=== PATIENT | male | born 1935 | race American Indian/Alaskan Native ===

== ENCOUNTER 2020-09-02 09:08 | Emergency (ER) | payer MEDICARE ==
--- NOTE | 2020-09-02 11:08 | Emergency Department Report ---
HPI - General Chief Complaint: Dyspnea/Respdistress Time Seen by Provider: 09/02/20 10:17 - HPI HPI: 84-year-old male with history of dementia brought in by EMS [facility] his [facility] reportedly for complaint of the patient being unresponsive. However, ac cording to the EMS report, when they arrived the patient was alert and oriented and without complaints. It is unclear why he was transported to the emergency room. The patient is alert and oriented to self and place but not to time or situation. However he is able to converse and answer questions appropriately. He denies any physical symptoms or complaints whatsoever. He denies any fever/chills, vision change, headache, chest pain, cough, shortness of breath, abdominal pain, nausea/vomiting, dysuria, focal weakness, sensory changes, or any other complaints. ED Past Medical Hx - Past Medical History Previous Medical History?: Yes Hx CVA: No Hx Congestive Heart Failure: No Hx Deep Vein Thrombosis: No Hx of Cancer: No Hx Arthritis: No Hx Asthma: No Hx COPD: No Additional medical history: ALzhiemers - Surgical History Past Surgical History?: No - Social History Smoking Status: Unknown if ever smoked Substance Use Type: None - Medications Home Medications: Home Medications Medication Instructions Recorded Confirmed Last Taken Type Unobtainable 09/02/20 09/02/20 Unknown History ED Review of Systems ROS: Stated complaint: SOB Other details as noted in HPI Constitutional: denies: chills, fever Eyes: denies: eye pain, vision change ENT: denies: throat pain, congestion Respiratory: denies: cough, shortness of breath Cardiovascular: denies: chest pain, palpitations, syncope Gastrointestinal: denies: abdominal pain, nausea, vomiting Genitourinary: denies: dysuria, frequency Musculoskeletal: denies: back pain Skin: denies: rash Neurological: denies: headache, weakness, numbness Physical Exam - Physical Exam Vital Signs: Vital Signs 09/02/20 09/02/20 09/02/20 09:36 09:42 09:43 Temperature 97.4 F L 97.4 F L Pulse Rate 89 18 L Respiratory 16 18 18 Rate Blood Pressure 154/73 Blood Pressure 154/86 [Left] O2 Sat by Pulse 99 99 99 Oximetry Physical Exam: GENERAL: Skinny elderly male. No acute distress HEENT: Normocephalic. No obvious signs of trauma. Moist mucous membranes. EYES: Extraocular movements are intact. Pupils are equal round and reactive to light bilaterally NECK: Supple. Trachea is midline. LUNGS: Nonlabored breathing. Equal chest rise bilaterally. Clear to auscultation bilaterally. HEART/CARDIOVASCULAR: Regular rate and rhythm. No murmurs or rubs. VASCULAR: 2+ peripheral pulses. Cap refill < 2 seconds ABDOMEN: Abdomen is soft and nondistended. There is no significant tenderness, guarding or rebound. SKIN: Skin is warm and dry NEURO: Patient is awake, alert, and oriented to self and place. 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 No focal deficits. Normal motor and sensory exam throughout. Normal speech. MUSCULOSKELETAL: No obvious deformities. No significant tenderness. Normal ROM throughout. BACK/SPINE: No midline tenderness or step-offs of the C/T/L spine. No costovertebral angle tenderness. ED Course Vital Signs 09/02/20 09/02/20 09/02/20 09:36 09:42 09:43 Temperature 97.4 F L 97.4 F L Pulse Rate 89 18 L Respiratory 16 18 18 Rate Blood Pressure 154/73 Blood Pressure 154/86 [Left] O2 Sat by Pulse 99 99 99 Oximetry ED Medical Decision Making - Lab Data Result diagrams: 09/02/20 14:45 09/02/20 14:45 Lab Results 09/02/20 09/02/20 09/02/20 Range/Units 14:45 14:45 14:45 WBC 8.1 (4.5-11.0) K/mm3 RBC 3.90 (3.65-5.03) M/mm3 Hgb 12.8 (11.8-15.2) gm/dl Hct 38.4 (35.5-45.6) % MCV 99 H (84-94) fl MCH 33 H (28-32) pg MCHC 33 (32-34) % RDW 14.6 (13.2-15.2) % Plt Count 132 L (140-440) K/mm3 Lymph % (Auto) 11.0 L (13.4-35.0) % [place] % (Auto) 8.7 H (0.0-7.3) % Eos % (Auto) 0.1 (0.0-4.3) % Baso % (Auto) 1.0 (0.0-1.8) % Lymph # (Auto) 0.9 L (1.2-5.4) K/mm3 [place] # (Auto) 0.7 (0.0-0.8) K/mm3 Eos # (Auto) 0.0 (0.0-0.4) K/mm3 Baso # (Auto) 0.1 (0.0-0.1) K/mm3 Seg Neutrophils % 79.2 H (40.0-70.0) % Seg Neutrophils # 6.4 (1.8-7.7) K/mm3 Sodium 137 (137-145) mmol/L Potassium 4.1 (3.6-5.0) mmol/L Chloride 102.8 (98-107) mmol/L Carbon Dioxide 25 (22-30) mmol/L Anion Gap 13 mmol/L BUN 18 (9-20) mg/dL Creatinine 1.1 (0.8-1.3) mg/dL Estimated GFR > 60 ml/min BUN/Creatinine Ratio 16 % Glucose 133 H (75-100) mg/dL Calcium 8.9 (8.4-10.2) mg/dL Magnesium 2.10 (1.7-2.3) mg/dL Total Bilirubin 0.40 (0.1-1.2) mg/dL Direct Bilirubin < 0.2 (0-0.2) mg/dL Indirect Bilirubin 0.2 mg/dL AST 21 (5-40) units/L ALT 15 (7-56) units/L Alkaline Phosphatase 82 (35-129) units/L Ammonia 53.0 (25-60) umol/L Troponin T < 0.010 (0.00-0.029) ng/mL NT-Pro-B Natriuret Pep 544.6 (0-900) pg/mL Total Protein 6.4 (6.3-8.2) g/dL Albumin 3.4 L (3.9-5) g/dL Albumin/Globulin Ratio 1.1 % Lipase 40 (13-60) units/L Salicylates (2.8-20.0) mg/dL Acetaminophen (10.0-30.0) ug/mL 09/02/20 09/02/20 Range/Units 14:45 14:45 WBC (4.5-11.0) K/mm3 RBC (3.65-5.03) M/mm3 Hgb (11.8-15.2) gm/dl Hct (35.5-45.6) % MCV (84-94) fl MCH (28-32) pg MCHC (32-34) % RDW (13.2-15.2) % Plt Count (140-440) K/mm3 Lymph % (Auto) (13.4-35.0) % [place] % (Auto) (0.0-7.3) % Eos % (Auto) (0.0-4.3) % Baso % (Auto) (0.0-1.8) % Lymph # (Auto) (1.2-5.4) K/mm3 [place] # (Auto) (0.0-0.8) K/mm3 Eos # (Auto) (0.0-0.4) K/mm3 Baso # (Auto) (0.0-0.1) K/mm3 Seg Neutrophils % (40.0-70.0) % Seg Neutrophils # (1.8-7.7) K/mm3 Sodium (137-145) mmol/L Potassium (3.6-5.0) mmol/L Chloride (98-107) mmol/L Carbon Dioxide (22-30) mmol/L Anion Gap mmol/L BUN (9-20) mg/dL Creatinine (0.8-1.3) mg/dL Estimated GFR ml/min BUN/Creatinine Ratio % Glucose (75-100) mg/dL Calcium (8.4-10.2) mg/dL Magnesium (1.7-2.3) mg/dL Total Bilirubin (0.1-1.2) mg/dL Direct Bilirubin (0-0.2) mg/dL Indirect Bilirubin mg/dL AST (5-40) units/L ALT (7-56) units/L Alkaline Phosphatase (35-129) units/L Ammonia (25-60) umol/L Troponin T (0.00-0.029) ng/mL NT-Pro-B Natriuret Pep (0-900) pg/mL Total Protein (6.3-8.2) g/dL Albumin (3.9-5) g/dL Albumin/Globulin Ratio % Lipase (13-60) units/L Salicylates < 0.3 L (2.8-20.0) mg/dL Acetaminophen 5.0 L (10.0-30.0) ug/mL - EKG Data -: EKG Interpreted by Tx - EKG Data 09/02/20 20:28 Sinus bradycardia. Normal axis. Normal intervals. No ectopy. No significant ST segment or T wave abnormalities. 09/02/20 20:28 - Radiology Data CT BRAIN: 09/02/2020 INDICATION / CLINICAL INFORMATION: AMS. COMPARISON: None available. FINDINGS: BRAIN/INTRACRANIAL STRUCTURES: Unenhanced CT images of the brain demonstrate no evidence of acute intracranial abnormality. Ventricles and sulci are prominent in size, consistent with prominent age-related atrophic change. Small focal area of cortical encephalomalacia is located in the inferior right cerebellar hemisphere. Extensive chronic white matter hypoattenuation is present throughout the cerebral hemispheric white matter. There is no evidence of acute ischemic injury, hemorrhage, or mass. There are no abnormal extra-axial fluid collections. EXTRACRANIAL STRUCTURES: Unremarkable. IMPRESSION: No acute abnormality. Chronic and age-related changes. All CT scans at this location are performed using dose reduction to ALARA by means of automated exposure control. Signer Name: Alberto Chapman MD Signed: 09/02/2020 1:34 PM Workstation Name: [id number] CHEST 2 VIEWS INDICATION / CLINICAL INFORMATION: SOB. COMPARISON: None available. FINDINGS: SUPPORT DEVICES: None. HEART / MEDIASTINUM: No significant abnormality. LUNGS / PLEURA: No significant pulmonary or pleural abnormality. No pneumothorax. ADDITIONAL FINDINGS: No significant additional findings. IMPRESSION: 1. No acute findings. Signer Name: Jonathan Dietz MD Signed: 09/02/2020 10:35 AM Workstation Name: [id number] - Medical Decision Making 84-year-old male with history of dementia who was brought in by EMS [facility] his [facility] due to the complaint of the patient being unresponsive. However, he was alert and oriented when EMS arrived and was still transported to the emergency room. Upon my assessment of the patient, he is alert and oriented to self and place but not to time or situation. He is able to answer questions appropriately. He denies any physical symptoms or complaints whatsoever. He is afebrile and with normal vital signs with the exception of hypertension. Specifically, he is satting 97 to 100% on room air. Physical examination reveals no gross abnormalities and his lungs are clear to auscultation bilatera lly. We will contact the patient's [facility] to collect further information to guide any diagnostic work-up given that the patient has no complaints, normal vital signs, and no significant abnormalities on physical exam. At 12:45 PM, I spoke over the phone with the patient's daughter, Kellee loo, who was able to provide further information. She stated that she heard the same story from the [facility], that the patient became extremely somnolent and unresponsive with abnormal breathing. She notes that he has had waxing and waning mental status for a while related to his dementia, but apparently he has been more somnolent than normal for the past few days. She notes that he does have a history of frequent UTIs in the past and is seen a urologist and has been hospitalized for this. She is not aware of him experiencing any other symptoms or complaints. Therefore, with this additional information I will perform broad work-up with a full set of labs, cultures, EKG, CT of the head, and close observation. At 3 PM, the nurse alerted me that he tried to straight cath the patient but was unable to obtain any urine and feels that there was no urine in his bladder. I ordered 1 L of IV fluids to be given. I went to reassess the patient and he remains with stable vital signs and no complaints. CT of the head reveals no acute abnormalities. Labs have resulted and reveal no significant leukocytosis or anemia. Creatinine is within normal range and there are no significant electrolyte abnormalities. We will continue to observe the patient and give IV fluid rehydration to ensure that he has adequate urine output and will follow up urinalysis. The patient received 1 L of IV fluids and has still not urinated. The nurse attempted to pass a [place] catheter but was unable. I performed a bedside ultrasound which revealed roughly 250 to 300 cc of urine in the bladder. Further attempts were made to place a catheter using a 14 Japanese coud catheter but were unsuccessful. Given that the patient requires urologic evaluation and intervention, I have placed a call to [facility] At 8 PM I spoke with Dr. Cagle from [facility] regarding the case. They decided that the patient should be transferred to [facility] to the ER with the accepting physician being Dr. Mckee. They will arrange transport. I spoke with the patient's daughter over the phone to update her about the case and she expressed understanding and agreement with the transfer. Critical care attestation.: If time is entered above; I have spent that time in minutes in the direct care of this critically ill patient, excluding procedure time. ED Disposition Clinical Impression: Urinary retention, Dementia, Prostate hypertrophy Disposition: DC/TX-70 ANOTHER TYPE HLTHCARE Is pt being admited?: No Condition: Stable Referrals: JAVY MANUEL [Other] - 3-5 Days
--- NOTE | 2020-09-02 11:39 | XRay Report ---
CHEST 2 VIEWS INDICATION / CLINICAL INFORMATION: SOB. COMPARISON: None available. FINDINGS: SUPPORT DEVICES: None. HEART / MEDIASTINUM: No significant abnormality. LUNGS / PLEURA: No significant pulmonary or pleural abnormality. No pneumothorax. ADDITIONAL FINDINGS: No significant additional findings. IMPRESSION: 1. No acute findings. Signer Name: Jonathan Dietz MD Signed: 09/02/2020 11:35 AM Workstation Name: [id number]
[2020-09-02] MEDS ORDERED: SODIUM CHLORIDE 0.9% 500 ML 500 ML IV ONE (12:59)
--- NOTE | 2020-09-02 14:39 | Cat Scan Report ---
CT BRAIN: 09/02/2020 INDICATION / CLINICAL INFORMATION: AMS. COMPARISON: None available. FINDINGS: BRAIN/INTRACRANIAL STRUCTURES: Unenhanced CT images of the brain demonstrate no evidence of acute int racranial abnormality. Ventricles and sulci are prominent in size, consistent with prominent age-related atrophic change. Sm all focal area of cortical encephalomalacia is located in the inferior right cerebellar hemisphere. Extensive chronic white matter hypoattenuation is present throughout the cerebral hemispheric white m atter. There is no evidence of acute ischemic injury, hemorrhage, or mass. There are no abnormal extra-axial fluid collections. EXTRACRANIAL STRUCTURES: Unremarkable. IMPRESSION: No acute abnormality. Chronic and age-related changes. All CT scans at this location are performed using dose reduction to ALARA by means of automated expos ure control. Signer Name: Alberto Chapman MD Signed: 09/02/2020 2:34 PM Workstation Name: [id number]
[2020-09-02 15:23] LABS: Basophils # (Auto) 0.1 K/mm3 (0.0-0.1); Eosinophils % (Auto) 0.1 % (0.0-4.3); Hematocrit 38.4 % (35.5-45.6); Hemoglobin 12.8 gm/dl (11.8-15.2); Lymphocytes # (Auto) 0.9 K/mm3 (1.2-5.4); Mean Corpuscular HGB Conc 33 % (32-34); Mean Corpuscular Volume 99 fl (84-94); Monocytes # (Auto) 0.7 K/mm3 (0.0-0.8); Monocytes % (Auto) 8.7 % (0.0-7.3); Platelet Count 132 K/mm3 (140-440); Red Cell Distribution Width 14.6 % (13.2-15.2)
[2020-09-02] MEDS ORDERED: SODIUM CHLORIDE 0.9% 1000 ML 1,000 ML IV ONE (15:25)
[2020-09-02 15:27] LABS: Alanine Aminotransferase 15 units/L (7-56); Albumin 3.4 g/dL (3.9-5); BUN/Creatinine Ratio 16; Blood Urea Nitrogen 18 mg/dL (9-20); Calcium 8.9 mg/dL (8.4-10.2); Hemolysis Index 9
[2020-09-02 15:32] LABS: Bilirubin,Direct < 0.2 mg/dL (0-0.2)
[2020-09-03 00:30] VITALS: BP 132/96
--- NOTE | 2020-09-03 10:19 | Electrocardiograph Report ---
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
== END 2020-09-03 01:01 | disposition other institution (70) ==
LOC: ED 09:08
DX: R33.9 Retention of urine, unspecified (principal); N40.0 Benign prostatic hyperplasia without lower urinary tract symptoms; G30.9 Alzheimer's disease, unspecified; F02.80 Dementia in other diseases classified elsewhere, unspecified severity, without behavioral disturbance, psychotic disturbance, mood disturbance, and anxiety
CPT/HCPCS: 36415; 70450; 71046; 80048; 80076; 82140; 83690; 83735; 83880; 84484; 85025; 87040; 93005; 96360; 96361; 99285; J7030; 80320; G0480

== ENCOUNTER 2020-09-14 11:11 | Inpatient (IN) | payer MEDICARE ==
--- NOTE | 2020-09-14 12:48 | Emergency Department Report ---
ED General Adult HPI - General Chief complaint: Medical Clearance Stated complaint: HYPOTENSION/GENERAL WEAKNESS Time Seen by Provider: 09/14/20 12:02 Source: EMS Mode of arrival: Stretcher Limitations: No Limitations - History of Present Illness Initial comments: The patient presents to the emergency department from [facility] for hypotension. Upon patient's arrival to emergency department his blood pressure is 137/51. Patient has no complaints. Patient denies chest pain, shortness breath, or abdominal pain. -: unknown Severity scale (0 -10): 0 Consistency: now resolved Improves with: none Worsens with: none Associated Symptoms: denies other symptoms Treatments Prior to Arrival: none - Related Data Home Medications Medication Instructions Recorded Confirmed Last Taken Donepezil HCl [Donepezil HCl Odt] 10 mg PO QDAY 09/14/20 09/14/20 Unknown Mirtazapine [Remeron 15mg TAB] 15 mg PO QHS 09/14/20 09/14/20 Unknown Tamsulosin [Flomax] 0.4 mg PO QDAY 09/14/20 09/14/20 Unknown Trazodone HCl 50 mg PO QDAY 09/14/20 09/14/20 Unknown Allergies Allergy/AdvReac Type Severity Reaction Status Date / Time No Known Allergies Allergy Unverified 09/02/20 09:20 ED Review of Systems ROS: Stated complaint: HYPOTENSION/GENERAL WEAKNESS Other details as noted in HPI Comment: All other systems reviewed and negative Constitutional: denies: chills, fever Eyes: denies: eye pain, eye discharge, vision change ENT: denies: ear pain, throat pain Respiratory: denies: cough, shortness of breath, wheezing Cardiovascular: denies: chest pain, palpitations Endocrine: no symptoms reported Gastrointestinal: denies: abdominal pain, nausea, diarrhea Genitourinary: denies: urgency, dysuria Musculoskeletal: denies: back pain, joint swelling, arthralgia Skin: denies: rash, lesions Neurological: denies: headache, weakness, paresthesias Psychiatric: denies: anxiety, depression Hematological/Lymphatic: denies: easy bleeding, easy bruising ED Past Medical Hx - Past Medical History Hx CVA: No Hx Congestive Heart Failure: No Hx Deep Vein Thrombosis: No Hx Arthritis: No Hx Asthma: No Hx COPD: No Additional medical history: ALzhiemers - Social History Smoking Status: Unknown if ever smoked Substance Use Type: None - Medications Home Medications: Home Medications Medication Instructions Recorded Confirmed Last Taken Type Donepezil HCl [Donepezil HCl Odt] 10 mg PO QDAY 09/14/20 09/14/20 Unknown History Mirtazapine [Remeron 15mg TAB] 15 mg PO QHS 09/14/20 09/14/20 Unknown History Tamsulosin [Flomax] 0.4 mg PO QDAY 09/14/20 09/14/20 Unknown History Trazodone HCl 50 mg PO QDAY 09/14/20 09/14/20 Unknown History ED Physical Exam - General Limitations: No Limitations General appearance: alert, in no apparent distress - Head Head exam: Present: atraumatic, normocephalic - Eye Eye exam: Present: normal appearance, PERRL - ENT ENT exam: Present: mucous membranes moist - Neck Neck exam: Present: normal inspection - Respiratory Respiratory exam: Present: normal lung sounds bilaterally. Absent: respiratory distress - Cardiovascular Cardiovascular Exam: Present: regular rate, normal rhythm. Absent: systolic murmur, diastolic murmur, rubs, gallop - GI/Abdominal GI/Abdominal exam: Present: soft, normal bowel sounds. Absent: distended, tenderness - Rectal Rectal exam: Present: deferred - Extremities Exam Extremities exam: Present: normal inspection - Back Exam Back exam: Present: normal inspection - Neurological Exam Neurological exam: Present: alert, oriented X3, CN II-XII intact. Absent: motor sensory deficit - Psychiatric Psychiatric exam: Present: normal affect, normal mood - Skin Skin exam: Present: warm, dry, intact, normal color. Absent: rash ED Course Vital Signs 09/14/20 09/14/20 09/14/20 11:54 12:15 12:19 Temperature 97.6 F Pulse Rate 86 84 Respiratory 16 18 Rate Blood Pressure 137/51 103/68 Blood Pressure 103/68 [Left] O2 Sat by Pulse 100 96 Oximetry 09/14/20 09/14/20 09/14/20 12:20 13:15 14:15 Temperature Pulse Rate 79 84 Respiratory 17 23 Rate Blood Pressure 131/62 100/47 Blood Pressure [Left] O2 Sat by Pulse 96 Oximetry 09/14/20 09/14/20 09/14/20 16:01 16:15 17:15 Temperature Pulse Rate 86 83 96 H Respiratory 22 21 23 Rate Blood Pressure 100/47 103/53 109/58 Blood Pressure [Left] O2 Sat by Pulse Oximetry 09/14/20 17:20 Temperature Pulse Rate Respiratory Rate Blood Pressure Blood Pressure [Left] O2 Sat by Pulse 96 Oximetry ED Medical Decision Making - Lab Data Result diagrams: 09/14/20 12:28 09/14/20 12:28 Lab Results 09/14/20 09/14/20 09/14/20 Range/Units 12:28 12:28 18:31 WBC 17.3 H (4.5-11.0) K/mm3 RBC 4.05 (3.65-5.03) M/mm3 Hgb 13.1 (11.8-15.2) gm/dl Hct 38.8 (35.5-45.6) % MCV 96 H (84-94) fl MCH 32 (28-32) pg MCHC 34 (32-34) % RDW 14.9 (13.2-15.2) % Plt Count 169 (140-440) K/mm3 Add Manual Diff Complete Total Counted 100 Seg Neutrophils % [employer] Seg Neuts % (Manual) 89.0 H (40.0-70.0) % Band Neutrophils % 6.0 % Lymphocytes % (Manual) 3.0 L (13.4-35.0) % Monocytes % (Manual) 1.0 (0.0-7.3) % Metamyelocytes % 1.0 % Nucleated RBC % Not Reportable Seg Neutrophils # Man 15.4 H (1.8-7.7) K/mm3 Band Neutrophils # 1.0 K/mm3 Lymphocytes # (Manual) 0.5 L (1.2-5.4) K/mm3 Abs React Lymphs (Man) 0.0 K/mm3 Monocytes # (Manual) 0.2 (0.0-0.8) K/mm3 Eosinophils # (Manual) 0.0 (0.0-0.4) K/mm3 Basophils # (Manual) 0.0 (0.0-0.1) K/mm3 Metamyelocytes # 0.2 K/mm3 Myelocytes # 0.0 K/mm3 Promyelocytes # 0.0 K/mm3 Blast Cells # 0.0 K/mm3 WBC Morphology Not Reportable Hypersegmented Neuts Not Reportable Hyposegmented Neuts Not Reportable Hypogranular Neuts Not Reportable Smudge Cells Not Reportable Toxic Granulation Not Reportable Toxic Vacuolation Not Reportable Dohle Bodies Not Reportable Pelger-Huet Anomaly Not Reportable Liliana Rods Not Reportable Platelet Estimate Consistent w auto Clumped Platelets Not Reportable Plt Clumps, EDTA Not Reportable Large Platelets Not Reportable Giant Platelets Not Reportable Platelet Satelliting Not Reportable Plt Morphology Comment Not Reportable RBC Morphology Not Reportable Dimorphic RBCs Not Reportable Polychromasia Not Reportable Hypochromasia Not Reportable Poikilocytosis Not Reportable Anisocytosis 1+ Microcytosis Not Reportable Macrocytosis Not Reportable Spherocytes Not Reportable Pappenheimer Bodies Not Reportable Sickle Cells Not Reportable Target Cells Not Reportable Tear Drop Cells Not Reportable Ovalocytes Not Reportable Helmet Cells Not Reportable Cee-Fox Bodies Not Reportable [place] Rings Not Reportable Maggi Cells Not Reportable Bite Cells Not Reportable Crenated Cell Not Reportable Elliptocytes Not Reportable Acanthocytes (Spur) Not Reportable Rouleaux Not Reportable Hemoglobin C Crystals Not Reportable Schistocytes Not Reportable Malaria parasites Not Reportable Juan [place] Bodies Not Reportable Hem Pathologist Commnt No Sodium 140 (137-145) mmol/L Potassium 4.5 (3.6-5.0) mmol/L Chloride 106.8 (98-107) mmol/L Carbon Dioxide 17 L (22-30) mmol/L Anion Gap 21 mmol/L BUN 69 H (9-20) mg/dL Creatinine 2.2 H (0.8-1.3) mg/dL Estimated GFR 35 ml/min BUN/Creatinine Ratio 31 % Glucose 124 H (75-100) mg/dL Lactic Acid 4.00 H* (0.7-2.0) mmol/L Calcium 8.1 L (8.4-10.2) mg/dL Total Bilirubin 0.50 (0.1-1.2) mg/dL AST 27 (5-40) units/L ALT 21 (7-56) units/L Alkaline Phosphatase 95 (35-129) units/L Total Protein 5.0 L (6.3-8.2) g/dL Albumin 2.0 L (3.9-5) g/dL Albumin/Globulin Ratio 0.7 % Urine Color (Yellow) Urine Turbidity (Clear) Urine pH (5.0-7.0) Ur Specific [place] (1.003-1.030) Urine Protein (Negative) mg/dL Urine Glucose (UA) (Negative) mg/dL Urine Ketones (Negative) mg/dL Urine Blood (Negative) Urine Nitrite (Negative) Urine Bilirubin (Negative) Urine Urobilinogen (<2.0) mg/dL Ur Leukocyte Esterase (Negative) Urine WBC (Auto) (0.0-6.0) /HPF Urine RBC (Auto) (0.0-6.0) /HPF U Epithel Cells (Auto) (0-13.0) /HPF 09/14/20 Range/Units Unknown WBC (4.5-11.0) K/mm3 RBC (3.65-5.03) M/mm3 Hgb (11.8-15.2) gm/dl Hct (35.5-45.6) % MCV (84-94) fl MCH (28-32) pg MCHC (32-34) % RDW (13.2-15.2) % Plt Count (140-440) K/mm3 Add Manual Diff Total Counted Seg Neutrophils % Seg Neuts % (Manual) (40.0-70.0) % Band Neutrophils % % Lymphocytes % (Manual) (13.4-35.0) % Monocytes % (Manual) (0.0-7.3) % Metamyelocytes % % Nucleated RBC % Seg Neutrophils # Man (1.8-7.7) K/mm3 Band Neutrophils # K/mm3 Lymphocytes # (Manual) (1.2-5.4) K/mm3 Abs React Lymphs (Man) K/mm3 Monocytes # (Manual) (0.0-0.8) K/mm3 Eosinophils # (Manual) (0.0-0.4) K/mm3 Basophils # (Manual) (0.0-0.1) K/mm3 Metamyelocytes # K/mm3 Myelocytes # K/mm3 Promyelocytes # K/mm3 Blast Cells # K/mm3 WBC Morphology Hypersegmented Neuts Hyposegmented Neuts Hypogranular Neuts Smudge Cells Toxic Granulation Toxic Vacuolation Dohle Bodies Pelger-Huet Anomaly Liliana Rods Platelet Estimate Clumped Platelets Plt Clumps, EDTA Large Platelets Giant Platelets Platelet Satelliting Plt Morphology Comment RBC Morphology Dimorphic RBCs Polychromasia Hypochromasia Poikilocytosis Anisocytosis Microcytosis Macrocytosis Spherocytes Pappenheimer Bodies Sickle Cells Target Cells Tear Drop Cells Ovalocytes Helmet Cells Cee-Fox Bodies [place] Rings [place] Cells Bite Cells Crenated Cell Elliptocytes Acanthocytes (Spur) Rouleaux Hemoglobin C Crystals Schistocytes Malaria parasites Juan Antonio Bodies Hem Pathologist Commnt Sodium (137-145) mmol/L Potassium (3.6-5.0) mmol/L Chloride (98-107) mmol/L Carbon Dioxide (22-30) mmol/L Anion Gap mmol/L BUN (9-20) mg/dL Creatinine (0.8-1.3) mg/dL Estimated GFR ml/min BUN/Creatinine Ratio % Glucose (75-100) mg/dL Lactic Acid (0.7-2.0) mmol/L Calcium (8.4-10.2) mg/dL Total Bilirubin (0.1-1.2) mg/dL AST (5-40) units/L ALT (7-56) units/L Alkaline Phosphatase (35-129) units/L Total Protein (6.3-8.2) g/dL Albumin (3.9-5) g/dL Albumin/Globulin Ratio % Urine Color [place] (Yellow) Urine Turbidity Cloudy (Clear) Urine pH 5.0 (5.0-7.0) Ur Specific [place] 1.019 (1.003-1.030) Urine Protein 100 mg/dl (Negative) mg/dL Urine Glucose (UA) 50 (Negative) mg/dL Urine Ketones Tr (Negative) mg/dL Urine Blood Lg (Negative) Urine Nitrite Neg (Negative) Urine Bilirubin Neg (Negative) Urine Urobilinogen < 2.0 (<2.0) mg/dL Ur Leukocyte Esterase Tr (Negative) Urine WBC (Auto) < 1.0 (0.0-6.0) /HPF Urine RBC (Auto) < 1.0 (0.0-6.0) /HPF U Epithel Cells (Auto) 3.0 (0-13.0) /HPF - Radiology Data Radiology results: report reviewed - Medical Decision Making Spoke to at 5:35 PM the patient was discussed in detail there was concern due to the patient's elevated white count so at that time further work- up was done including CT. I was instructed asked the patient if he wanted be transferred to [facility] at this hospital and after speaking to the patient he would rather stay here. At 6:45 PM agreed that the patient to stay at this hospital. Patient given IV fluids and IV antibiotics after results of CAT scan revealed colitis Critical Care Time: Yes Critical care time in (mins) excluding proc time.: 35 Critical care attestation.: If time is entered above; I have spent that time in minutes in the direct care of this critically ill patient, excluding procedure time. ED Disposition Clinical Impression: Colitis Disposition: [id number] OP ADMIT IP TO THIS HOSP Is pt being admited?: Yes Does the pt Need Aspirin: Yes Condition: Fair Referrals: [facility] [Other] - 3-5 Days
[2020-09-14 12:49] LABS: Hematocrit 38.8 % (35.5-45.6); Hemoglobin 13.1 gm/dl (11.8-15.2); Mean Corpuscular HGB Conc 34 % (32-34); Mean Corpuscular Volume 96 fl (84-94); Platelet Count 169 K/mm3 (140-440); Red Blood Count 4.05 M/mm3 (3.65-5.03); Red Cell Distribution Width 14.9 % (13.2-15.2)
[2020-09-14 13:08] LABS: Calcium 8.1 mg/dL (8.4-10.2)
[2020-09-14 14:12] LABS: Bilirubin,Urine NEG (Negative); Blood,Urine LG (Negative); Color,Urine Amber (Yellow); Urobilinogen,Urine < 2.0 mg/dL (<2.0)
[2020-09-14 14:18] LABS: RBC,Urine < 1.0 /HPF (0.0-6.0); WBC,Urine < 1.0 /HPF (0.0-6.0)
[2020-09-14 16:15] LABS: Total Cells Counted 100
[2020-09-14 16:16] LABS: Anisocytosis 1+; Platelet Estimate Consistent w Auto
[2020-09-14] MEDS ORDERED: SODIUM CHLORIDE 0.9% 1000 ML 1,000 ML IV SCH (16:45)
--- NOTE | 2020-09-14 18:30 | Cat Scan Report ---
CT ABDOMEN AND PELVIS WITH CONTRAST INDICATION / CLINICAL INFORMATION: Leukocytosis. TECHNIQUE: Axial CT images were obtained through the abdomen and pelvis after 75 mL Omnipaque [address] scans at this location are performed using CT dose reduction for ALARA by means of automated e xposure control. COMPARISON: None available. 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 LIVER: No significant abnormality. BILIARY SYSTEM: No significant abnormality. PANCREAS: No significant abnormality. SPLEEN: No significant abnormality. ADRENALS: No significant abnormality. KIDNEYS and URETERS: No significant abnormality. STOMACH / BOWEL: There is severe circumferential wall thickening involving the entirety of the colon with associated mucosal hyperenhancement and submucosal edema. There is pericolonic stranding. There is no evidence of bowel obstruction. PERITONEUM: Small amount of ascites. No free air. No fluid collection. LYMPH NODES: No significant adenopathy. VASCULAR STRUCTURES: Mild to moderate aortic atherosclerosis. URINARY BLADDER: No significant abnormality. REPRODUCTIVE ORGANS: Enlarged prostate. ADDITIONAL FINDINGS: None. SKELETAL SYSTEM: No significant abnormality. IMPRESSION: 1. Severe circumferential wall thickening involving the entirety of the colon with associated mucosal hyperenhancement and submucosal edema. This is compatible with colitis, which may be infectious or i nflammatory in etiology. There is associated small amount of ascites. Signer Name: Yanet Burgos MD Signed: 09/14/2020 6:26 PM Workstation Name: [id number]
--- NOTE | 2020-09-14 18:34 | XRay Report ---
CHEST 1 VIEW INDICATION / CLINICAL INFORMATION: hypotension. COMPARISON: Chest radiograph 09/02/2020 FINDINGS: SUPPORT DEVICES: None. HEART / MEDIASTINUM: No significant abnormality. LUNGS / PLEURA: No significant pulmonary or pleural abnormality. No pneumothorax. ADDITIONAL FINDINGS: No significant additional findings. IMPRESSION: 1. No acute findings. Signer Name: Yanet Burgos MD Signed: 09/14/2020 6:30 PM Workstation Name: [id number]
[2020-09-14] MEDS ORDERED: PIPERACIL/TAZOBACTA 4.5/NS 100 4.5 GM/100 ML VIAL IV ONE (18:44)
[2020-09-14] MEDS ORDERED: HYDROmorphone 1 MG/1 ML INJ IV PRN (22:00)
[2020-09-14] MEDS ORDERED: MORPHINE 2 MG/1 ML INJ IV PRN (22:00)
[2020-09-14] MEDS ORDERED: ONDANSETRON 4 MG/2 ML INJ IV PRN (22:00)
[2020-09-14] MEDS ORDERED: ACETAMINOPHEN 325 MG TAB PO PRN (22:00)
[2020-09-14] MEDS ORDERED: METOCLOPRAMIDE 10 MG/2 ML INJ IV PRN ×2 (22:00→23:00)
--- NOTE | 2020-09-14 22:05 | History and Physical Report ---
History of Present Illness Date of examination: 09/14/20 Date of admission: 09/14/20 19:33 Chief complaint: Hypotension History of present illness: 84-year-old male sent from dialysis for rapid heart rate. Because of the fast heart rate dialysis was not done no chest pain no shortness of breath. Episode of palpitations are present. No exacerbating or relieving factors. Diffuse abdominal pain. No diarrhea. Constipation. 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 - Social History Smoking Status: Former Smoker - Medications Home Medications: Home Medications Medication Instructions Recorded Confirmed Last Taken Type Aspirin 81 mg PO DAILY 12/22/19 12/24/19 12/23/19 08:00 History AtorvaSTATin 20 mg PO DAILY 12/22/19 12/24/19 12/23/19 08:00 History Cinacalcet 30 mg PO DAILY 12/22/19 12/24/19 12/23/19 08:00 History Ferrous Sulfate 325 mg PO DAILY 12/22/19 12/24/19 12/23/19 08:00 History Folic Acid 1 mg PO DAILY 12/22/19 12/24/19 12/23/19 08:00 History One-Daily Multi-Vitamin 1 tab PO DAILY 12/22/19 12/24/19 12/23/19 08:00 History amLODIPine 10 mg PO DAILY 12/22/19 12/24/19 12/23/19 08:00 History carvediloL 3.125 mg PO BID 12/22/19 12/24/19 12/20/19 08:00 History HYDROcodone/APAP 7.5-325 [[place] 1 each PO Q6HR PRN #30 tablet 12/24/19 Unknown Rx 7.5/325] Review of Systems ROS: Stated complaint: HEART RATE /PT STATES NO COMPLAINTS Other details as noted in HPI Constitutional: denies: chills, fever Eyes: denies: eye pain, eye discharge, vision change ENT: denies: ear pain, throat pain Respiratory: denies: cough, shortness of breath, wheezing Cardiovascular: palpitations. denies: chest pain Endocrine: no symptoms reported Gastrointestinal: denies: abdominal pain, nausea, diarrhea Genitourinary: denies: urgency, dysuria Musculoskeletal: denies: back pain, joint swelling, arthralgia Skin: denies: rash, lesions Neurological: denies: headache, weakness, paresthesias Psychiatric: denies: anxiety, depression Hematological/Lymphatic: denies: easy bleeding, easy bruising Medications and Allergies Allergies Allergy/AdvReac Type Severity Reaction Status Date / Time No Known Allergies Allergy Unverified 09/02/20 09:20 Home Medications Medication Instructions Recorded Confirmed Last Taken Type Donepezil HCl [Donepezil HCl Odt] 10 mg PO QDAY 09/14/20 09/14/20 Unknown History Mirtazapine [Remeron 15mg TAB] 15 mg PO QHS 09/14/20 09/14/20 Unknown History Tamsulosin [Flomax] 0.4 mg PO QDAY 09/14/20 09/14/20 Unknown History Trazodone HCl 50 mg PO QDAY 09/14/20 09/14/20 Unknown History Active Meds: Active Medications Sodium Chloride (Nacl 0.9% 1000 Ml) 1,000 mls @ 150 mls/hr IV DIRECT JEVON Last Admin: 09/14/20 19:35 Dose: 150 mls/hr Documented by: Exam - Constitutional Vitals: Temp Pulse Resp BP Pulse Ox 97.6 F 76 19 139/69 96 09/14/20 12:19 09/14/20 20:15 09/14/20 20:15 09/14/20 20:15 09/14/20 17:20 General appearance: Present: no acute distress, well-nourished - EENT Eyes: Present: PERRL ENT: hearing intact, clear oral mucosa - Neck Neck: Present: supple, normal ROM - Respiratory Respiratory effort: normal Respiratory: bilateral: CTA - Cardiovascular Heart rate: 120 Rhythm: regular Heart Sounds: Present: S1 & S2. Absent: rub, click - Extremities Extremities: pulses symmetrical, No edema Peripheral Pulses: within normal limits - Abdominal General gastrointestinal: Present: soft, non-tender, non-distended, normal bowel sounds Male genitourinary: Present: normal - Integumentary Integumentary: Present: clear, warm, dry - Musculoskeletal Musculoskeletal: gait normal, strength equal bilaterally - Psychiatric Psychiatric: appropriate mood/affect, intact judgment & insight - Neurologic Neurologic: CNII-XII intact, moves all extremities Results - Labs CBC & Chem 7: 09/15/20 06:46 09/15/20 06:46 Labs: Laboratory Last Values WBC 17.3 K/mm3 (4.5-11.0) H 09/14/20 12:28 RBC 4.05 M/mm3 (3.65-5.03) 09/14/20 12:28 Hgb 13.1 gm/dl (11.8-15.2) 09/14/20 12:28 Hct 38.8 % (35.5-45.6) 09/14/20 12:28 MCV 96 fl (84-94) H 09/14/20 12:28 MCH 32 pg (28-32) 09/14/20 12:28 MCHC 34 % (32-34) 09/14/20 12:28 RDW 14.9 % (13.2-15.2) 09/14/20 12:28 Plt Count 169 K/mm3 (140-440) 09/14/20 12:28 Add Manual Diff Complete 09/14/20 12:28 Total Counted 100 09/14/20 12:28 Seg Neutrophils % Insurance Salesman 09/14/20 12:28 Seg Neuts % (Manual) 89.0 % (40.0-70.0) H 09/14/20 12:28 Band Neutrophils % 6.0 % 09/14/20 12:28 Lymphocytes % (Manual) 3.0 % (13.4-35.0) L 09/14/20 12:28 Monocytes % (Manual) 1.0 % (0.0-7.3) 09/14/20 12:28 Metamyelocytes % 1.0 % 09/14/20 12:28 Nucleated RBC % Not Reportable 09/14/20 12:28 Seg Neutrophils # Man 15.4 K/mm3 (1.8-7.7) H 09/14/20 12:28 Band Neutrophils # 1.0 K/mm3 09/14/20 12:28 Lymphocytes # (Manual) 0.5 K/mm3 (1.2-5.4) L 09/14/20 12:28 Abs React Lymphs (Man) 0.0 K/mm3 09/14/20 12:28 Monocytes # (Manual) 0.2 K/mm3 (0.0-0.8) 09/14/20 12:28 Eosinophils # (Manual) 0.0 K/mm3 (0.0-0.4) 09/14/20 12:28 Basophils # (Manual) 0.0 K/mm3 (0.0-0.1) 09/14/20 12:28 Metamyelocytes # 0.2 K/mm3 09/14/20 12:28 Myelocytes # 0.0 K/mm3 09/14/20 12:28 Promyelocytes # 0.0 K/mm3 09/14/20 12:28 Blast Cells # 0.0 K/mm3 09/14/20 12:28 WBC Morphology Not Reportable 09/14/20 12:28 Hypersegmented Neuts Not Reportable 09/14/20 12:28 Hyposegmented Neuts Not Reportable 09/14/20 12:28 Hypogranular Neuts Not Reportable 09/14/20 12:28 Smudge Cells Not Reportable 09/14/20 12:28 Toxic Granulation Not Reportable 09/14/20 12:28 Toxic Vacuolation Not Reportable 09/14/20 12:28 Dohle Bodies Not Reportable 09/14/20 12:28 Pelger-Huet Anomaly Not Reportable 09/14/20 12:28 Lilinaa Rods Not Reportable 09/14/20 12:28 Platelet Estimate Consistent w auto 09/14/20 12:28 Clumped Platelets Not Reportable 09/14/20 12:28 Plt Clumps, EDTA Not Reportable 09/14/20 12:28 Large Platelets Not Reportable 09/14/20 12:28 Giant Platelets Not Reportable 09/14/20 12:28 Platelet Satelliting Not Reportable 09/14/20 12:28 Plt Morphology Comment Not Reportable 09/14/20 12:28 RBC Morphology Not Reportable 09/14/20 12:28 Dimorphic RBCs Not Reportable 09/14/20 12:28 Polychromasia Not Reportable 09/14/20 12:28 Hypochromasia Not Reportable 09/14/20 12:28 Poikilocytosis Not Reportable 09/14/20 12:28 Anisocytosis 1+ 09/14/20 12:28 Microcytosis Not Reportable 09/14/20 12:28 Macrocytosis Not Reportable 09/14/20 12:28 Spherocytes Not Reportable 09/14/20 12:28 Pappenheimer Bodies Not Reportable 09/14/20 12:28 Sickle Cells Not Reportable 09/14/20 12:28 Target Cells Not Reportable 09/14/20 12:28 Tear Drop Cells Not Reportable 09/14/20 12:28 Ovalocytes Not Reportable 09/14/20 12:28 Helmet Cells Not Reportable 09/14/20 12:28 [place] Bodies Not Reportable 09/14/20 12:28 [place] Rings Not Reportable 09/14/20 12:28 Maggi Cells Not Reportable 09/14/20 12:28 Bite Cells Not Reportable 09/14/20 12:28 Crenated Cell Not Reportable 09/14/20 12:28 Elliptocytes Not Reportable 09/14/20 12:28 Acanthocytes (Spur) Not Reportable 09/14/20 12:28 Rouleaux Not Reportable 09/14/20 12:28 Hemoglobin C Crystals Not Reportable 09/14/20 12:28 Schistocytes Not Reportable 09/14/20 12:28 Malaria parasites Not Reportable 09/14/20 12:28 Juan Antonio Bodies Not Reportable 09/14/20 12:28 Hem Pathologist Commnt No 09/14/20 12:28 Sodium 140 mmol/L (137-145) 09/14/20 12:28 Potassium 4.5 mmol/L (3.6-5.0) 09/14/20 12:28 Chloride 106.8 mmol/L (98-107) 09/14/20 12:28 Carbon Dioxide 17 mmol/L (22-30) L 09/14/20 12:28 Anion Gap 21 mmol/L 09/14/20 12:28 BUN 69 mg/dL (9-20) H 09/14/20 12:28 Creatinine 2.2 mg/dL (0.8-1.3) H 09/14/20 12:28 Estimated GFR 35 ml/min 09/14/20 12:28 BUN/Creatinine Ratio 31 % 09/14/20 12:28 Glucose 124 mg/dL (75-100) H 09/14/20 12:28 Lactic Acid 4.00 mmol/L (0.7-2.0) H* 09/14/20 18:31 Calcium 8.1 mg/dL (8.4-10.2) L 09/14/20 12:28 Total Bilirubin 0.50 mg/dL (0.1-1.2) 09/14/20 12:28 AST 27 units/L (5-40) 09/14/20 12:28 ALT 21 units/L (7-56) 09/14/20 12:28 Alkaline Phosphatase 95 units/L (35-129) 09/14/20 12:28 Total Protein 5.0 g/dL (6.3-8.2) L 09/14/20 12:28 Albumin 2.0 g/dL (3.9-5) L 09/14/20 12:28 Albumin/Globulin Ratio 0.7 % 09/14/20 12:28 Urine Color Martha (Yellow) 09/14/20 Unknown Urine Turbidity Cloudy (Clear) 09/14/20 Unknown Urine pH 5.0 (5.0-7.0) 09/14/20 Unknown Ur Specific [place] 1.019 (1.003-1.030) 09/14/20 Unknown Urine Protein 100 mg/dl mg/dL (Negative) 09/14/20 Unknown Urine Glucose (UA) 50 mg/dL (Negative) 09/14/20 Unknown Urine Ketones Tr mg/dL (Negative) 09/14/20 Unknown Urine Blood Lg (Negative) 09/14/20 Unknown Urine Nitrite Neg (Negative) 09/14/20 Unknown Urine Bilirubin Neg (Negative) 09/14/20 Unknown Urine Urobilinogen < 2.0 mg/dL (<2.0) 09/14/20 Unknown Ur Leukocyte Esterase Tr (Negative) 09/14/20 Unknown Urine WBC (Auto) < 1.0 /HPF (0.0-6.0) 09/14/20 Unknown Urine RBC (Auto) < 1.0 /HPF (0.0-6.0) 09/14/20 Unknown U Epithel Cells (Auto) 3.0 /HPF (0-13.0) 09/14/20 Unknown Microbiology: Microbiology 09/14/20 18:31 Peripheral/Venous Blood Culture - Preliminary Culture in Progress 09/14/20 18:31 Peripheral/Venous Blood Culture - Preliminary Culture in Progress - Imaging and Cardiology CT scan - abdomen: report reviewed Imaging and Cardiology: Abdominal CAT scan Severe circumferential wall thickening involving the entirety of the colon with associated mucosal erythema And submucosal edema. This is compatible with colitis which may be infectious or inflammatory in etiology there is associated small amount of ascites. Assessment and Plan Advance Directives: Yes (Full code) VTE prophylaxis?: Chemical Plan of care discussed with patient/family: Yes - Patient Problems (1) SIRS (systemic inflammatory response syndrome) Current Visit: Yes Status: Acute Plan to address problem: Patient has high white count and elevated lactic acid IV fluids and IV antibiotics for now (2) Colitis Current Visit: Yes Status: Acute Plan to address problem: Etiology unclear High white count Patient started on IV Zosyn GI consult requested To samples for culture sensitivity and C. difficile restaurant (3) Acute kidney injury Current Visit: Yes Status: Acute Plan to address problem: IV fluids for now There is apparently on dialysis Will call the [facility] to find out will order learning developer and resume hemodialysis if necessary Creatinine is low 2.2 and not consistent with end-stage renal disease (4) Hypertension Current Visit: Yes Status: Acute (5) Hypertension Current Visit: Yes Status: Chronic Qualifiers: Hypertension type: primary hypertension Qualified Code(s): I10 - Essential (primary) hypertension Plan to address problem: Antihypertensives on hold (6) DVT prophylaxis Current Visit: Yes Status: Acute Plan to address problem: On heparin and GI prophylaxis
[2020-09-14] MEDS: traZODone 50 MG TAB PO SCH (23:15)
[2020-09-14] MEDS: HEPARIN 5,000 UNIT/1 ML VIAL SUB-Q SCH (23:15)
[2020-09-14] MEDS: TAMSULOSIN 0.4 MG CAP PO SCH (23:15)
[2020-09-14] MEDS: FAMOTIDINE 20 MG/2 ML INJ IV SCH (23:16)
[2020-09-14] MEDS: MIRTAZAPINE 15 MG TAB PO SCH (23:16)
[2020-09-15] MEDS: PIPERACIL-TAZO 2.25 GM/50 ML 2.25 GM/50 ML BAG IV SCH ×3 (00:30→14:00)
[2020-09-15] MEDS: DONEPEZIL 10 MG TAB PO SCH ×2 (00:57→10:26)
[2020-09-15 07:14] LABS: Hematocrit 40.4 % (35.5-45.6); Hemoglobin 13.6 gm/dl (11.8-15.2); Mean Corpuscular HGB Conc 34 % (32-34); Mean Corpuscular Volume 96 fl (84-94); Platelet Count 155 K/mm3 (140-440); Red Blood Count 4.22 M/mm3 (3.65-5.03); Red Cell Distribution Width 14.3 % (13.2-15.2)
[2020-09-15 07:39] LABS: Albumin 1.9 g/dL (3.9-5); Calcium 8.1 mg/dL (8.4-10.2)
--- NOTE | 2020-09-15 10:10 | Progress Note ---
Assessment and Plan Assessment and plan: (1) SIRS (systemic inflammatory response syndrome) Current Visit: Yes Status: Acute Plan to address problem: Patient has high white count and elevated lactic acid IV fluids and IV antibiotics for now (2) Colitis Current Visit: Yes Status: Acute Plan to address problem: Etiology unclear High white count Patient started on IV Zosyn GI consult requested To samples for culture sensitivity and C. difficile restaurant (3) Acute kidney injury Current Visit: Yes Status: Acute Plan to address problem: IV fluids for now There is apparently on dialysis Will call the [facility] to find out will order crew boss and resume hemodialysis if necessary Creatinine is low 2.2 and not consistent with end-stage renal disease (4) Hypertension Current Visit: Yes Status: Acute (5) Hypertension Current Visit: Yes Status: Chronic Qualifiers: Hypertension type: primary hypertension Qualified Code(s): I10 - Essential (primary) hypertension Plan to address problem: Antihypertensives on hold (6) DVT prophylaxis Current Visit: Yes Status: Acute Plan to address problem: On heparin and GI prophylaxis 09/15/20 Patient with acute colitis, acute kidney injury. Nephrology and GI consulted, Continue iv Zosyn creatinine improved 2.0 today from 2.2 yesterday History Interval history: Patient sent in for hypotension, found to have colitis and U[facility]IL[facility] Hospitalist Physical - Physical exam Narrative exam: Gen: Not in acute distress, lying in bed HEENT: Normocephalic, atraumatic Neck : supple, no JVD Heart:S1 and S2 reg, no murmurs, rubs or gallop Lungs: clear to auscultation bilaterally, no wheeze Abd: Soft , mild tenderness, non distended, normal bowel sounds Ext: No edema, no clubbing, no cyanosis Neuro: Awake, alert, - Constitutional Vitals: Temp Pulse Resp BP Pulse Ox 98.0 F 93 H 18 111/68 98 09/15/20 08:06 09/15/20 08:06 09/15/20 08:06 09/15/20 08:06 09/15/20 08:06 General appearance: Present: no acute distress, well-nourished Results - Labs CBC & Chem 7: 09/15/20 06:46 09/15/20 06:46 Labs: Laboratory Last Values WBC 15.2 K/mm3 (4.5-11.0) H 09/15/20 06:46 RBC 4.22 M/mm3 (3.65-5.03) 09/15/20 06:46 Hgb 13.6 gm/dl (11.8-15.2) 09/15/20 06:46 Hct 40.4 % (35.5-45.6) 09/15/20 06:46 MCV 96 fl (84-94) H 09/15/20 06:46 MCH 32 pg (28-32) 09/15/20 06:46 MCHC 34 % (32-34) 09/15/20 06:46 RDW 14.3 % (13.2-15.2) 09/15/20 06:46 Plt Count 155 K/mm3 (140-440) 09/15/20 06:46 Add Manual Diff Complete 09/14/20 12:28 Total Counted 100 09/14/20 12:28 Seg Neutrophils % Head Inspector And Center Marker 09/15/20 06:46 Seg Neuts % (Manual) 89.0 % (40.0-70.0) H 09/14/20 12:28 Band Neutrophils % 6.0 % 09/14/20 12:28 Lymphocytes % (Manual) 3.0 % (13.4-35.0) L 09/14/20 12:28 Monocytes % (Manual) 1.0 % (0.0-7.3) 09/14/20 12:28 Metamyelocytes % 1.0 % 09/14/20 12:28 Nucleated RBC % Not Reportable 09/14/20 12:28 Seg Neutrophils # Man 15.4 K/mm3 (1.8-7.7) H 09/14/20 12:28 Band Neutrophils # 1.0 K/mm3 09/14/20 12:28 Lymphocytes # (Manual) 0.5 K/mm3 (1.2-5.4) L 09/14/20 12:28 Abs React Lymphs (Man) 0.0 K/mm3 09/14/20 12:28 Monocytes # (Manual) 0.2 K/mm3 (0.0-0.8) 09/14/20 12:28 Eosinophils # (Manual) 0.0 K/mm3 (0.0-0.4) 09/14/20 12:28 Basophils # (Manual) 0.0 K/mm3 (0.0-0.1) 09/14/20 12:28 Metamyelocytes # 0.2 K/mm3 09/14/20 12:28 Myelocytes # 0.0 K/mm3 09/14/20 12:28 Promyelocytes # 0.0 K/mm3 09/14/20 12:28 Blast Cells # 0.0 K/mm3 09/14/20 12:28 WBC Morphology Not Reportable 09/14/20 12:28 Hypersegmented Neuts Not Reportable 09/14/20 12:28 Hyposegmented Neuts Not Reportable 09/14/20 12:28 Hypogranular Neuts Not Reportable 09/14/20 12:28 Smudge Cells Not Reportable 09/14/20 12:28 Toxic Granulation Not Reportable 09/14/20 12:28 Toxic Vacuolation Not Reportable 09/14/20 12:28 Dohle Bodies Not Reportable 09/14/20 12:28 Pelger-Huet Anomaly Not Reportable 09/14/20 12:28 Liliana Rods Not Reportable 09/14/20 12:28 Platelet Estimate Consistent w auto 09/14/20 12:28 Clumped Platelets Not Reportable 09/14/20 12:28 Plt Clumps, EDTA Not Reportable 09/14/20 12:28 Large Platelets Not Reportable 09/14/20 12:28 Giant Platelets Not Reportable 09/14/20 12:28 Platelet Satelliting Not Reportable 09/14/20 12:28 Plt Morphology Comment Not Reportable 09/14/20 12:28 RBC Morphology Not Reportable 09/14/20 12:28 Dimorphic RBCs Not Reportable 09/14/20 12:28 Polychromasia Not Reportable 09/14/20 12:28 Hypochromasia Not Reportable 09/14/20 12:28 Poikilocytosis Not Reportable 09/14/20 12:28 Anisocytosis 1+ 09/14/20 12:28 Microcytosis Not Reportable 09/14/20 12:28 Macrocytosis Not Reportable 09/14/20 12:28 Spherocytes Not Reportable 09/14/20 12:28 Pappenheimer Bodies Not Reportable 09/14/20 12:28 Sickle Cells Not Reportable 09/14/20 12:28 Target Cells Not Reportable 09/14/20 12:28 Tear Drop Cells Not Reportable 09/14/20 12:28 Ovalocytes Not Reportable 09/14/20 12:28 Helmet Cells Not Reportable 09/14/20 12:28 Cee-[place] Bodies Not Reportable 09/14/20 12:28 [place] Rings Not Reportable 09/14/20 12:28 Maggi Cells Not Reportable 09/14/20 12:28 Bite Cells Not Reportable 09/14/20 12:28 Crenated Cell Not Reportable 09/14/20 12:28 Elliptocytes Not Reportable 09/14/20 12:28 Acanthocytes (Spur) Not Reportable 09/14/20 12:28 Rouleaux Not Reportable 09/14/20 12:28 Hemoglobin C Crystals Not Reportable 09/14/20 12:28 Schistocytes Not Reportable 09/14/20 12:28 Malaria parasites Not Reportable 09/14/20 12:28 Juan Antonio Bodies Not Reportable 09/14/20 12:28 Hem Pathologist Commnt No 09/14/20 12:28 Sodium 144 mmol/L (137-145) 09/15/20 06:46 Potassium 4.4 mmol/L (3.6-5.0) 09/15/20 06:46 Chloride 110.5 mmol/L (98-107) H 09/15/20 06:46 Carbon Dioxide 18 mmol/L (22-30) L 09/15/20 06:46 Anion Gap 20 mmol/L 09/15/20 06:46 BUN 71 mg/dL (9-20) H 09/15/20 06:46 Creatinine 2.0 mg/dL (0.8-1.3) H 09/15/20 06:46 Estimated GFR 39 ml/min 09/15/20 06:46 BUN/Creatinine Ratio 36 % 09/15/20 06:46 Glucose 119 mg/dL (75-100) H 09/15/20 06:46 Hemoglobin A1c 5.4 % (4-6) 09/14/20 12:28 Lactic Acid 4.00 mmol/L (0.7-2.0) H* 09/14/20 18:31 Calcium 8.1 mg/dL (8.4-10.2) L 09/15/20 06:46 Total Bilirubin 0.50 mg/dL (0.1-1.2) 09/15/20 06:46 AST 31 units/L (5-40) 09/15/20 06:46 ALT 21 units/L (7-56) 09/15/20 06:46 Alkaline Phosphatase 92 units/L (35-129) 09/15/20 06:46 Total Protein 5.0 g/dL (6.3-8.2) L 09/15/20 06:46 Albumin 1.9 g/dL (3.9-5) L 09/15/20 06:46 Albumin/Globulin Ratio 0.6 % 09/15/20 06:46 Urine Color Martha (Yellow) 09/14/20 Unknown Urine Turbidity Cloudy (Clear) 09/14/20 Unknown Urine pH 5.0 (5.0-7.0) 09/14/20 Unknown Ur Specific [place] 1.019 (1.003-1.030) 09/14/20 Unknown Urine Protein 100 mg/dl mg/dL (Negative) 09/14/20 Unknown Urine Glucose (UA) 50 mg/dL (Negative) 09/14/20 Unknown Urine Ketones Tr mg/dL (Negative) 09/14/20 Unknown Urine Blood Lg (Negative) 09/14/20 Unknown Urine Nitrite Neg (Negative) 09/14/20 Unknown Urine Bilirubin Neg (Negative) 09/14/20 Unknown Urine Urobilinogen < 2.0 mg/dL (<2.0) 09/14/20 Unknown Ur Leukocyte Esterase Tr (Negative) 09/14/20 Unknown Urine WBC (Auto) < 1.0 /HPF (0.0-6.0) 09/14/20 Unknown Urine RBC (Auto) < 1.0 /HPF (0.0-6.0) 09/14/20 Unknown U Epithel Cells (Auto) 3.0 /HPF (0-13.0) 09/14/20 Unknown Microbiology: Microbiology 09/14/20 18:31 Peripheral/Venous Blood Culture - Preliminary Culture in Progress 09/14/20 18:31 Peripheral/Venous Blood Culture - Preliminary Culture in Progress Active Medications - Current Medications Current Medications: Generic Name Dose Route Start Last Admin Trade Name Freq PRN Reason Stop Dose Admin Acetaminophen 650 mg 09/14/20 22:00 Acetaminophen 325 Mg Tab PO Q4H PRN Pain MILD(1-3)/Fever >100.5/GUY Donepezil HCl 10 mg 09/14/20 22:00 09/15/20 00:57 Donepezil 10 Mg Tab PO Not Given QDAY JEVON Famotidine 20 mg 09/14/20 22:00 09/14/20 23:16 Famotidine 20 Mg/2 Ml Inj IV 20 mg QAM JEVON Administration Heparin Sodium (Porcine) 5,000 unit 09/14/20 22:00 09/14/20 23:15 Heparin 5,000 Unit/1 Ml Vial SUB-Q 5,000 unit Q12HR JEVON Administration Hydromorphone HCl 0.5 mg 09/14/20 22:00 Hydromorphone 1 Mg/1 Ml Inj IV Q3H PRN Pain , Severe (7-10) Sodium Chloride 1,000 mls @ 150 mls/hr 09/14/20 16:45 09/14/20 19:35 Nacl 0.9% 1000 Ml IV 150 mls/hr DIRECT JEVON Administration Piperacillin Sod/Tazobactam Sod 2.25 gm in 50 mls @ 100 mls/hr 09/15/20 00:00 09/15/20 00:30 Zosyn/Ns 2.25 Gm/50ml IV 100 mls/hr Q8H JEVON Administration Protocol Metoclopramide HCl 5 mg 09/14/20 23:00 Metoclopramide 10 Mg/2 Ml Inj IV Q6H PRN Nausea And Vomiting Mirtazapine 15 mg 09/14/20 22:00 09/14/20 23:16 Mirtazapine 15 Mg Tab PO 15 mg QHS JEVON Administration Morphine Sulfate 2 mg 09/14/20 22:00 Morphine 2 Mg/1 Ml Inj IV Q4H PRN Pain, Moderate (4-6) Ondansetron HCl 4 mg 09/14/20 22:00 Ondansetron 4 Mg/2 Ml Inj IV Q8H PRN Nausea And Vomiting Sodium Chloride 10 ml 09/14/20 22:00 09/14/20 23:16 Sodium Chloride 0.9% 10 Ml Flush Syringe IV 10 ml BID JEVON Administration Sodium Chloride 10 ml 09/14/20 22:00 Sodium Chloride 0.9% 10 Ml Flush Syringe IV PRN PRN LINE FLUSH Tamsulosin HCl 0.4 mg 09/14/20 22:00 09/14/20 23:15 Tamsulosin 0.4 Mg Cap PO 0.4 mg QDAY JEVON Administration Trazodone HCl 50 mg 09/14/20 22:00 09/14/20 23:15 Trazodone 50 Mg Tab PO 50 mg QDAY JEVON Administration
[2020-09-15] MEDS: FAMOTIDINE 20 MG/2 ML INJ IV SCH (10:23)
[2020-09-15] MEDS: HEPARIN 5,000 UNIT/1 ML VIAL SUB-Q SCH ×2 (10:25→22:47)
[2020-09-15] MEDS: traZODone 50 MG TAB PO SCH (10:33)
[2020-09-15 10:36] LABS: Total Cells Counted 100
[2020-09-15 10:37] LABS: Band Neutrophils # (Manual) 1.2 K/mm3; Platelet Estimate Consistent w Auto; RBC Morphology Normal
--- NOTE | 2020-09-15 13:34 | Consultation ---
History of Present Illness - Reason for Consult Consult date: 09/15/20 acute renal failure, chronic renal failure - History of Present Illness The patient is a 84 YO male with history significant for HTN and Alzheimer's Dementia who presented to [facility] ED 09[facility]14 [place] for evaluation of hypotension. Patient is a very poor historian and there was no family member at the bedside. Upon arrival to ED his blood pressure is 137/51. Patient has no complaints. Patient denies chest pain, shortness breath, N, V, D, abdominal pain, fever, chills or syncope. Labs significant for Creat 2.2, BUN 69, Lactate 4 and Wbc 17. Nephrology was consulted for further evaluation and treatment of URMILA. Past History Past Medical History: other (See HPI.) Medications and Allergies Allergies Allergy/AdvReac Type Severity Reaction Status Date / Time No Known Allergies Allergy Unverified 09/02/20 09:20 Home Medications Medication Instructions Recorded Confirmed Last Taken Type Donepezil HCl [Donepezil HCl Odt] 10 mg PO QDAY 09/14/20 09/14/20 Unknown History Mirtazapine [Remeron 15mg TAB] 15 mg PO QHS 09/14/20 09/14/20 Unknown History Tamsulosin [Flomax] 0.4 mg PO QDAY 09/14/20 09/14/20 Unknown History Trazodone HCl 50 mg PO QDAY 09/14/20 09/14/20 Unknown History Active Meds: Active Medications Acetaminophen (Acetaminophen 325 Mg Tab) 650 mg PO Q4H PRN PRN Reason: Pain MILD(1-3)/Fever >100.5/GUY Donepezil HCl (Donepezil 10 Mg Tab) 10 mg PO QDAY [facility] Last Admin: 09/15/20 00:57 Dose: Not Given Documented by: Famotidine (Famotidine 20 Mg/2 Ml Inj) 20 mg IV QAM [facility] Last Admin: 09/14/20 23:16 Dose: 20 mg Documented by: Heparin Sodium (Porcine) (Heparin 5,000 Unit/1 Ml Vial) 5,000 unit SUB-Q Q12HR [facility] Last Admin: 09/14/20 23:15 Dose: 5,000 unit Documented by: Hydromorphone HCl (Hydromorphone 1 Mg/1 Ml Inj) 0.5 mg IV Q3H PRN PRN Reason: Pain , Severe (7-10) Sodium Chloride (Nacl 0.9% 1000 Ml) 1,000 mls @ 150 mls/hr IV DIRECT [facility] Last Admin: 09/14/20 19:35 Dose: 150 mls/hr Documented by: Piperacillin Sod/Tazobactam Sod (Zosyn/Ns 2.25 Gm/50ml) 2.25 gm in 50 mls @ 100 mls/hr IV Q8H [facility]; Protocol Last Admin: 09/15/20 00:30 Dose: 100 mls/hr Documented by: Metoclopramide HCl (Metoclopramide 10 Mg/2 Ml Inj) 5 mg IV Q6H PRN PRN Reason: Nausea And Vomiting Mirtazapine (Mirtazapine 15 Mg Tab) 15 mg PO QHS [facility] Last Admin: 09/14/20 23:16 Dose: 15 mg Documented by: Morphine Sulfate (Morphine 2 Mg/1 Ml Inj) 2 mg IV Q4H PRN PRN Reason: Pain, Moderate (4-6) Ondansetron HCl (Ondansetron 4 Mg/2 Ml Inj) 4 mg IV Q8H PRN PRN Reason: Nausea And Vomiting Sodium Chloride (Sodium Chloride 0.9% 10 Ml Flush Syringe) 10 ml IV BID [facility] Last Admin: 09/14/20 23:16 Dose: 10 ml Documented by: Sodium Chloride (Sodium Chloride 0.9% 10 Ml Flush Syringe) 10 ml IV PRN PRN PRN Reason: LINE FLUSH Tamsulosin HCl (Tamsulosin 0.4 Mg Cap) 0.4 mg PO QDAY [facility] Last Admin: 09/14/20 23:15 Dose: 0.4 mg Documented by: Trazodone HCl (Trazodone 50 Mg Tab) 50 mg PO QDAY [facility] Last Admin: 09/14/20 23:15 Dose: 50 mg Documented by: Review of Systems ROS unobtainable: due to mental status Exam - Vital Signs Vital signs: Vital Signs BP Pulse Ox 137/51 100 09/14/20 11:54 09/14/20 11:54 Results - Lab Results 09/15/20 06:46 09/15/20 06:46 Most recent lab results Calcium 8.1 mg/dL (8.4-10.2) L 09/15/20 06:46 Assessment and Plan 1. Acute kidney injury: Vasomotor URMILA in the setting of volume depletion and hypotension. CT abdomen negative for hydro. Urine studies ordered. Baseline renal function is unknown. Most likely background CKD. Monitor renal function. Creatinine level is slightly better today. Avoid nephrotoxic agents. Meds dosage based on GFR. 2. FEN: Metabolic acidosis, monitor. Monitor lytes. 3. SIRS (systemic inflammatory response syndrome): Patient has high white count and elevated lactic acid. IV fluids and IV antibiotics. Follow cultures. 4. Colitis: Etiology unclear. On IV Zosyn. GI consult requested. Follow stool culture and C. difficile results. 5. Hypertension: BP is controlled. Adjust meds as needed. Monitor. D/w his daughter over the phone. Subjective: Patient was seen and examined at the bedside. Examination: General appearance: well-developed, emaciated, appears stated age, not in distress HEENT: ATNC, pupils equal Neck: Trachea midline Respiratory: ctab Cardiology: S1S2, no murmur Gastrointestinal: soft, bowel sounds heard, not tender Integumentary: warm and dry Neurologic: alert, able to move extremities, confused Ext: no edema
[2020-09-15] MEDS: TAMSULOSIN 0.4 MG CAP PO SCH (20:26)
[2020-09-16] MEDS: PIPERACIL-TAZO 2.25 GM/50 ML 2.25 GM/50 ML BAG IV SCH ×3 (01:27→17:17)
[2020-09-16 05:49] LABS: Hematocrit 39.8 % (35.5-45.6); Hemoglobin 13.5 gm/dl (11.8-15.2); Mean Corpuscular HGB Conc 34 % (32-34); Mean Corpuscular Volume 96 fl (84-94); Platelet Count 159 K/mm3 (140-440); Red Blood Count 4.15 M/mm3 (3.65-5.03); Red Cell Distribution Width 14.4 % (13.2-15.2)
[2020-09-16 05:59] LABS: Calcium 8.4 mg/dL (8.4-10.2)
--- NOTE | 2020-09-16 06:50 | Consultation ---
DATE OF CONSULTATION: 09/15/2020 REFERRING PHYSICIAN: Bc Baeza MD INDICATIONS: 1. Colitis. 2. Abdominal pain. HISTORY OF PRESENT ILLNESS: The patient is an 84-year-old black male with history of end-stage renal disease, on dialysis, has been seen by GI for abdominal pain, colitis. The patient reportedly started having abdominal pain while at dialysis. The patient himself reports no significant abdominal pain, nausea, vomiting, or diarrhea. He reports no fevers or chills. The patient subsequently was brought to the Emergency Room where CT scan showed circumferential thickening of the colon and the patient was admitted and GI consulted. The patient denies any significant problems or complaints. PAST MEDICAL HISTORY: 1. End-stage renal disease. 2. Status post quadruple bypass. MEDICATIONS: Reviewed and updated in chart. ALLERGIES: No known drug allergies. SOCIAL HISTORY: No alcohol, tobacco or drug abuse. FAMILY HISTORY: ____ for colon cancer. REVIEW OF SYSTEMS: GENERAL: Positive weakness. HEENT: No visual complaints or tinnitus. PULMONARY: Denies shortness of breath, chest pain. GASTROINTESTINAL: Reports abdominal pain, now improved. All points of 13-point review of system otherwise negative. PHYSICAL EXAMINATION: VITAL SIGNS: Temperature of 97.8, pulse 89, respiration 18, blood pressure 121/65. GENERAL: Fairly nourished with no acute distress. HEENT: Pupils round and reactive. PULMONARY: Rhonchi. CARDIAC: Regular rate and rhythm. Normal S1, S2. ABDOMEN: Soft. SKIN: No obvious rashes. LABORATORY DATA: Pertinent for white count 15.2, hemoglobin and hematocrit of 13.6 and 40.4, platelet count of 155. Chem-7: Sodium ____, potassium 4.4, chloride 110, CO2 of 18, BUN and creatinine of 71 and 2. LFTs within normal limits. CT scan abdomen and pelvis with contrast on 09/14 showed severe circumferential wall thickening involving the entire colon with associated mucosal edema. There is also a small amount of ascites. ASSESSMENT: An 84-year-old male with history of end-stage renal disease, now presents with some abdominal pain with noted increased white cell count and CT scan showing colitis. Possibility of infectious most likely versus inflammatory etiology including possible Clostridium difficile. PLAN: 1. We will review CT scan. 2. Agree with antibiotics including Cipro and Flagyl as ordered. 3. Stool cultures. 4. Antiemetics and pain medications per primary team. 5. No plans for colonoscopy or other aggressive invasive intervention at this time. 6. Okay to start clear liquid diet. 7. Will follow further recommendation based on progress. TID: [id number] RECEIPT: [id number] TARA/RADHA/RICHARDSON
[2020-09-16] MEDS: SODIUM BICARBONATE 75 MEQ in WATER FOR INJECTION (PF) 1,000 ML IV SCH (09:22)
[2020-09-16] MEDS: FAMOTIDINE 20 MG/2 ML INJ IV SCH (09:22)
[2020-09-16] MEDS: TAMSULOSIN 0.4 MG CAP PO SCH (09:23)
[2020-09-16] MEDS: HEPARIN 5,000 UNIT/1 ML VIAL SUB-Q SCH ×2 (09:23→22:07)
[2020-09-16] MEDS: traZODone 50 MG TAB PO SCH (09:23)
--- NOTE | 2020-09-16 12:02 | Progress Note ---
Assessment and Plan 1. Acute kidney injury: Vasomotor URMILA in the setting of volume depletion and hypotension. CT abdomen negative for hydro. Urine studies ordered. Baseline renal function is unknown. Most likely background CKD. Monitor renal function. Creatinine level is slowly improving. Avoid nephrotoxic agents. Meds dosage based on GFR. 2. FEN: Metabolic acidosis, bicarb drip, monitor. Monitor lytes. 3. SIRS (systemic inflammatory response syndrome): IV fluids and IV antibiotics. Follow cultures. 4. Colitis: Etiology unclear. On IV Zosyn. Seen by GI. Follow stool culture and C. difficile results. 5. Hypertension: BP is controlled. Adjust meds as needed. Monitor. Subjective: Patient was seen and examined at the bedside. Examination: General appearance: well-developed, emaciated, appears stated age, not in distress HEENT: ATNC, pupils equal Neck: Trachea midline Respiratory: ctab Cardiology: S1S2, no murmur Gastrointestinal: soft, bowel sounds heard, not tender Integumentary: warm and dry Neurologic: alert, able to move extremities, confused Ext: no edema Subjective Date of service: 09/16/20 Objective - Vital Signs Vital signs: Vital Signs - 12hr 09/16/20 09/16/20 09/16/20 01:02 03:41 04:28 Temperature 97.4 F L 97.5 F L Pulse Rate 90 114 H Respiratory 18 18 Rate Blood Pressure 119/75 109/59 O2 Sat by Pulse 96 96 100 Oximetry 09/16/20 07:42 Temperature 98.1 F Pulse Rate 87 Respiratory 16 Rate Blood Pressure 125/71 O2 Sat by Pulse 96 Oximetry - Lab 09/16/20 04:17 09/16/20 04:17 Most recent lab results Calcium 8.4 mg/dL (8.4-10.2) 09/16/20 04:17 Medications & Allergies - Medications Allergies/Adverse Reactions: Allergies No Known Allergies Allergy (Unverified 09/02/20 09:20) Home Medications: Home Medications Medication Instructions Recorded Confirmed Last Taken Type Donepezil HCl [Donepezil HCl Odt] 10 mg PO QDAY 09/14/20 09/14/20 Unknown History Mirtazapine [Remeron 15mg TAB] 15 mg PO QHS 09/14/20 09/14/20 Unknown History Tamsulosin [Flomax] 0.4 mg PO QDAY 09/14/20 09/14/20 Unknown History Trazodone HCl 50 mg PO QDAY 09/14/20 09/14/20 Unknown History Active Medications: Generic Name Dose Route Start Last Admin Trade Name Freq PRN Reason Stop Dose Admin Acetaminophen 650 mg 09/14/20 22:00 Acetaminophen 325 Mg Tab PO Q4H PRN Pain MILD(1-3)/Fever >100.5/GUY Donepezil HCl 10 mg 09/14/20 22:00 09/15/20 10:26 Donepezil 10 Mg Tab PO 10 mg QDAY JEVON Administration Famotidine 20 mg 09/14/20 22:00 09/16/20 09:22 Famotidine 20 Mg/2 Ml Inj IV 20 mg QAM JEVON Administration Heparin Sodium (Porcine) 5,000 unit 09/14/20 22:00 09/16/20 09:23 Heparin 5,000 Unit/1 Ml Vial SUB-Q 5,000 unit Q12HR JEVON Administration Hydromorphone HCl 0.5 mg 09/14/20 22:00 Hydromorphone 1 Mg/1 Ml Inj IV Q3H PRN Pain , Severe (7-10) Piperacillin Sod/Tazobactam Sod 2.25 gm in 50 mls @ 100 mls/hr 09/15/20 00:00 09/16/20 09:21 Zosyn/Ns 2.25 Gm/50ml IV 100 mls/hr Q8H JEVON Administration Protocol Sodium Bicarbonate 75 meq/ 1,075 mls @ 75 mls/hr 09/16/20 09:00 09/16/20 09:22 Sterile Water IV 75 mls/hr DIRECT JEVON Administration Metoclopramide HCl 5 mg 09/14/20 23:00 Metoclopramide 10 Mg/2 Ml Inj IV Q6H PRN Nausea And Vomiting Mirtazapine 15 mg 09/16/20 22:00 Mirtazapine 15 Mg Tab PO QHS JEVON Morphine Sulfate 2 mg 09/14/20 22:00 Morphine 2 Mg/1 Ml Inj IV Q4H PRN Pain, Moderate (4-6) Ondansetron HCl 4 mg 09/14/20 22:00 Ondansetron 4 Mg/2 Ml Inj IV Q8H PRN Nausea And Vomiting Sodium Chloride 10 ml 09/14/20 22:00 09/16/20 11:04 Sodium Chloride 0.9% 10 Ml Flush Syringe IV Not Given BID JEVON Sodium Chloride 10 ml 09/14/20 22:00 Sodium Chloride 0.9% 10 Ml Flush Syringe IV PRN PRN LINE FLUSH Tamsulosin HCl 0.4 mg 09/14/20 22:00 09/16/20 09:23 Tamsulosin 0.4 Mg Cap PO 0.4 mg QDAY JEVON Administration Trazodone HCl 50 mg 09/14/20 22:00 09/16/20 09:23 Trazodone 50 Mg Tab PO 50 mg QDAY JEVON Administration
--- NOTE | 2020-09-16 13:21 | Progress Note ---
Assessment and Plan Assessment and plan: (1) SIRS (systemic inflammatory response syndrome) Current Visit: Yes Status: Acute Plan to address problem: Patient has high white count and elevated lactic acid IV fluids and IV antibiotics for now (2) Colitis Current Visit: Yes Status: Acute Plan to address problem: Etiology unclear High white count Patient started on IV Zosyn GI consult requested To samples for culture sensitivity and C. 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 Nephrology and GI consulted, Continue iv Zosyn creatinine improved 2.0 today from 2.2 yesterday 09/16/20 Patient with acute colitis, acute kidney injury. He is followed by GI and nephrology. Cr 1.9, very slight improvement History Interval history: Patient sent in for hypotension, found to have colitis and URMILA Hospitalist Physical - Physical exam Narrative exam: Gen: Not in acute distress, lying in bed HEENT: Normocephalic, atraumatic Neck : supple, no JVD Heart:S1 and S2 reg, no murmurs, rubs or gallop Lungs: clear to auscultation bilaterally, no wheeze Abd: Soft , mild tenderness, non distended, normal bowel sounds Ext: No edema, no clubbing, no cyanosis Neuro: Awake, alert, - Constitutional Vitals: Temp Pulse Resp BP Pulse Ox 98.1 F 78 16 124/70 98 09/16/20 12:24 09/16/20 12:24 09/16/20 12:24 09/16/20 12:24 09/16/20 12:24 General appearance: Present: no acute distress Results - Labs CBC & Chem 7: 09/16/20 04:17 09/16/20 04:17 Labs: Laboratory Last Values WBC 16.5 K/mm3 (4.5-11.0) H 09/16/20 04:17 RBC 4.15 M/mm3 (3.65-5.03) 09/16/20 04:17 Hgb 13.5 gm/dl (11.8-15.2) 09/16/20 04:17 Hct 39.8 % (35.5-45.6) 09/16/20 04:17 MCV 96 fl (84-94) H 09/16/20 04:17 MCH 33 pg (28-32) H 09/16/20 04:17 MCHC 34 % (32-34) 09/16/20 04:17 RDW 14.4 % (13.2-15.2) 09/16/20 04:17 Plt Count 159 K/mm3 (140-440) 09/16/20 04:17 Add Manual Diff Complete 09/15/20 06:46 Total Counted 100 09/15/20 06:46 Seg Neutrophils % Highway Maintenance Supervisor 09/15/20 06:46 Seg Neuts % (Manual) 90.0 % (40.0-70.0) H 09/15/20 06:46 Band Neutrophils % 8.0 % 09/15/20 06:46 Lymphocytes % (Manual) 1.0 % (13.4-35.0) L 09/15/20 06:46 Monocytes % (Manual) 1.0 % (0.0-7.3) 09/14/20 12:28 Metamyelocytes % 1.0 % 09/15/20 06:46 Nucleated RBC % 1.0 % (0.0-0.9) H 09/15/20 06:46 Seg Neutrophils # Man 13.7 K/mm3 (1.8-7.7) H 09/15/20 06:46 Band Neutrophils # 1.2 K/mm3 09/15/20 06:46 Lymphocytes # (Manual) 0.2 K/mm3 (1.2-5.4) L 09/15/20 06:46 Abs React Lymphs (Man) 0.0 K/mm3 09/15/20 06:46 Monocytes # (Manual) 0.0 K/mm3 (0.0-0.8) 09/15/20 06:46 Eosinophils # (Manual) 0.0 K/mm3 (0.0-0.4) 09/15/20 06:46 Basophils # (Manual) 0.0 K/mm3 (0.0-0.1) 09/15/20 06:46 Metamyelocytes # 0.2 K/mm3 09/15/20 06:46 Myelocytes # 0.0 K/mm3 09/15/20 06:46 Promyelocytes # 0.0 K/mm3 09/15/20 06:46 Blast Cells # 0.0 K/mm3 09/15/20 06:46 WBC Morphology Not Reportable 09/15/20 06:46 Hypersegmented Neuts Not Reportable 09/15/20 06:46 Hyposegmented Neuts Not Reportable 09/15/20 06:46 Hypogranular Neuts Not Reportable 09/15/20 06:46 Smudge Cells Not Reportable 09/15/20 06:46 Toxic Granulation Not Reportable 09/15/20 06:46 Toxic Vacuolation Not Reportable 09/15/20 06:46 Dohle Bodies Not Reportable 09/15/20 06:46 Pelger-Huet Anomaly Not Reportable 09/15/20 06:46 Liliana Rods Not Reportable 09/15/20 06:46 Platelet Estimate Consistent w auto 09/15/20 06:46 Clumped Platelets Not Reportable 09/15/20 06:46 Plt Clumps, EDTA Not Reportable 09/15/20 06:46 Large Platelets Not Reportable 09/15/20 06:46 Giant Platelets Not Reportable 09/15/20 06:46 Platelet Satelliting Not Reportable 09/15/20 06:46 Plt Morphology Comment Not Reportable 09/15/20 06:46 RBC Morphology Normal 09/15/20 06:46 Dimorphic RBCs Not Reportable 09/15/20 06:46 Polychromasia Not Reportable 09/15/20 06:46 Hypochromasia Not Reportable 09/15/20 06:46 Poikilocytosis Not Reportable 09/15/20 06:46 Anisocytosis Not Reportable 09/15/20 06:46 Microcytosis Not Reportable 09/15/20 06:46 Macrocytosis Not Reportable 09/15/20 06:46 Spherocytes Not Reportable 09/15/20 06:46 Pappenheimer Bodies Not Reportable 09/15/20 06:46 Sickle Cells Not Reportable 09/15/20 06:46 Target Cells Not Reportable 09/15/20 06:46 Tear Drop Cells Not Reportable 09/15/20 06:46 Ovalocytes Not Reportable 09/15/20 06:46 Helmet Cells Not Reportable 09/15/20 06:46 [place] Bodies Not Reportable 09/15/20 06:46 [place] Rings Not Reportable 09/15/20 06:46 Maggi Cells Not Reportable 09/15/20 06:46 Bite Cells Not Reportable 09/15/20 06:46 Crenated Cell Not Reportable 09/15/20 06:46 Elliptocytes Not Reportable 09/15/20 06:46 Acanthocytes (Spur) Not Reportable 09/15/20 06:46 Rouleaux Not Reportable 09/15/20 06:46 Hemoglobin C Crystals Not Reportable 09/15/20 06:46 Schistocytes Not Reportable 09/15/20 06:46 Malaria parasites Not Reportable 09/15/20 06:46 Juan Antonio Bodies Not Reportable 09/15/20 06:46 Hem Pathologist Commnt No 09/15/20 06:46 Sodium 146 mmol/L (137-145) H 09/16/20 04:17 Potassium 3.9 mmol/L (3.6-5.0) 09/16/20 04:17 Chloride 112.2 mmol/L (98-107) H 09/16/20 04:17 Carbon Dioxide 18 mmol/L (22-30) L 09/16/20 04:17 Anion Gap 20 mmol/L 09/16/20 04:17 BUN 72 mg/dL (9-20) H 09/16/20 04:17 Creatinine 1.9 mg/dL (0.8-1.3) H 09/16/20 04:17 Estimated GFR 41 ml/min 09/16/20 04:17 BUN/Creatinine Ratio 38 % 09/16/20 04:17 Glucose 105 mg/dL (75-100) H 09/16/20 04:17 POC Glucose 114 mg/dL (70-105) H 09/16/20 07:40 Hemoglobin A1c 5.4 % (4-6) 09/14/20 12:28 Lactic Acid 4.00 mmol/L (0.7-2.0) H* 09/14/20 18:31 Calcium 8.4 mg/dL (8.4-10.2) 09/16/20 04:17 Total Bilirubin 0.50 mg/dL (0.1-1.2) 09/15/20 06:46 AST 31 units/L (5-40) 09/15/20 06:46 ALT 21 units/L (7-56) 09/15/20 06:46 Alkaline Phosphatase 92 units/L (35-129) 09/15/20 06:46 Total Protein 5.0 g/dL (6.3-8.2) L 09/15/20 06:46 Albumin 1.9 g/dL (3.9-5) L 09/15/20 06:46 Albumin/Globulin Ratio 0.6 % 09/15/20 06:46 Urine Color Martha (Yellow) 09/14/20 Unknown Urine Turbidity Cloudy (Clear) 09/14/20 Unknown Urine pH 5.0 (5.0-7.0) 09/14/20 Unknown Ur Specific [place] 1.019 (1.003-1.030) 09/14/20 Unknown Urine Protein 100 mg/dl mg/dL (Negative) 09/14/20 Unknown Urine Glucose (UA) 50 mg/dL (Negative) 09/14/20 Unknown Urine Ketones Tr mg/dL (Negative) 09/14/20 Unknown Urine Blood Lg (Negative) 09/14/20 Unknown Urine Nitrite Neg (Negative) 09/14/20 Unknown Urine Bilirubin Neg (Negative) 09/14/20 Unknown Urine Urobilinogen < 2.0 mg/dL (<2.0) 09/14/20 Unknown Ur Leukocyte Esterase Tr (Negative) 09/14/20 Unknown Urine WBC (Auto) < 1.0 /HPF (0.0-6.0) 09/14/20 Unknown Urine RBC (Auto) < 1.0 /HPF (0.0-6.0) 09/14/20 Unknown U Epithel Cells (Auto) 3.0 /HPF (0-13.0) 09/14/20 Unknown Microbiology: Microbiology 09/14/20 18:31 Peripheral/Venous Blood Culture - Preliminary NO GROWTH AFTER 24 HOURS 09/14/20 18:31 Peripheral/Venous Blood Culture - Preliminary NO GROWTH AFTER 24 HOURS [place]/IV: Voiding Method Condom Catheter Active Medications - Current Medications Current Medications: Generic Name Dose Route Start Last Admin Trade Name Freq PRN Reason Stop Dose Admin Acetaminophen 650 mg 09/14/20 22:00 Acetaminophen 325 Mg Tab PO Q4H PRN Pain MILD(1-3)/Fever >100.5/GUY Donepezil HCl 10 mg 09/14/20 22:00 09/15/20 10:26 Donepezil 10 Mg Tab PO 10 mg QDAY JEVON Administration Famotidine 20 mg 09/14/20 22:00 09/16/20 09:22 Famotidine 20 Mg/2 Ml Inj IV 20 mg QAM JEVON Administration Heparin Sodium (Porcine) 5,000 unit 09/14/20 22:00 09/16/20 09:23 Heparin 5,000 Unit/1 Ml Vial SUB-Q 5,000 unit Q12HR JEVON Administration Hydromorphone HCl 0.5 mg 09/14/20 22:00 Hydromorphone 1 Mg/1 Ml Inj IV Q3H PRN Pain , Severe (7-10) Piperacillin Sod/Tazobactam Sod 2.25 gm in 50 mls @ 100 mls/hr 09/15/20 00:00 09/16/20 09:21 Zosyn/Ns 2.25 Gm/50ml IV 100 mls/hr Q8H JEVON Administration Protocol Sodium Bicarbonate 75 meq/ 1,075 mls @ 75 mls/hr 09/16/20 09:00 09/16/20 09:22 Sterile Water IV 75 mls/hr DIRECT JEVON Administration Metoclopramide HCl 5 mg 09/14/20 23:00 Metoclopramide 10 Mg/2 Ml Inj IV Q6H PRN Nausea And Vomiting Mirtazapine 15 mg 09/16/20 22:00 Mirtazapine 15 Mg Tab PO QHS JEVON Morphine Sulfate 2 mg 09/14/20 22:00 Morphine 2 Mg/1 Ml Inj IV Q4H PRN Pain, Moderate (4-6) Ondansetron HCl 4 mg 09/14/20 22:00 Ondansetron 4 Mg/2 Ml Inj IV Q8H PRN Nausea And Vomiting Sodium Chloride 10 ml 09/14/20 22:00 09/16/20 11:04 Sodium Chloride 0.9% 10 Ml Flush Syringe IV Not Given BID JEVON Sodium Chloride 10 ml 09/14/20 22:00 Sodium Chloride 0.9% 10 Ml Flush Syringe IV PRN PRN LINE FLUSH Tamsulosin HCl 0.4 mg 09/14/20 22:00 09/16/20 09:23 Tamsulosin 0.4 Mg Cap PO 0.4 mg QDAY JEVON Administration Trazodone HCl 50 mg 09/14/20 22:00 09/16/20 09:23 Trazodone 50 Mg Tab PO 50 mg QDAY JEVON Administration Nutrition/Malnutrition Assess - Dietary Evaluation Nutrition/Malnutrition Findings: Nutrition Notes Start: 09/15/20 13:27 Freq: Status: Active Protocol: Document 09/15/20 13:27 (Rec: 09/15/20 13:35 [id number]) Nutrition Notes Need for Assessment generated from: Low BMI Initial or Follow up Assessment Current Diagnosis Acute Kidney Injury, Hypertension Other Pertinent Diagnosis SIRS, colitis Current Diet no diet Labs/Tests BUN 71 Cr 2 Pertinent Medications remeron Height 5 ft 6 in Weight 48.761 kg [place] Body Weight (kg) 64.54 BMI 17.3 Weight Status Underweight Subjective/Other Information Screen for low BMI. Pt is confused. Pt waiting for GI consult. Pt lacks dentition. Burn Absent Trauma Absent GI Symptoms Diarrhea Current % PO Negligible Minimum of two criteria Yes Body Fat Depletion Mild depletion (non-severe) Muscle Mass Mild Depletion (non-severe) #1 Nutrition Diagnosis Malnutrition Etiology advanced age, colitis As Evidenced by Signs and Symptoms pt with muscle and fat wasting Is patient on ventilator? No Is Patient Ambulatory and/or Out of Bed No REE-([facility]-confined to bed) 1340.100 Calculation Used for Recommendations [facility] Additional Notes Protein: (1.2-1.5 g/kg) 58-73g Fluid: 1 ml/kcal Nutrition Intervention Change Diet Order: advance as able Add Supplement/Snack (indicate name/kcal Ensure Enlive BID when able /protein ) Provides kCal: 700 Provides Protein (gm) 40 Goal #1 Diet advancement Goal #2 Weight gain/maintenance Anticipated Discharge Needs: cardiac with ONS daily Follow-Up By: 09/17/20 Additional Comments F/u: diet advancement and intakes
[2020-09-16] MEDS: DONEPEZIL 10 MG TAB PO SCH (14:25)
--- NOTE | 2020-09-16 15:16 | Gastroenterology Progress Note ---
Assessment and Plan 1. GI: pt presents w/ colitis w/ noted increased wbc - awaiting c. diff and other stool labs - advance diet as tolerated - continue antibiotics - no plans to scope at this time - will follow Subjective Date of service: 09/16/20 Interval history: - no specific complaints overnight per staff Objective - Constitutional Vitals: Temp Pulse Resp BP Pulse Ox 98.1 F 78 16 124/70 98 09/16/20 12:24 09/16/20 12:24 09/16/20 12:24 09/16/20 12:24 09/16/20 12:24 General appearance: no acute distress - EENT Eyes: PERRL - Respiratory Respiratory: bilateral: CTA - Cardiovascular Rhythm: regular Heart Sounds: Present: S1 & S2 - Gastrointestinal General gastrointestinal: Present: soft, non-tender, non-distended - Labs CBC & Chem 7: 09/16/20 04:17 09/16/20 04:17 Labs: Laboratory Results - last 24 hr 09/16/20 09/16/20 09/16/20 04:17 04:17 07:40 WBC 16.5 H RBC 4.15 Hgb 13.5 Hct 39.8 MCV 96 H MCH 33 H MCHC 34 RDW 14.4 Plt Count 159 Sodium 146 H Potassium 3.9 Chloride 112.2 H Carbon Dioxide 18 L Anion Gap 20 BUN 72 H Creatinine 1.9 H Estimated GFR 41 BUN/Creatinine Ratio 38 Glucose 105 H POC Glucose 114 H Calcium 8.4
[2020-09-16] MEDS: MIRTAZAPINE 15 MG TAB PO SCH ×2 (20:05→22:07)
[2020-09-17] MEDS: PIPERACIL-TAZO 2.25 GM/50 ML 2.25 GM/50 ML BAG IV SCH ×2 (01:26→09:06)
[2020-09-17 08:46] LABS: Hematocrit 37.5 % (35.5-45.6); Hemoglobin 12.8 gm/dl (11.8-15.2); Mean Corpuscular HGB Conc 34 % (32-34); Mean Corpuscular Volume 93 fl (84-94); Platelet Count 170 K/mm3 (140-440); Red Blood Count 4.03 M/mm3 (3.65-5.03); Red Cell Distribution Width 14.4 % (13.2-15.2)
--- NOTE | 2020-09-17 08:58 | Progress Note ---
Assessment and Plan Assessment and plan: (1) SIRS (systemic inflammatory response syndrome) Current Visit: Yes Status: Acute Plan to address problem: Patient has high white count and elevated lactic acid IV fluids and IV antibiotics for now (2) Colitis Current Visit: Yes Status: Acute Plan to address problem: Etiology unclear High white count Patient started on IV Zosyn GI consult requested To samples for culture sensitivity and C. difficile restaurant (3) Acute kidney injury Current Visit: Yes Status: Acute Plan to address problem: IV fluids for now There is apparently on dialysis Will call the longterm to find out will order therapeutic specialist and resume hemodialysis if necessary Creatinine is low 2.2 and not consistent with end-stage renal disease (4) Hypertension Current Visit: Yes Status: Acute (5) Hypertension Current Visit: Yes Status: Chronic Qualifiers: Hypertension type: primary hypertension Qualified Code(s): I10 - Essential (primary) hypertension Plan to address problem: Antihypertensives on hold (6) DVT prophylaxis Current Visit: Yes Status: Acute Plan to address problem: On heparin and GI prophylaxis 09/15/20 Patient with acute colitis, acute kidney injury. Nephrology and GI consulted, Continue iv Zosyn creatinine improved 2.0 today from 2.2 yesterday 09/16/20 Patient with acute colitis, acute kidney injury. He is followed by GI and nephrology. Cr 1.9, very slight improvement 09/17/20 Patient diagnosed with c.diff colitis. Started on Flagyl, Cr 2.0 today History Interval history: Patient sent in for hypotension, found to have colitis and URMILA Called by Nurse that patient has C.diff Hospitalist Physical - Physical exam Narrative exam: Gen: Not in acute distress, lying in bed HEENT: Normocephalic, atraumatic Neck : supple, no JVD Heart:S1 and S2 reg, no murmurs, rubs or gallop Lungs: clear to auscultation bilaterally, no wheeze Abd: Soft , mild tenderness, non distended, normal bowel sounds Ext: No edema, no clubbing, no cyanosis Neuro: Awake, alert, - Constitutional Vitals: Temp Pulse Resp BP Pulse Ox 97.4 F L 54 L 18 134/69 90 09/17/20 07:49 09/17/20 07:49 09/17/20 07:49 09/17/20 07:49 09/17/20 07:49 General appearance: Present: no acute distress Results - Labs CBC & Chem 7: 09/17/20 08:10 09/17/20 08:10 Labs: Laboratory Last Values WBC 18.7 K/mm3 (4.5-11.0) H 09/17/20 08:10 RBC 4.03 M/mm3 (3.65-5.03) 09/17/20 08:10 Hgb 12.8 gm/dl (11.8-15.2) 09/17/20 08:10 Hct 37.5 % (35.5-45.6) 09/17/20 08:10 MCV 93 fl (84-94) 09/17/20 08:10 MCH 32 pg (28-32) 09/17/20 08:10 MCHC 34 % (32-34) 09/17/20 08:10 RDW 14.4 % (13.2-15.2) 09/17/20 08:10 Plt Count 170 K/mm3 (140-440) 09/17/20 08:10 Add Manual Diff Complete 09/15/20 06:46 Total Counted 100 09/15/20 06:46 Seg Neutrophils % 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 09/15/20 06:46 Seg Neuts % (Manual) 90.0 % (40.0-70.0) H 09/15/20 06:46 Band Neutrophils % 8.0 % 09/15/20 06:46 Lymphocytes % (Manual) 1.0 % (13.4-35.0) L 09/15/20 06:46 Monocytes % (Manual) 1.0 % (0.0-7.3) 09/14/20 12:28 Metamyelocytes % 1.0 % 09/15/20 06:46 Nucleated RBC % 1.0 % (0.0-0.9) H 09/15/20 06:46 Seg Neutrophils # Man 13.7 K/mm3 (1.8-7.7) H 09/15/20 06:46 Band Neutrophils # 1.2 K/mm3 09/15/20 06:46 Lymphocytes # (Manual) 0.2 K/mm3 (1.2-5.4) L 09/15/20 06:46 Abs React Lymphs (Man) 0.0 K/mm3 09/15/20 06:46 Monocytes # (Manual) 0.0 K/mm3 (0.0-0.8) 09/15/20 06:46 Eosinophils # (Manual) 0.0 K/mm3 (0.0-0.4) 09/15/20 06:46 Basophils # (Manual) 0.0 K/mm3 (0.0-0.1) 09/15/20 06:46 Metamyelocytes # 0.2 K/mm3 09/15/20 06:46 Myelocytes # 0.0 K/mm3 09/15/20 06:46 Promyelocytes # 0.0 K/mm3 09/15/20 06:46 Blast Cells # 0.0 K/mm3 09/15/20 06:46 WBC Morphology Not Reportable 09/15/20 06:46 Hypersegmented Neuts Not Reportable 09/15/20 06:46 Hyposegmented Neuts Not Reportable 09/15/20 06:46 Hypogranular Neuts Not Reportable 09/15/20 06:46 Smudge Cells Not Reportable 09/15/20 06:46 Toxic Granulation Not Reportable 09/15/20 06:46 Toxic Vacuolation Not Reportable 09/15/20 06:46 Dohle Bodies Not Reportable 09/15/20 06:46 Pelger-Huet Anomaly Not Reportable 09/15/20 06:46 Liliana Rods Not Reportable 09/15/20 06:46 Platelet Estimate Consistent w auto 09/15/20 06:46 Clumped Platelets Not Reportable 09/15/20 06:46 Plt Clumps, EDTA Not Reportable 09/15/20 06:46 Large Platelets Not Reportable 09/15/20 06:46 Giant Platelets Not Reportable 09/15/20 06:46 Platelet Satelliting Not Reportable 09/15/20 06:46 Plt Morphology Comment Not Reportable 09/15/20 06:46 RBC Morphology Normal 09/15/20 06:46 Dimorphic RBCs Not Reportable 09/15/20 06:46 Polychromasia Not Reportable 09/15/20 06:46 Hypochromasia Not Reportable 09/15/20 06:46 Poikilocytosis Not Reportable 09/15/20 06:46 Anisocytosis Not Reportable 09/15/20 06:46 Microcytosis Not Reportable 09/15/20 06:46 Macrocytosis Not Reportable 09/15/20 06:46 Spherocytes Not Reportable 09/15/20 06:46 Pappenheimer Bodies Not Reportable 09/15/20 06:46 Sickle Cells Not Reportable 09/15/20 06:46 Target Cells Not Reportable 09/15/20 06:46 Tear Drop Cells Not Reportable 09/15/20 06:46 Ovalocytes Not Reportable 09/15/20 06:46 Helmet Cells Not Reportable 09/15/20 06:46 Cee-[place] Bodies Not Reportable 09/15/20 06:46 [place] Rings Not Reportable 09/15/20 06:46 Maggi Cells Not Reportable 09/15/20 06:46 Bite Cells Not Reportable 09/15/20 06:46 Crenated Cell Not Reportable 09/15/20 06:46 Elliptocytes Not Reportable 09/15/20 06:46 Acanthocytes (Spur) Not Reportable 09/15/20 06:46 Rouleaux Not Reportable 09/15/20 06:46 Hemoglobin C Crystals Not Reportable 09/15/20 06:46 Schistocytes Not Reportable 09/15/20 06:46 Malaria parasites Not Reportable 09/15/20 06:46 Juan Antonio Bodies Not Reportable 09/15/20 06:46 Hem Pathologist Commnt No 09/15/20 06:46 Sodium 146 mmol/L (137-145) H 09/16/20 04:17 Potassium 3.9 mmol/L (3.6-5.0) 09/16/20 04:17 Chloride 112.2 mmol/L (98-107) H 09/16/20 04:17 Carbon Dioxide 18 mmol/L (22-30) L 09/16/20 04:17 Anion Gap 20 mmol/L 09/16/20 04:17 BUN 72 mg/dL (9-20) H 09/16/20 04:17 Creatinine 1.9 mg/dL (0.8-1.3) H 09/16/20 04:17 Estimated GFR 41 ml/min 09/16/20 04:17 BUN/Creatinine Ratio 38 % 09/16/20 04:17 Glucose 105 mg/dL (75-100) H 09/16/20 04:17 POC Glucose 114 mg/dL (70-105) H 09/16/20 07:40 Hemoglobin A1c 5.4 % (4-6) 09/14/20 12:28 Lactic Acid 4.00 mmol/L (0.7-2.0) H* 09/14/20 18:31 Calcium 8.4 mg/dL (8.4-10.2) 09/16/20 04:17 Total Bilirubin 0.50 mg/dL (0.1-1.2) 09/15/20 06:46 AST 31 units/L (5-40) 09/15/20 06:46 ALT 21 units/L (7-56) 09/15/20 06:46 Alkaline Phosphatase 92 units/L (35-129) 09/15/20 06:46 Total Protein 5.0 g/dL (6.3-8.2) L 09/15/20 06:46 Albumin 1.9 g/dL (3.9-5) L 09/15/20 06:46 Albumin/Globulin Ratio 0.6 % 09/15/20 06:46 Urine Color Martha (Yellow) 09/14/20 Unknown Urine Turbidity Cloudy (Clear) 09/14/20 Unknown Urine pH 5.0 (5.0-7.0) 09/14/20 Unknown Ur Specific Miller 1.019 (1.003-1.030) 09/14/20 Unknown Urine Protein 100 mg/dl mg/dL (Negative) 09/14/20 Unknown Urine Glucose (UA) 50 mg/dL (Negative) 09/14/20 Unknown Urine Ketones Tr mg/dL (Negative) 09/14/20 Unknown Urine Blood Lg (Negative) 09/14/20 Unknown Urine Nitrite Neg (Negative) 09/14/20 Unknown Urine Bilirubin Neg (Negative) 09/14/20 Unknown Urine Urobilinogen < 2.0 mg/dL (<2.0) 09/14/20 Unknown Ur Leukocyte Esterase Tr (Negative) 09/14/20 Unknown Urine WBC (Auto) < 1.0 /HPF (0.0-6.0) 09/14/20 Unknown Urine RBC (Auto) < 1.0 /HPF (0.0-6.0) 09/14/20 Unknown U Epithel Cells (Auto) 3.0 /HPF (0-13.0) 09/14/20 Unknown Microbiology: Microbiology 09/14/20 18:31 Peripheral/Venous Blood Culture - Preliminary NO GROWTH AFTER 48 HOURS 09/14/20 18:31 Peripheral/Venous Blood Culture - Preliminary NO GROWTH AFTER 48 HOURS [place]/IV: Voiding Method Condom Catheter Active Medications - Current Medications Current Medications: Generic Name Dose Route Start Last Admin Trade Name Freq PRN Reason Stop Dose Admin Acetaminophen 650 mg 09/14/20 22:00 Acetaminophen 325 Mg Tab PO Q4H PRN Pain MILD(1-3)/Fever >100.5/GUY Donepezil HCl 10 mg 09/14/20 22:00 09/16/20 14:25 Donepezil 10 Mg Tab PO 10 mg QDAY JEVON Administration Famotidine 20 mg 09/14/20 22:00 09/16/20 09:22 Famotidine 20 Mg/2 Ml Inj IV 20 mg QAM JEVON Administration Heparin Sodium (Porcine) 5,000 unit 09/14/20 22:00 09/16/20 22:07 Heparin 5,000 Unit/1 Ml Vial SUB-Q 5,000 unit Q12HR JEVON Administration Hydromorphone HCl 0.5 mg 09/14/20 22:00 Hydromorphone 1 Mg/1 Ml Inj IV Q3H PRN Pain , Severe (7-10) Piperacillin Sod/Tazobactam Sod 2.25 gm in 50 mls @ 100 mls/hr 09/15/20 00:00 09/17/20 01:26 Zosyn/Ns 2.25 Gm/50ml IV 100 mls/hr Q8H JEVON Administration Protocol Sodium Bicarbonate 75 meq/ 1,075 mls @ 75 mls/hr 09/16/20 09:00 09/16/20 09:22 Sterile Water IV 75 mls/hr DIRECT JEVON Administration Metoclopramide HCl 5 mg 09/14/20 23:00 Metoclopramide 10 Mg/2 Ml Inj IV Q6H PRN Nausea And Vomiting Mirtazapine 15 mg 09/16/20 22:00 09/16/20 22:07 Mirtazapine 15 Mg Tab PO 15 mg QHS JEVON Administration Morphine Sulfate 2 mg 09/14/20 22:00 Morphine 2 Mg/1 Ml Inj IV Q4H PRN Pain, Moderate (4-6) Ondansetron HCl 4 mg 09/14/20 22:00 Ondansetron 4 Mg/2 Ml Inj IV Q8H PRN Nausea And Vomiting Sodium Chloride 10 ml 09/14/20 22:00 09/16/20 22:08 Sodium Chloride 0.9% 10 Ml Flush Syringe IV 10 ml BID JEVON Administration Sodium Chloride 10 ml 09/14/20 22:00 Sodium Chloride 0.9% 10 Ml Flush Syringe IV PRN PRN LINE FLUSH Tamsulosin HCl 0.4 mg 09/14/20 22:00 09/16/20 09:23 Tamsulosin 0.4 Mg Cap PO 0.4 mg QDAY JEVON Administration Trazodone HCl 50 mg 09/14/20 22:00 09/16/20 09:23 Trazodone 50 Mg Tab PO 50 mg QDAY JEVON Administration Nutrition/Malnutrition Assess - Dietary Evaluation Nutrition/Malnutrition Findings: Nutrition Notes Start: 09/15/20 13:27 Freq: Status: Active Protocol: Document 09/15/20 13:27 (Rec: 09/15/20 13:35 [id number]) Nutrition Notes Need for Assessment generated from: Low BMI Initial or Follow up Assessment Current Diagnosis Acute Kidney Injury, Hypertension Other Pertinent Diagnosis SIRS, colitis Current Diet no diet Labs/Tests BUN 71 Cr 2 Pertinent Medications remeron Height 5 ft 6 in Weight 48.761 kg Ada Body Weight (kg) 64.54 BMI 17.3 Weight Status Underweight Subjective/Other Information Screen for low BMI. Pt is confused. Pt waiting for GI consult. Pt lacks dentition. Burn Absent Trauma Absent GI Symptoms Diarrhea Current % PO Negligible Minimum of two criteria Yes Body Fat Depletion Mild depletion (non-severe) Muscle Mass Mild Depletion (non-severe) #1 Nutrition Diagnosis Malnutrition Etiology advanced age, colitis As Evidenced by Signs and Symptoms pt with muscle and fat wasting Is patient on ventilator? No Is Patient Ambulatory and/or Out of Bed No REE-([place]-St Jeor-confined to bed) 1340.100 Calculation [facility] Additional Notes Protein: (1.2-1.5 g/kg) 58-73g Fluid: 1 ml/kcal Nutrition Intervention Change Diet Order: advance as able Add Supplement/Snack (indicate name/kcal Ensure Enlive BID when able /protein ) Provides kCal: 700 Provides Protein (gm) 40 Goal #1 Diet advancement Goal #2 Weight gain/maintenance Anticipated Discharge Needs: cardiac with ONS daily Follow-Up By: 09/17/20 Additional Comments F/u: diet advancement and intakes
[2020-09-17] MEDS: SODIUM BICARBONATE 75 MEQ in WATER FOR INJECTION (PF) 1,000 ML IV SCH (09:00)
[2020-09-17 09:05] LABS: Calcium 8.3 mg/dL (8.4-10.2)
[2020-09-17] MEDS: FAMOTIDINE 20 MG/2 ML INJ IV SCH (10:12)
[2020-09-17] MEDS: traZODone 50 MG TAB PO SCH (10:13)
[2020-09-17] MEDS: TAMSULOSIN 0.4 MG CAP PO SCH (10:13)
[2020-09-17] MEDS: HEPARIN 5,000 UNIT/1 ML VIAL SUB-Q SCH ×2 (10:20→21:54)
[2020-09-17] MEDS: metroNIDAZOLE 500 MG TAB PO SCH ×3 (10:42→21:54)
--- NOTE | 2020-09-17 13:57 | Consultation ---
History of Present Illness - Reason for Consult Consult date: 09/17/20 C.difficile colitis Requesting physician: TIN LABOY - History of Present Illness The patient is a 84-year-old male with CKD, hypertension, dementia, [place] [facility] resident was admitted to the hospital due to tachycardia. CT scan revealed evidence of pancolitis. C. difficile has come back positive. Infectious diseases was consulted for additional evaluation. Labs consistent with sepsis. Patient is a poor historian. Review of Systems: Limited due to dementia Past History Past Medical History: other (See HPI.) Medications and Allergies Allergies Allergy/AdvReac Type Severity Reaction Status Date / Time No Known Allergies Allergy Unverified 09/02/20 09:20 Home Medications Medication Instructions Recorded Confirmed Last Taken Type Donepezil HCl [Donepezil HCl Odt] 10 mg PO QDAY 09/14/20 09/14/20 Unknown His tory Mirtazapine [Remeron 15mg TAB] 15 mg PO QHS 09/14/20 09/14/20 Unknown History Tamsulosin [Flomax] 0.4 mg PO QDAY 09/14/20 09/14/20 Unknown History Trazodone HCl 50 mg PO QDAY 09/14/20 09/14/20 Unknown History Active Meds: Active Medications Acetaminophen (Acetaminophen 325 Mg Tab) 650 mg PO Q4H PRN PRN Reason: Pain MILD(1-3)/Fever >100.5/GUY Donepezil HCl (Donepezil 10 Mg Tab) 10 mg PO QDAY [facility] Last Admin: 09/16/20 14:25 Dose: 10 mg Documented by: Famotidine (Famotidine 20 Mg/2 Ml Inj) 20 mg IV QAM [facility] Last Admin: 09/17/20 10:12 Dose: 20 mg Documented by: Heparin Sodium (Porcine) (Heparin 5,000 Unit/1 Ml Vial) 5,000 unit SUB-Q Q12HR [facility] Last Admin: 09/17/20 10:20 Dose: 5,000 unit Documented by: Hydromorphone HCl (Hydromorphone 1 Mg/1 Ml Inj) 0.5 mg IV Q3H PRN PRN Reason: Pain , Severe (7-10) Sodium Bicarbonate 75 meq/ (Sterile Water) 1,075 mls @ 75 mls/hr IV DIRECT [facility] Last Admin: 09/17/20 09:00 Dose: 75 mls/hr Documented by: Metoclopramide HCl (Metoclopramide 10 Mg/2 Ml Inj) 5 mg IV Q6H PRN PRN Reason: Nausea And Vomiting Metronidazole (Metronidazole 500 Mg Tab) 500 mg PO Q8HR [facility]; Protocol Last Admin: 09/17/20 10:42 Dose: 500 mg Documented by: Mirtazapine (Mirtazapine 15 Mg Tab) 15 mg PO QHS [facility] Last Admin: 09/16/20 22:07 Dose: 15 mg Documented by: Morphine Sulfate (Morphine 2 Mg/1 Ml Inj) 2 mg IV Q4H PRN PRN Reason: Pain, Moderate (4-6) Ondansetron HCl (Ondansetron 4 Mg/2 Ml Inj) 4 mg IV Q8H PRN PRN Reason: Nausea And Vomiting Sodium Chloride (Sodium Chloride 0.9% 10 Ml Flush Syringe) 10 ml IV BID [facility] Last Admin: 09/17/20 10:27 Dose: Not Given Documented by: Sodium Chloride (Sodium Chloride 0.9% 10 Ml Flush Syringe) 10 ml IV PRN PRN PRN Reason: LINE FLUSH Tamsulosin HCl (Tamsulosin 0.4 Mg Cap) 0.4 mg PO QDAY [facility] Last Admin: 09/17/20 10:13 Dose: 0.4 mg Documented by: Trazodone HCl (Trazodone 50 Mg Tab) 50 mg PO QDAY [facility] Last Admin: 09/17/20 10:13 Dose: 50 mg Documented by: Vancomycin HCl (Vancomycin 250 Mg/10 Ml Oral Liqd) 500 mg PO Q6HR [facility]; Protocol Physical Examination - Physical Exam Narrative exam: Physical Exam: Constitutional: Awake Head, Ears, Nose: Normocephalic, atraumatic. External ears, nose normal Eyes: Conjunctivae/corneas clear. No icterus. No ptosis. Neck: Supple, no meningeal signs Cardiovascular: S1, S2 + Respiratory: Good air entry, clear to auscultation bilaterally GI: Soft, non-tender; bowel sounds normal. No peritoneal signs Musculoskeletal: No pedal edema, no cyanosis. Skin: No rash or abscess Hem/Lymphatic: No palpable cervical or supraclavicular nodes. No lymphangitis Psych: No agitation Neurological: Awake, confused - Constitutional Vitals: Vital Signs Temp Pulse Resp BP Pulse Ox 98.4 F 54 L 18 96/52 90 09/17/20 11:08 09/17/20 07:49 09/17/20 11:08 09/17/20 11:08 09/17/20 07:49 Temperature -Last 24 Hours Temperature 98.4 F Temperature 97.4 F Temperature 97.5 F Temperature 98.3 F Temperature 97.8 F Temperature 98.2 F Results - Labs CBC & Chem 7: 09/17/20 08:10 09/17/20 08:10 Labs: Abnormal lab results 09/17/20 09/17/20 09/17/20 Range/Units 08:10 08:10 08:10 WBC 18.7 H (4.5-11.0) K/mm3 Sodium 148 H (137-145) mmol/L Chloride 113.8 H (98-107) mmol/L Carbon Dioxide 21 L (22-30) mmol/L BUN 70 H (9-20) mg/dL Creatinine 2.0 H (0.8-1.3) mg/dL Glucose 122 H (75-100) mg/dL Calcium 8.3 L (8.4-10.2) mg/dL Phosphorus 2.40 L (2.5-4.5) mg/dL Magnesium 3.00 H (1.7-2.3) mg/dL - Imaging and Cardiology Chest x-ray: report reviewed, image reviewed (no pneumonia seen) Assessment and Plan Cultures: 09/14/2020 blood culture: No growth 09/16/2020 C. difficile PCR: Positive A/P: 84-year-old male with CKD, hypertension, dementia, [place] [facility] resident was admitted to the hospital due to tachycardia and sepsis: #Severe sepsis secondary to severe C. difficile colitis #Acute kidney injury: Likely secondary to above Recs: -PO vancomycin 500 mg 4 times daily plus IV Flagyl 500 mg every 8h -Avoid other systemic antimicrobials due to risk of worsening C. difficile. Zosyn discontinued Say Montes MD, FACP [facility] O: [phone] F: [phone]
[2020-09-17] MEDS: DONEPEZIL 10 MG TAB PO SCH (14:25)
--- NOTE | 2020-09-17 16:25 | Gastroenterology Progress Note ---
Assessment and Plan 1. GI: pt w/ colitis now C. diff + - noted increase wbc though otherwsie stable - ID input noted, agree w/ Vanco/Flagyl -no indication for scope - continue clear liquid diet, advance based on progress - will follow Subjective Date of service: 09/17/20 Interval history: - pt C. diff +, no specific GI complaints overnight Objective - Constitutional Vitals: Temp Pulse Resp BP Pulse Ox 98.4 F 54 L 18 96/52 90 09/17/20 11:08 09/17/20 07:49 09/17/20 11:08 09/17/20 11:08 09/17/20 07:49 General appearance: no acute distress - EENT Eyes: PERRL - Respiratory Respiratory: bilateral: CTA - Cardiovascular Rhythm: regular Heart Sounds: Present: S1 & S2 - Gastrointestinal General gastrointestinal: Present: soft, non-tender, non-distended - Labs CBC & Chem 7: 09/17/20 08:10 09/17/20 08:10 Labs: Laboratory Results - last 24 hr 09/16/20 09/17/20 09/17/20 08:40 08:10 08:10 WBC 18.7 H RBC 4.03 Hgb 12.8 Hct 37.5 MCV 93 MCH 32 MCHC 34 RDW 14.4 Plt Count 170 Sodium 148 H Potassium 3.7 Chloride 113.8 H Carbon Dioxide 21 L Anion Gap 17 BUN 70 H Creatinine 2.0 H Estimated GFR 39 BUN/Creatinine Ratio 35 Glucose 122 H Calcium 8.3 L Phosphorus Magnesium C. difficile Tox (PCR) Positive 09/17/20 08:10 WBC RBC Hgb Hct MCV MCH MCHC RDW Plt Count Sodium Potassium Chloride Carbon Dioxide Anion Gap BUN Creatinine Estimated GFR BUN/Creatinine Ratio Glucose Calcium Phosphorus 2.40 L Magnesium 3.00 H C. difficile Tox (PCR)
[2020-09-17] MEDS: VANCOMYCIN 250 MG/10 ML ORAL LIQD PO SCH ×3 (16:59→23:00)
[2020-09-17] MEDS: MIRTAZAPINE 15 MG TAB PO SCH (21:54)
--- NOTE | 2020-09-17 22:33 | Progress Note ---
Assessment and Plan 1. Acute kidney injury: Vasomotor URMILA in the setting of volume depletion and hypotension. CT abdomen negative for hydro. Urine studies ordered. Baseline renal function is unknown. Most likely background CKD. Monitor renal function. Creatinine level is slowly improving. Avoid nephrotoxic agents. Meds dosage based on GFR. 2. FEN: Metabolic acidosis, bicarb drip, monitor. Hypernatremia, monitor. Monitor lytes. 3. Severe sepsis secondary to severe C. difficile colitis On Flagyl and Vancomycin. Followed by ID. 4. Hypertension: BP is controlled. Adjust meds as needed. Monitor. 5. Dementia. Subjective: Patient was seen and examined at the bedside. Examination: General appearance: well-developed, emaciated, appears stated age, not in distress HEENT: ATNC, pupils equal Neck: Trachea midline Respiratory: ctab Cardiology: S1S2, no murmur Gastrointestinal: soft, bowel sounds heard, not tender Integumentary: warm and dry Neurologic: alert, able to move extremities, confused Ext: no edema Subjective Date of service: 09/17/20 Objective - Vital Signs Vital signs: Vital Signs - 12hr 09/17/20 09/17/20 09/17/20 11:08 14:35 16:34 Temperature 98.4 F 98.0 F Pulse Rate 54 L Respiratory 18 18 Rate Blood Pressure 96/52 110/58 O2 Sat by Pulse 97 97 Oximetry - Lab 09/17/20 08:10 09/17/20 08:10 Most recent lab results Calcium 8.3 mg/dL (8.4-10.2) L 09/17/20 08:10 Phosphorus 2.40 mg/dL (2.5-4.5) L 09/17/20 08:10 Magnesium 3.00 mg/dL (1.7-2.3) H 09/17/20 08:10 Medications & Allergies - Medications Allergies/Adverse Reactions: Allergies No Known Allergies Allergy (Unverified 09/02/20 09:20) Home Medications: Home Medications Medication Instructions Recorded Confirmed Last Taken Type Donepezil HCl [Donepezil HCl Odt] 10 mg PO QDAY 09/14/20 09/14/20 Unknown History Mirtazapine [Remeron 15mg TAB] 15 mg PO QHS 09/14/20 09/14/20 Unknown History Tamsulosin [Flomax] 0.4 mg PO QDAY 09/14/20 09/14/20 Unknown History Trazodone HCl 50 mg PO QDAY 09/14/20 09/14/20 Unknown History Active Medications: Generic Name Dose Route Start Last Admin Trade Name Freq PRN Reason Stop Dose Admin Acetaminophen 650 mg 09/14/20 22:00 Acetaminophen 325 Mg Tab PO Q4H PRN Pain MILD(1-3)/Fever >100.5/GUY Donepezil HCl 10 mg 09/14/20 22:00 09/17/20 14:25 Donepezil 10 Mg Tab PO 10 mg QDAY JEVON Administration Famotidine 20 mg 09/14/20 22:00 09/17/20 10:12 Famotidine 20 Mg/2 Ml Inj IV 20 mg QAM JEVON Administration Heparin Sodium (Porcine) 5,000 unit 09/14/20 22:00 09/17/20 21:54 Heparin 5,000 Unit/1 Ml Vial SUB-Q 5,000 unit Q12HR JEVON Administration Hydromorphone HCl 0.5 mg 09/14/20 22:00 Hydromorphone 1 Mg/1 Ml Inj IV Q3H PRN Pain , Severe (7-10) Sodium Bicarbonate 75 meq/ 1,075 mls @ 75 mls/hr 09/16/20 09:00 09/17/20 09:00 Sterile Water IV 75 mls/hr DIRECT JEVON Administration Metoclopramide HCl 5 mg 09/14/20 23:00 Metoclopramide 10 Mg/2 Ml Inj IV Q6H PRN Nausea And Vomiting Metronidazole 500 mg 09/17/20 11:00 09/17/20 21:54 Metronidazole 500 Mg Tab PO 500 mg Q8HR JEVON Administration Protocol Mirtazapine 15 mg 09/16/20 22:00 09/17/20 21:54 Mirtazapine 15 Mg Tab PO 15 mg QHS JEVON Administration Morphine Sulfate 2 mg 09/14/20 22:00 Morphine 2 Mg/1 Ml Inj IV Q4H PRN Pain, Moderate (4-6) Ondansetron HCl 4 mg 09/14/20 22:00 Ondansetron 4 Mg/2 Ml Inj IV Q8H PRN Nausea And Vomiting Sodium Chloride 10 ml 09/14/20 22:00 09/17/20 22:03 Sodium Chloride 0.9% 10 Ml Flush Syringe IV 10 ml BID JEVON Administration Sodium Chloride 10 ml 09/14/20 22:00 Sodium Chloride 0.9% 10 Ml Flush Syringe IV PRN PRN LINE FLUSH Tamsulosin HCl 0.4 mg 09/14/20 22:00 09/17/20 10:13 Tamsulosin 0.4 Mg Cap PO 0.4 mg QDAY JEVON Administration Trazodone HCl 50 mg 09/14/20 22:00 09/17/20 10:13 Trazodone 50 Mg Tab PO 50 mg QDAY JEVON Administration Vancomycin HCl 500 mg 09/17/20 14:00 09/17/20 18:11 Vancomycin 250 Mg/10 Ml Oral Liqd PO 500 mg Q6HR JEVON Administration Protocol
[2020-09-18] MEDS: SODIUM BICARBONATE 75 MEQ in WATER FOR INJECTION (PF) 1,000 ML IV SCH ×2 (03:44→12:09)
[2020-09-18] MEDS: VANCOMYCIN 250 MG/10 ML ORAL LIQD PO SCH ×4 (05:18→23:50)
[2020-09-18] MEDS: metroNIDAZOLE 500 MG TAB PO SCH ×3 (05:18→23:11)
[2020-09-18 05:34] LABS: Hematocrit 36.5 % (35.5-45.6); Hemoglobin 12.5 gm/dl (11.8-15.2); Mean Corpuscular HGB Conc 34 % (32-34); Mean Corpuscular Volume 94 fl (84-94); Platelet Count 105 K/mm3 (140-440); Red Blood Count 3.88 M/mm3 (3.65-5.03); Red Cell Distribution Width 13.9 % (13.2-15.2)
[2020-09-18 05:50] LABS: Calcium 8.1 mg/dL (8.4-10.2)
[2020-09-18] MEDS ORDERED: POTASSIUM PHOSPHATE 30 MMOL in SODIUM CHLORIDE 0.9% 500 ML 500 ML IV ONE (07:16)
--- NOTE | 2020-09-18 08:43 | Progress Note ---
Assessment and Plan Assessment and plan: (1) SIRS (systemic inflammatory response syndrome) Current Visit: Yes Status: Acute Plan to address problem: Patient has high white count and elevated lactic acid IV fluids and IV antibiotics for now (2) Colitis Current Visit: Yes Status: Acute Plan to address problem: Etiology unclear High white count Patient started on IV Zosyn GI consult requested To samples for culture sensitivity and C. difficile restaurant (3) Acute kidney injury Current Visit: Yes Status: Acute Plan to address problem: IV fluids for now There is apparently on dialysis Will call the [facility] to find out will order correction officer city or county jail and resume hemodialysis if necessary Creatinine is low 2.2 and not consistent with end-stage renal disease (4) Hypertension Current Visit: Yes Status: Acute (5) Hypertension Current Visit: Yes Status: Chronic Qualifiers: Hypertension type: primary hypertension Qualified Code(s): I10 - Essential (primary) hypertension Plan to address problem: Antihypertensives on hold (6) DVT prophylaxis Current Visit: Yes Status: Acute Plan to address problem: On heparin and GI prophylaxis 09/15/20 Patient with acute colitis, acute kidney injury. Nephrology and GI consulted, Continue iv Zosyn creatinine improved 2.0 today from 2.2 yesterday 09/16/20 Patient with acute colitis, acute kidney injury. He is followed by GI and nephrology. Cr 1.9, very slight improvement 09/17/20 Patient diagnosed with c.diff colitis. Started on Flagyl, Cr 2.0 today 09/18/20 Patient with c.diff colitis and URMILA. Now on Vancomycin for c diff. ID Specialist, Nephrology and GI following. Cr improving 1.6 today. History Interval history: Patient sent in for hypotension, found to have c.diff colitis and URMILA No fever Hospitalist Physical - Physical exam Narrative exam: Gen: Not in acute distress, lying in bed HEENT: Normocephalic, atraumatic Neck : supple, no JVD Heart:S1 and S2 reg, no murmurs, rubs or gallop Lungs: clear to auscultation bilaterally, no wheeze Abd: Soft , mild tenderness, non distended, normal bowel sounds Ext: No edema, no clubbing, no cyanosis Neuro: Awake, alert, - Constitutional Vitals: Temp Pulse Resp BP Pulse Ox 97.7 F 75 18 144/71 95 09/18/20 07:54 09/18/20 07:54 09/18/20 07:54 09/18/20 07:54 09/18/20 07:54 General appearance: Present: no acute distress Results - Labs CBC & Chem 7: 09/18/20 04:07 09/18/20 04:07 Labs: Laboratory Last Values WBC 11.6 K/mm3 (4.5-11.0) H 09/18/20 04:07 RBC 3.88 M/mm3 (3.65-5.03) 09/18/20 04:07 Hgb 12.5 gm/dl (11.8-15.2) 09/18/20 04:07 Hct 36.5 % (35.5-45.6) 09/18/20 04:07 MCV 94 fl (84-94) 09/18/20 04:07 MCH 32 pg (28-32) 09/18/20 04:07 MCHC 34 % (32-34) 09/18/20 04:07 RDW 13.9 % (13.2-15.2) 09/18/20 04:07 Plt Count 105 K/mm3 (140-440) L 09/18/20 04:07 Add Manual Diff Complete 09/15/20 06:46 Total Counted 100 09/15/20 06:46 Seg Neutrophils % Seed Core Operator 09/15/20 06:46 Seg Neuts % (Manual) 90.0 % (40.0-70.0) H 09/15/20 06:46 Band Neutrophils % 8.0 % 09/15/20 06:46 Lymphocytes % (Manual) 1.0 % (13.4-35.0) L 09/15/20 06:46 Monocytes % (Manual) 1.0 % (0.0-7.3) 09/14/20 12:28 Metamyelocytes % 1.0 % 09/15/20 06:46 Nucleated RBC % 1.0 % (0.0-0.9) H 09/15/20 06:46 Seg Neutrophils # Man 13.7 K/mm3 (1.8-7.7) H 09/15/20 06:46 Band Neutrophils # 1.2 K/mm3 09/15/20 06:46 Lymphocytes # (Manual) 0.2 K/mm3 (1.2-5.4) L 09/15/20 06:46 Abs React Lymphs (Man) 0.0 K/mm3 09/15/20 06:46 Monocytes # (Manual) 0.0 K/mm3 (0.0-0.8) 09/15/20 06:46 Eosinophils # (Manual) 0.0 K/mm3 (0.0-0.4) 09/15/20 06:46 Basophils # (Manual) 0.0 K/mm3 (0.0-0.1) 09/15/20 06:46 Metamyelocytes # 0.2 K/mm3 09/15/20 06:46 Myelocytes # 0.0 K/mm3 09/15/20 06:46 Promyelocytes # 0.0 K/mm3 09/15/20 06:46 Blast Cells # 0.0 K/mm3 09/15/20 06:46 WBC Morphology Not Reportable 09/15/20 06:46 Hypersegmented Neuts Not Reportable 09/15/20 06:46 Hyposegmented Neuts Not Reportable 09/15/20 06:46 Hypogranular Neuts Not Reportable 09/15/20 06:46 Smudge Cells Not Reportable 09/15/20 06:46 Toxic Granulation Not Reportable 09/15/20 06:46 Toxic Vacuolation Not Reportable 09/15/20 06:46 Dohle Bodies Not Reportable 09/15/20 06:46 Pelger-Huet Anomaly Not Reportable 09/15/20 06:46 Liliana Rods Not Reportable 09/15/20 06:46 Platelet Estimate Consistent w auto 09/15/20 06:46 Clumped Platelets Not Reportable 09/15/20 06:46 Plt Clumps, EDTA Not Reportable 09/15/20 06:46 Large Platelets Not Reportable 09/15/20 06:46 Giant Platelets Not Reportable 09/15/20 06:46 Platelet Satelliting Not Reportable 09/15/20 06:46 Plt Morphology Comment Not Reportable 09/15/20 06:46 RBC Morphology Normal 09/15/20 06:46 Dimorphic RBCs Not Reportable 09/15/20 06:46 Polychromasia Not Reportable 09/15/20 06:46 Hypochromasia Not Reportable 09/15/20 06:46 Poikilocytosis Not Reportable 09/15/20 06:46 Anisocytosis Not Reportable 09/15/20 06:46 Microcytosis Not Reportable 09/15/20 06:46 Macrocytosis Not Reportable 09/15/20 06:46 Spherocytes Not Reportable 09/15/20 06:46 Pappenheimer Bodies Not Reportable 09/15/20 06:46 Sickle Cells Not Reportable 09/15/20 06:46 Target Cells Not Reportable 09/15/20 06:46 Tear Drop Cells Not Reportable 09/15/20 06:46 Ovalocytes Not Reportable 09/15/20 06:46 Helmet Cells Not Reportable 09/15/20 06:46 [place] Bodies Not Reportable 09/15/20 06:46 [place] Rings Not Reportable 09/15/20 06:46 [place] Cells Not Reportable 09/15/20 06:46 Bite Cells Not Reportable 09/15/20 06:46 Crenated Cell Not Reportable 09/15/20 06:46 Elliptocytes Not Reportable 09/15/20 06:46 Acanthocytes (Spur) Not Reportable 09/15/20 06:46 Rouleaux Not Reportable 09/15/20 06:46 Hemoglobin C Crystals Not Reportable 09/15/20 06:46 Schistocytes Not Reportable 09/15/20 06:46 Malaria parasites Not Reportable 09/15/20 06:46 Juan Antonio Bodies Not Reportable 09/15/20 06:46 Hem Pathologist Commnt No 09/15/20 06:46 Sodium 142 mmol/L (137-145) 09/18/20 04:07 Potassium 3.1 mmol/L (3.6-5.0) L 09/18/20 04:07 Chloride 107.6 mmol/L (98-107) H 09/18/20 04:07 Carbon Dioxide 22 mmol/L (22-30) 09/18/20 04:07 Anion Gap 16 mmol/L 09/18/20 04:07 BUN 55 mg/dL (9-20) H 09/18/20 04:07 Creatinine 1.6 mg/dL (0.8-1.3) H 09/18/20 04:07 Estimated GFR 50 ml/min 09/18/20 04:07 BUN/Creatinine Ratio 34 % 09/18/20 04:07 Glucose 151 mg/dL (75-100) H 09/18/20 04:07 POC Glucose 114 mg/dL (70-105) H 09/16/20 07:40 Hemoglobin A1c 5.4 % (4-6) 09/14/20 12:28 Lactic Acid 4.00 mmol/L (0.7-2.0) H* 09/14/20 18:31 Calcium 8.1 mg/dL (8.4-10.2) L 09/18/20 04:07 Phosphorus 2.40 mg/dL (2.5-4.5) L 09/17/20 08:10 Magnesium 3.00 mg/dL (1.7-2.3) H 09/17/20 08:10 Total Bilirubin 0.50 mg/dL (0.1-1.2) 09/15/20 06:46 AST 31 units/L (5-40) 09/15/20 06:46 ALT 21 units/L (7-56) 09/15/20 06:46 Alkaline Phosphatase 92 units/L (35-129) 09/15/20 06:46 Total Protein 5.0 g/dL (6.3-8.2) L 09/15/20 06:46 Albumin 1.9 g/dL (3.9-5) L 09/15/20 06:46 Albumin/Globulin Ratio 0.6 % 09/15/20 06:46 Urine Color Martha (Yellow) 09/14/20 Unknown Urine Turbidity Cloudy (Clear) 09/14/20 Unknown Urine pH 5.0 (5.0-7.0) 09/14/20 Unknown Ur Specific [place] 1.019 (1.003-1.030) 09/14/20 Unknown Urine Protein 100 mg/dl mg/dL (Negative) 09/14/20 Unknown Urine Glucose (UA) 50 mg/dL (Negative) 09/14/20 Unknown Urine Ketones Tr mg/dL (Negative) 09/14/20 Unknown Urine Blood Lg (Negative) 09/14/20 Unknown Urine Nitrite Neg (Negative) 09/14/20 Unknown Urine Bilirubin Neg (Negative) 09/14/20 Unknown Urine Urobilinogen < 2.0 mg/dL (<2.0) 09/14/20 Unknown Ur Leukocyte Esterase Tr (Negative) 09/14/20 Unknown Urine WBC (Auto) < 1.0 /HPF (0.0-6.0) 09/14/20 Unknown Urine RBC (Auto) < 1.0 /HPF (0.0-6.0) 09/14/20 Unknown U Epithel Cells (Auto) 3.0 /HPF (0-13.0) 09/14/20 Unknown C. difficile Tox (PCR) Positive (Negative) 09/16/20 08:40 Microbiology: Microbiology 09/14/20 18:31 Peripheral/Venous Blood Culture - Preliminary NO GROWTH AFTER 72 HOURS 09/14/20 18:31 Peripheral/Venous Blood Culture - Preliminary NO GROWTH AFTER 72 HOURS [place]/IV: Voiding Method Incontinent Active Medications - Current Medications Current Medications: Generic Name Dose Route Start Last Admin Trade Name Freq PRN Reason Stop Dose Admin Acetaminophen 650 mg 09/14/20 22:00 Acetaminophen 325 Mg Tab PO Q4H PRN Pain MILD(1-3)/Fever >100.5/GUY Donepezil HCl 10 mg 09/14/20 22:00 09/17/20 14:25 Donepezil 10 Mg Tab PO 10 mg QDAY JEVON Administration Famotidine 20 mg 09/14/20 22:00 09/17/20 10:12 Famotidine 20 Mg/2 Ml Inj IV 20 mg QAM JEVON Administration Heparin Sodium (Porcine) 5,000 unit 09/14/20 22:00 09/17/20 21:54 Heparin 5,000 Unit/1 Ml Vial SUB-Q 5,000 unit Q12HR JEVON Administration Hydromorphone HCl 0.5 mg 09/14/20 22:00 Hydromorphone 1 Mg/1 Ml Inj IV Q3H PRN Pain , Severe (7-10) Sodium Bicarbonate 75 meq/ 1,075 mls @ 75 mls/hr 09/16/20 09:00 09/18/20 03:44 Sterile Water IV 75 mls/hr DIRECT JEVON Administration Metoclopramide HCl 5 mg 09/14/20 23:00 Metoclopramide 10 Mg/2 Ml Inj IV Q6H PRN Nausea And Vomiting Metronidazole 500 mg 09/17/20 11:00 09/18/20 05:18 Metronidazole 500 Mg Tab PO 500 mg Q8HR JEVON Administration Protocol Mirtazapine 15 mg 09/16/20 22:00 09/17/20 21:54 Mirtazapine 15 Mg Tab PO 15 mg QHS JEVON Administration Morphine Sulfate 2 mg 09/14/20 22:00 Morphine 2 Mg/1 Ml Inj IV Q4H PRN Pain, Moderate (4-6) Ondansetron HCl 4 mg 09/14/20 22:00 Ondansetron 4 Mg/2 Ml Inj IV Q8H PRN Nausea And Vomiting Sodium Chloride 10 ml 09/14/20 22:00 09/17/20 22:03 Sodium Chloride 0.9% 10 Ml Flush Syringe IV 10 ml BID JEVON Administration Sodium Chloride 10 ml 09/14/20 22:00 Sodium Chloride 0.9% 10 Ml Flush Syringe IV PRN PRN LINE FLUSH Tamsulosin HCl 0.4 mg 09/14/20 22:00 09/17/20 10:13 Tamsulosin 0.4 Mg Cap PO 0.4 mg QDAY JEVON Administration Trazodone HCl 50 mg 09/14/20 22:00 09/17/20 10:13 Trazodone 50 Mg Tab PO 50 mg QDAY JEVON Administration Vancomycin HCl 500 mg 09/17/20 14:00 09/18/20 05:18 Vancomycin 250 Mg/10 Ml Oral Liqd PO 500 mg Q6HR JEVON Administration Protocol Nutrition/Malnutrition Assess - Dietary Evaluation Nutrition/Malnutrition Findings: Nutrition Notes Start: 09/15/20 13:27 Freq: Status: Active Protocol: Document 09/17/20 12:38 (Rec: 09/17/20 12:44 [id number]) Nutrition Notes Initial or Follow up Reassessment Current Diagnosis Acute Kidney Injury, Hypertension Other Pertinent Diagnosis SIRS, colitis Current Diet clear liquids Labs/Tests Na 148 BUN 70 Cr 2 Phos 2.4 Mg 3 Pertinent Medications reviewed Height 5 ft 6 in Weight 49 kg [place] Body Weight (kg) 64.54 BMI 17.4 Weight Status Underweight Subjective/Other Information Per RN, pt tolerating clear liquids and drank 1 ONS. Percent of energy/protein needs met: 62%/41% Burn Absent Trauma Absent GI Symptoms Diarrhea Current % PO Good (75-100%) Minimum of two criteria Yes Body Fat Depletion Mild depletion (non-severe) Muscle Mass Mild Depletion (non-severe) #1 Nutrition Diagnosis Malnutrition Diagnosis Progress(for reassessment Continues documentation) Is patient on ventilator? No Is Patient Ambulatory and/or Out of Bed No REE-([place]-St. Jeor-confined to bed) 1342.968 Calculation Used for Recommendations Primo Bob Additional Notes Protein: (1.2-1.5 g/kg) 58-73g Fluid: 1 ml/kcal Nutrition Intervention Change Diet Order: advance as able Add Supplement/Snack (indicate name/kcal Ensure Clear TID /protein ) Provides kCal: 720 Provides Protein (gm) 24 Goal #1 Meet needs as best as possible Goal #2 Weight gain/maintenance Anticipated Discharge Needs: cardiac with ONS daily Follow-Up By: 09/20/20 Additional Comments F/u: diet advancement and intakes
--- NOTE | 2020-09-18 09:58 | Progress Note ---
Assessment and Plan 1. Acute kidney injury: Vasomotor URMILA in the setting of volume depletion and hypotension. CT abdomen negative for hydro. Urine studies ordered. Baseline renal function is unknown. Most likely background CKD. Monitor renal function. Creatinine level is improving. Avoid nephrotoxic agents. Meds dosage based on GFR. 2. FEN: Metabolic acidosis, bicarb drip, monitor. Hypernatremia, monitor. Replete K and Phos. Monitor lytes. 3. Severe sepsis secondary to severe C. difficile colitis On Flagyl and Vancomycin. Followed by ID. 4. Hypertension: BP is controlled. Adjust meds as needed. Monitor. 5. Dementia. Subjective: Patient was seen and examined at the bedside. Examination: General appearance: well-developed, emaciated, appears stated age, not in distress HEENT: ATNC, pupils equal Neck: Trachea midline Respiratory: ctab Cardiology: S1S2, no murmur Gastrointestinal: soft, bowel sounds heard, not tender Integumentary: warm and dry Neurologic: somnolent, able to move extremities, confused Ext: no edema Subjective Date of service: 09/18/20 Objective - Vital Signs Vital signs: Vital Signs - 12hr 09/18/20 09/18/20 09/18/20 00:07 01:08 06:01 Temperature 97.9 F 97.6 F Pulse Rate 60 71 Respiratory 18 18 Rate Blood Pressure 131/63 134/71 O2 Sat by Pulse 100 96 93 Oximetry 09/18/20 07:54 Temperature 97.7 F Pulse Rate 75 Respiratory 18 Rate Blood Pressure 144/71 O2 Sat by Pulse 95 Oximetry - Lab 09/18/20 04:07 09/18/20 04:07 Most recent lab results Calcium 8.1 mg/dL (8.4-10.2) L 09/18/20 04:07 Phosphorus 2.40 mg/dL (2.5-4.5) L 09/17/20 08:10 Magnesium 3.00 mg/dL (1.7-2.3) H 09/17/20 08:10 Medications & Allergies - Medications Allergies/Adverse Reactions: Allergies No Known Allergies Allergy (Unverified 09/02/20 09:20) Home Medications: Home Medications Medication Instructions Recorded Confirmed Last Taken Type Donepezil HCl [Donepezil HCl Odt] 10 mg PO QDAY 09/14/20 09/14/20 Unknown History Mirtazapine [Remeron 15mg TAB] 15 mg PO QHS 09/14/20 09/14/20 Unknown History Tamsulosin [Flomax] 0.4 mg PO QDAY 09/14/20 09/14/20 Unknown History Trazodone HCl 50 mg PO QDAY 09/14/20 09/14/20 Unknown History Active Medications: Generic Name Dose Route Start Last Admin Trade Name Freq PRN Reason Stop Dose Admin Acetaminophen 650 mg 09/14/20 22:00 Acetaminophen 325 Mg Tab PO Q4H PRN Pain MILD(1-3)/Fever >100.5/GUY Donepezil HCl 10 mg 09/14/20 22:00 09/17/20 14:25 Donepezil 10 Mg Tab PO 10 mg QDAY JEVON Administration Famotidine 20 mg 09/14/20 22:00 09/17/20 10:12 Famotidine 20 Mg/2 Ml Inj IV 20 mg QAM JEVON Administration Heparin Sodium (Porcine) 5,000 unit 09/14/20 22:00 09/17/20 21:54 Heparin 5,000 Unit/1 Ml Vial SUB-Q 5,000 unit Q12HR JEVON Administration Hydromorphone HCl 0.5 mg 09/14/20 22:00 Hydromorphone 1 Mg/1 Ml Inj IV Q3H PRN Pain , Severe (7-10) Sodium Bicarbonate 75 meq/ 1,075 mls @ 75 mls/hr 09/16/20 09:00 09/18/20 03:44 Sterile Water IV 75 mls/hr DIRECT JEVON Administration Metoclopramide HCl 5 mg 09/14/20 23:00 Metoclopramide 10 Mg/2 Ml Inj IV Q6H PRN Nausea And Vomiting Metronidazole 500 mg 09/17/20 11:00 09/18/20 05:18 Metronidazole 500 Mg Tab PO 500 mg Q8HR JEVON Administration Protocol Mirtazapine 15 mg 09/16/20 22:00 09/17/20 21:54 Mirtazapine 15 Mg Tab PO 15 mg QHS JEVON Administration Morphine Sulfate 2 mg 09/14/20 22:00 Morphine 2 Mg/1 Ml Inj IV Q4H PRN Pain, Moderate (4-6) Ondansetron HCl 4 mg 09/14/20 22:00 Ondansetron 4 Mg/2 Ml Inj IV Q8H PRN Nausea And Vomiting Potassium Chloride 40 meq 09/18/20 10:00 Potassium Chloride Er 20 Meq Tab PO 09/18/20 10:01 ONCE ONE Sodium Chloride 10 ml 09/14/20 22:00 09/17/20 22:03 Sodium Chloride 0.9% 10 Ml Flush Syringe IV 10 ml BID JEVON Administration Sodium Chloride 10 ml 09/14/20 22:00 Sodium Chloride 0.9% 10 Ml Flush Syringe IV PRN PRN LINE FLUSH Tamsulosin HCl 0.4 mg 09/14/20 22:00 09/17/20 10:13 Tamsulosin 0.4 Mg Cap PO 0.4 mg QDAY JEVON Administration Trazodone HCl 50 mg 09/14/20 22:00 09/17/20 10:13 Trazodone 50 Mg Tab PO 50 mg QDAY JEVON Administration Vancomycin HCl 500 mg 09/17/20 14:00 09/18/20 05:18 Vancomycin 250 Mg/10 Ml Oral Liqd PO 500 mg Q6HR JEVON Administration Protocol
[2020-09-18] MEDS ORDERED: POTASSIUM CHLORIDE ER 20 MEQ TAB PO SCH (10:00)
--- NOTE | 2020-09-18 10:56 | Progress Note ---
Assessment and Plan Cultures: 09/14/2020 blood culture: No growth 09/16/2020 C. difficile PCR: Positive A/P: 84-year-old male with CKD, hypertension, dementia, long term resident was admitted to the hospital due to tachycardia and sepsis: #Severe sepsis secondary to severe C. difficile colitis: WBC improving. Diarrhea +. CT showed pancolitis. #Acute kidney injury: Likely secondary to above. improving. Recs: -continue PO vancomycin 500 mg 4 times daily plus IV Flagyl 500 mg every 8h -Avoid other systemic antimicrobials due to risk of worsening C. difficile -if WBC continues to improve, discontinue Flagyl tomorrow Say Montes MD, FACP [facility] ([facility] O: [phone] F: [phone] Subjective Date of service: 09/18/20 Interval history: Diarrhea still present per RN. No fever. WBC down. Patient denies any complaints, says everything is fine, poor historian. Objective - Exam Narrative Exam: Physical Exam: Constitutional: Awake Head, Ears, Nose: Normocephalic, atraumatic. External ears, nose normal Eyes: Conjunctivae/corneas clear. No icterus. No ptosis. Neck: Supple, no meningeal signs Cardiovascular: S1, S2 + Respiratory: Good air entry, clear to auscultation bilaterally GI: Soft, non-tender; bowel sounds normal. No peritoneal signs Musculoskeletal: No pedal edema, no cyanosis. Skin: No rash or abscess Hem/Lymphatic: No palpable cervical or supraclavicular nodes. No lymphangitis Psych: No agitation Neurological: Awake, confused - Constitutional Vitals: Vital Signs Temp Pulse Resp BP Pulse Ox 97.7 F 75 18 144/71 95 09/18/20 07:54 09/18/20 07:54 09/18/20 07:54 09/18/20 07:54 09/18/20 07:54 Temperature -Last 24 Hours Temperature 97.7 F Temperature 97.6 F Temperature 97.9 F Temperature 67.9 F Temperature 98.0 F Temperature 98.4 F - Labs CBC & Chem 7: 09/18/20 04:07 09/18/20 04:07 Labs: Abnormal lab results 09/18/20 09/18/20 Range/Units 04:07 04:07 WBC 11.6 H (4.5-11.0) K/mm3 Plt Count 105 L (140-440) K/mm3 Potassium 3.1 L (3.6-5.0) mmol/L Chloride 107.6 H (98-107) mmol/L BUN 55 H (9-20) mg/dL Creatinine 1.6 H (0.8-1.3) mg/dL Glucose 151 H (75-100) mg/dL Calcium 8.1 L (8.4-10.2) mg/dL
[2020-09-18] MEDS ORDERED: POTASSIUM CHLORIDE ER 20 MEQ TAB PO ONE (11:00)
[2020-09-18] MEDS: FAMOTIDINE 20 MG/2 ML INJ IV SCH (11:21)
[2020-09-18] MEDS: HEPARIN 5,000 UNIT/1 ML VIAL SUB-Q SCH ×2 (11:21→22:00)
[2020-09-18] MEDS: TAMSULOSIN 0.4 MG CAP PO SCH (11:22)
[2020-09-18] MEDS: traZODone 50 MG TAB PO SCH (11:22)
[2020-09-18] MEDS: DONEPEZIL 10 MG TAB PO SCH (11:44)
[2020-09-18] MEDS ORDERED: POTASSIUM PHOSPHATE 15 MMOL in SODIUM CHLORIDE 0.9% 250ML 250 ML IV ONE (13:00)
--- NOTE | 2020-09-18 14:50 | Gastroenterology Progress Note ---
Assessment and Plan GI: pt w/ C. diff colitis - improving WBC, overall improved - ID input noted, antibiotics management per ID - no plans to scope or other GI interventions at this time - ok to dc when cleared by ID - will sign off, call if needed Subjective Date of service: 09/18/20 Interval history: - no specific GI complaints overnight per staff Objective - Constitutional Vitals: Temp Pulse Resp BP Pulse Ox 97.9 F 62 18 135/71 95 09/18/20 12:11 09/18/20 12:11 09/18/20 12:11 09/18/20 12:11 09/18/20 12:11 General appearance: no acute distress - EENT Eyes: PERRL - Respiratory Respiratory: bilateral: CTA - Cardiovascular Rhythm: regular Heart Sounds: Present: S1 & S2 - Gastrointestinal General gastrointestinal: Present: soft, non-tender, non-distended - Labs CBC & Chem 7: 09/18/20 04:07 09/18/20 04:07 Labs: Laboratory Results - last 24 hr 09/18/20 09/18/20 04:07 04:07 WBC 11.6 H RBC 3.88 Hgb 12.5 Hct 36.5 MCV 94 MCH 32 MCHC 34 RDW 13.9 Plt Count 105 L Sodium 142 Potassium 3.1 L Chloride 107.6 H Carbon Dioxide 22 Anion Gap 16 BUN 55 H Creatinine 1.6 H Estimated GFR 50 BUN/Creatinine Ratio 34 Glucose 151 H Calcium 8.1 L
[2020-09-18] MEDS: MIRTAZAPINE 15 MG TAB PO SCH (22:44)
[2020-09-19] MEDS: SODIUM BICARBONATE 75 MEQ in WATER FOR INJECTION (PF) 1,000 ML IV SCH ×2 (02:30→17:35)
[2020-09-19 05:30] LABS: Hematocrit 42.8 % (35.5-45.6); Hemoglobin 14.5 gm/dl (11.8-15.2); Mean Corpuscular HGB Conc 34 % (32-34); Mean Corpuscular Volume 94 fl (84-94); Platelet Count 96 K/mm3 (140-440); Red Blood Count 4.54 M/mm3 (3.65-5.03); Red Cell Distribution Width 14.4 % (13.2-15.2)
[2020-09-19 06:01] LABS: BUN/Creatinine Ratio 33; Blood Urea Nitrogen 40 mg/dL (9-20); Calcium 7.6 mg/dL (8.4-10.2); Hemolysis Index 7
[2020-09-19] MEDS: VANCOMYCIN 250 MG/10 ML ORAL LIQD PO SCH ×2 (06:59→17:34)
[2020-09-19] MEDS: metroNIDAZOLE 500 MG TAB PO SCH (06:59)
--- NOTE | 2020-09-19 08:12 | Progress Note ---
Assessment and Plan Assessment and plan: (1) SIRS (systemic inflammatory response syndrome) Current Visit: Yes Status: Acute Plan to address problem: Patient has high white count and elevated lactic acid IV fluids and IV antibiotics for now (2) Colitis Current Visit: Yes Status: Acute Plan to address problem: Etiology unclear High white count Patient started on IV Zosyn GI consult requested To samples for culture sensitivity and C. difficile restaurant (3) Acute kidney injury Current Visit: Yes Status: Acute Plan to address problem: IV fluids for now There is apparently on dialysis Will call the retirement to find out will order orthopedic physician assistant and resume hemodialysis if necessary Creatinine is low 2.2 and not consistent with end-stage renal disease (4) Hypertension Current Visit: Yes Status: Acute (5) Hypertension Current Visit: Yes Status: Chronic Qualifiers: Hypertension type: primary hypertension Qualified Code(s): I10 - Essential (primary) hypertension Plan to address problem: Antihypertensives on hold (6) DVT prophylaxis Current Visit: Yes Status: Acute Plan to address problem: On heparin and GI prophylaxis Severe Malnutrition Consult Hygiene Coordinator 09/15/20 Patient with acute colitis, acute kidney injury. Nephrology and GI consulted, Continue iv Zosyn creatinine improved 2.0 today from 2.2 yesterday 09/16/20 Patient with acute colitis, acute kidney injury. He is followed by GI and nephrology. Cr 1.9, very slight improvement 09/17/20 Patient diagnosed with c.diff colitis. Started on Flagyl, Cr 2.0 today 09/18/20 Patient with c.diff colitis and URMILA. Now on Vancomycin for c diff. ID Specialist, Nephrology and GI following. Cr improving 1.6 today. 09/19/20 Patient with c.diff colitis, acute kidney injury and severe maln utrition. Creatinine improving down to 1.6 today. He is on Vancomycin and Flagyl for c. diff colitis. Potassium low today. Give K- dur 40meq X 1 dose History Interval history: Patient sent in for hypotension, found to have c.diff colitis and URMILA No fever Hospitalist Physical - Physical exam Narrative exam: Gen: Not in acute distress, lying in bed,malnourished HEENT: Normocephalic, atraumatic Neck : supple, no JVD Heart:S1 and S2 reg, no murmurs, rubs or gallop Lungs: clear to auscultation bilaterally, no wheeze Abd: Soft , mild tenderness, non distended, normal bowel sounds Ext: No edema, no clubbing, no cyanosis Neuro: Awake, alert, - Constitutional Vitals: Temp Pulse Resp BP Pulse Ox 97.5 F L 59 L 16 101/68 95 09/19/20 07:20 09/19/20 07:20 09/19/20 07:20 09/19/20 07:20 09/19/20 07:22 General appearance: Present: no acute distress Results - Labs CBC & Chem 7: 09/19/20 04:19 09/19/20 04:19 Labs: Laboratory Last Values WBC 7.9 K/mm3 (4.5-11.0) 09/19/20 04:19 RBC 4.54 M/mm3 (3.65-5.03) 09/19/20 04:19 Hgb 14.5 gm/dl (11.8-15.2) 09/19/20 04:19 Hct 42.8 % (35.5-45.6) D 09/19/20 04:19 MCV 94 fl (84-94) 09/19/20 04:19 MCH 32 pg (28-32) 09/19/20 04:19 MCHC 34 % (32-34) 09/19/20 04:19 RDW 14.4 % (13.2-15.2) 09/19/20 04:19 Plt Count 96 K/mm3 (140-440) L 09/19/20 04:19 Add Manual Diff Complete 09/15/20 06:46 Total Counted 100 09/15/20 06:46 Seg Neutrophils % Lead Electrical Engineer 09/15/20 06:46 Seg Neuts % (Manual) 90.0 % (40.0-70.0) H 09/15/20 06:46 Band Neutrophils % 8.0 % 09/15/20 06:46 Lymphocytes % (Manual) 1.0 % (13.4-35.0) L 09/15/20 06:46 Monocytes % (Manual) 1.0 % (0.0-7.3) 09/14/20 12:28 Metamyelocytes % 1.0 % 09/15/20 06:46 Nucleated RBC % 1.0 % (0.0-0.9) H 09/15/20 06:46 Seg Neutrophils # Man 13.7 K/mm3 (1.8-7.7) H 09/15/20 06:46 Band Neutrophils # 1.2 K/mm3 09/15/20 06:46 Lymphocytes # (Manual) 0.2 K/mm3 (1.2-5.4) L 09/15/20 06:46 Abs React Lymphs (Man) 0.0 K/mm3 09/15/20 06:46 Monocytes # (Manual) 0.0 K/mm3 (0.0-0.8) 09/15/20 06:46 Eosinophils # (Manual) 0.0 K/mm3 (0.0-0.4) 09/15/20 06:46 Basophils # (Manual) 0.0 K/mm3 (0.0-0.1) 09/15/20 06:46 Metamyelocytes # 0.2 K/mm3 09/15/20 06:46 Myelocytes # 0.0 K/mm3 09/15/20 06:46 Promyelocytes # 0.0 K/mm3 09/15/20 06:46 Blast Cells # 0.0 K/mm3 09/15/20 06:46 WBC Morphology Not Reportable 09/15/20 06:46 Hypersegmented Neuts Not Reportable 09/15/20 06:46 Hyposegmented Neuts Not Reportable 09/15/20 06:46 Hypogranular Neuts Not Reportable 09/15/20 06:46 Smudge Cells Not Reportable 09/15/20 06:46 Toxic Granulation Not Reportable 09/15/20 06:46 Toxic Vacuolation Not Reportable 09/15/20 06:46 Dohle Bodies Not Reportable 09/15/20 06:46 Pelger-Huet Anomaly Not Reportable 09/15/20 06:46 Liliana Rods Not Reportable 09/15/20 06:46 Platelet Estimate Consistent w auto 09/15/20 06:46 Clumped Platelets Not Reportable 09/15/20 06:46 Plt Clumps, EDTA Not Reportable 09/15/20 06:46 Large Platelets Not Reportable 09/15/20 06:46 Giant Platelets Not Reportable 09/15/20 06:46 Platelet Satelliting Not Reportable 09/15/20 06:46 Plt Morphology Comment Not Reportable 09/15/20 06:46 RBC Morphology Normal 09/15/20 06:46 Dimorphic RBCs Not Reportable 09/15/20 06:46 Polychromasia Not Reportable 09/15/20 06:46 Hypochromasia Not Reportable 09/15/20 06:46 Poikilocytosis Not Reportable 09/15/20 06:46 Anisocytosis Not Reportable 09/15/20 06:46 Microcytosis Not Reportable 09/15/20 06:46 Macrocytosis Not Reportable 09/15/20 06:46 Spherocytes Not Reportable 09/15/20 06:46 Pappenheimer Bodies Not Reportable 09/15/20 06:46 Sickle Cells Not Reportable 09/15/20 06:46 Target Cells Not Reportable 09/15/20 06:46 Tear Drop Cells Not Reportable 09/15/20 06:46 Ovalocytes Not Reportable 09/15/20 06:46 Helmet Cells Not Reportable 09/15/20 06:46 Cee-Herminie Bodies Not Reportable 09/15/20 06:46 Uneeda Rings Not Reportable 09/15/20 06:46 Maggi Cells Not Reportable 09/15/20 06:46 Bite Cells Not Reportable 09/15/20 06:46 Crenated Cell Not Reportable 09/15/20 06:46 Elliptocytes Not Reportable 09/15/20 06:46 Acanthocytes (Spur) Not Reportable 09/15/20 06:46 Rouleaux Not Reportable 09/15/20 06:46 Hemoglobin C Crystals Not Reportable 09/15/20 06:46 Schistocytes Not Reportable 09/15/20 06:46 Malaria parasites Not Reportable 09/15/20 06:46 Juan Antonio Bodies Not Reportable 09/15/20 06:46 Hem Pathologist Commnt No 09/15/20 06:46 Sodium 139 mmol/L (137-145) 09/19/20 04:19 Potassium 3.5 mmol/L (3.6-5.0) L 09/19/20 04:19 Chloride 103.4 mmol/L (98-107) 09/19/20 04:19 Carbon Dioxide 27 mmol/L (22-30) 09/19/20 04:19 Anion Gap 12 mmol/L 09/19/20 04:19 BUN 40 mg/dL (9-20) H 09/19/20 04:19 Creatinine 1.2 mg/dL (0.8-1.3) 09/19/20 04:19 Estimated GFR > 60 ml/min 09/19/20 04:19 BUN/Creatinine Ratio 33 % 09/19/20 04:19 Glucose 101 mg/dL (75-100) H 09/19/20 04:19 POC Glucose 114 mg/dL (70-105) H 09/16/20 07:40 Hemoglobin A1c 5.4 % (4-6) 09/14/20 12:28 Lactic Acid 4.00 mmol/L (0.7-2.0) H* 09/14/20 18:31 Calcium 7.6 mg/dL (8.4-10.2) L 09/19/20 04:19 Phosphorus 2.60 mg/dL (2.5-4.5) 09/19/20 04:19 Magnesium 3.00 mg/dL (1.7-2.3) H 09/17/20 08:10 Total Bilirubin 0.50 mg/dL (0.1-1.2) 09/15/20 06:46 AST 31 units/L (5-40) 09/15/20 06:46 ALT 21 units/L (7-56) 09/15/20 06:46 Alkaline Phosphatase 92 units/L (35-129) 09/15/20 06:46 Total Protein 5.0 g/dL (6.3-8.2) L 09/15/20 06:46 Albumin 1.9 g/dL (3.9-5) L 09/15/20 06:46 Albumin/Globulin Ratio 0.6 % 09/15/20 06:46 Urine Color Martha (Yellow) 09/14/20 Unknown Urine Turbidity Cloudy (Clear) 09/14/20 Unknown Urine pH 5.0 (5.0-7.0) 09/14/20 Unknown Ur Specific [place] 1.019 (1.003-1.030) 09/14/20 Unknown Urine Protein 100 mg/dl mg/dL (Negative) 09/14/20 Unknown Urine Glucose (UA) 50 mg/dL (Negative) 09/14/20 Unknown Urine Ketones Tr mg/dL (Negative) 09/14/20 Unknown Urine Blood Lg (Negative) 09/14/20 Unknown Urine Nitrite Neg (Negative) 09/14/20 Unknown Urine Bilirubin Neg (Negative) 09/14/20 Unknown Urine Urobilinogen < 2.0 mg/dL (<2.0) 09/14/20 Unknown Ur Leukocyte Esterase Tr (Negative) 09/14/20 Unknown Urine WBC (Auto) < 1.0 /HPF (0.0-6.0) 09/14/20 Unknown Urine RBC (Auto) < 1.0 /HPF (0.0-6.0) 09/14/20 Unknown U Epithel Cells (Auto) 3.0 /HPF (0-13.0) 09/14/20 Unknown C. difficile Tox (PCR) Positive (Negative) 09/16/20 08:40 Microbiology: Microbiology 09/14/20 18:31 Peripheral/Venous Blood Culture - Preliminary NO GROWTH AFTER 4 DAYS 09/14/20 18:31 Peripheral/Venous Blood Culture - Preliminary NO GROWTH AFTER 4 DAYS Esclaona/IV: Voiding Method Condom Catheter Active Medications - Current Medications Current Medications: Generic Name Dose Route Start Last Admin Trade Name Freq PRN Reason Stop Dose Admin Acetaminophen 650 mg 09/14/20 22:00 Acetaminophen 325 Mg Tab PO Q4H PRN Pain MILD(1-3)/Fever >100.5/GUY Donepezil HCl 10 mg 09/14/20 22:00 09/18/20 11:44 Donepezil 10 Mg Tab PO 10 mg QDAY JEVON Administration Famotidine 20 mg 09/14/20 22:00 09/18/20 11:21 Famotidine 20 Mg/2 Ml Inj IV 20 mg QAM JEVON Administration Heparin Sodium (Porcine) 5,000 unit 09/14/20 22:00 09/18/20 22:00 Heparin 5,000 Unit/1 Ml Vial SUB-Q 5,000 unit Q12HR JEVON Administration Hydromorphone HCl 0.5 mg 09/14/20 22:00 Hydromorphone 1 Mg/1 Ml Inj IV Q3H PRN Pain , Severe (7-10) Sodium Bicarbonate 75 meq/ 1,075 mls @ 75 mls/hr 09/16/20 09:00 09/19/20 02:30 Sterile Water IV 75 mls/hr DIRECT JEVON Administration Metoclopramide HCl 5 mg 09/14/20 23:00 Metoclopramide 10 Mg/2 Ml Inj IV Q6H PRN Nausea And Vomiting Metronidazole 500 mg 09/17/20 11:00 09/19/20 06:59 Metronidazole 500 Mg Tab PO 500 mg Q8HR JEVON Administration Protocol Mirtazapine 15 mg 09/16/20 22:00 09/18/20 22:44 Mirtazapine 15 Mg Tab PO 15 mg QHS JEVON Administration Morphine Sulfate 2 mg 09/14/20 22:00 Morphine 2 Mg/1 Ml Inj IV Q4H PRN Pain, Moderate (4-6) Ondansetron HCl 4 mg 09/14/20 22:00 Ondansetron 4 Mg/2 Ml Inj IV Q8H PRN Nausea And Vomiting Sodium Chloride 10 ml 09/14/20 22:00 09/18/20 22:00 Sodium Chloride 0.9% 10 Ml Flush Syringe IV Not Given BID JEVON Sodium Chloride 10 ml 09/14/20 22:00 Sodium Chloride 0.9% 10 Ml Flush Syringe IV PRN PRN LINE FLUSH Tamsulosin HCl 0.4 mg 09/14/20 22:00 09/18/20 11:22 Tamsulosin 0.4 Mg Cap PO 0.4 mg QDAY JEVON Administration Trazodone HCl 50 mg 09/14/20 22:00 09/18/20 11:22 Trazodone 50 Mg Tab PO 50 mg QDAY JEVON Administration Vancomycin HCl 500 mg 09/17/20 14:00 09/19/20 06:59 Vancomycin 250 Mg/10 Ml Oral Liqd PO 500 mg Q6HR JEVON Administration Protocol Nutrition/Malnutrition Assess - Dietary Evaluation Nutrition/Malnutrition Findings: Nutrition Notes Start: 09/15/20 13:27 Freq: Status: Active Protocol: Document 09/17/20 12:38 (Rec: 09/17/20 12:44 [email or web address]) Nutrition Notes Initial or Follow up Reassessment Current Diagnosis Acute Kidney Injury, Hypertension Other Pertinent Diagnosis SIRS, colitis Current Diet clear liquids Labs/Tests Na 148 BUN 70 Cr 2 Phos 2.4 Mg 3 Pertinent Medications reviewed Height 5 ft 6 in Weight 49 kg [place] Body Weight (kg) 64.54 BMI 17.4 Weight Status Underweight Subjective/Other Information Per RN, pt tolerating clear liquids and drank 1 ONS. Percent of energy/protein needs met: 62%/41% Burn Absent Trauma Absent GI Symptoms Diarrhea Current % PO Good (75-100%) Minimum of two criteria Yes Body Fat Depletion Mild depletion (non-severe) Muscle Mass Mild Depletion (non-severe) #1 Nutrition Diagnosis Malnutrition Diagnosis Progress(for reassessment Continues documentation) Is patient on ventilator? No Is Patient Ambulatory and/or Out of Bed No REE-([facility]-confined to bed) 1342.968 Calculation Used for Recommendations [facility] Additional Notes Protein: (1.2-1.5 g/kg) 58-73g Fluid: 1 ml/kcal Nutrition Intervention Change Diet Order: advance as able Add Supplement/Snack (indicate name/kcal Ensure Clear TID /protein ) Provides kCal: 720 Provides Protein (gm) 24 Goal #1 Meet needs as best as possible Goal #2 Weight gain/maintenance Anticipated Discharge Needs: cardiac with ONS daily Follow-Up By: 09/20/20 Additional Comments F/u: diet advancement and intakes
[2020-09-19] MEDS ORDERED: POTASSIUM CHLORIDE ER 20 MEQ TAB PO SCH (09:00)
[2020-09-19] MEDS: TAMSULOSIN 0.4 MG CAP PO SCH (09:25)
[2020-09-19] MEDS: DONEPEZIL 10 MG TAB PO SCH (09:25)
[2020-09-19] MEDS: traZODone 50 MG TAB PO SCH (09:25)
[2020-09-19] MEDS: FAMOTIDINE 20 MG/2 ML INJ IV SCH (09:26)
[2020-09-19] MEDS: HEPARIN 5,000 UNIT/1 ML VIAL SUB-Q SCH ×2 (09:26→21:31)
--- NOTE | 2020-09-19 11:06 | Progress Note ---
Assessment and Plan 1. Acute kidney injury: Vasomotor URMILA in the setting of volume depletion and hypotension. CT abdomen negative for hydro. Urine studies ordered. Baseline renal function is unknown. Most likely background CKD. Monitor renal function. Creatinine level is improving. Avoid nephrotoxic agents. Meds dosage based on GFR. 2. FEN: Metabolic acidosis, on bicarb drip, monitor. Hypernatremia, improved. Replete K. Monitor lytes. 3. Severe sepsis secondary to severe C. difficile colitis On Vancomycin. Followed by ID. 4. Hypertension: BP is controlled. Adjust meds as needed. Monitor. 5. Dementia. Subjective: Patient was seen and examined at the bedside. Examination: General appearance: well-developed, emaciated, appears stated age, not in distress HEENT: ATNC, pupils equal Neck: Trachea midline Respiratory: ctab Cardiology: S1S2, no murmur Gastrointestinal: soft, bowel sounds heard, not tender Integumentary: warm and dry Neurologic: somnolent, able to move extremities, confused Ext: no edema Subjective Date of service: 09/19/20 Objective - Vital Signs Vital signs: Vital Signs - 12hr 09/19/20 09/19/20 09/19/20 00:31 03:00 03:56 Temperature 97.4 F L 97.4 F L Pulse Rate 45 L 68 Respiratory 18 18 Rate Blood Pressure 114/61 Blood Pressure 103/49 [Left] O2 Sat by Pulse 100 100 100 Oximetry 09/19/20 09/19/20 07:20 07:22 Temperature 97.5 F L Pulse Rate 59 L Respiratory 16 Rate Blood Pressure 101/68 Blood Pressure [Left] O2 Sat by Pulse 91 95 Oximetry - Lab 09/19/20 04:19 09/19/20 04:19 Most recent lab results Calcium 7.6 mg/dL (8.4-10.2) L 09/19/20 04:19 Phosphorus 2.60 mg/dL (2.5-4.5) 09/19/20 04:19 Magnesium 3.00 mg/dL (1.7-2.3) H 09/17/20 08:10 Medications & Allergies - Medications Allergies/Adverse Reactions: Allergies No Known Allergies Allergy (Unverified 09/02/20 09:20) Home Medications: Home Medications Medication Instructions Recorded Confirmed Last Taken Type Donepezil HCl [Donepezil HCl Odt] 10 mg PO QDAY 09/14/20 09/14/20 Unknown History Mirtazapine [Remeron 15mg TAB] 15 mg PO QHS 09/14/20 09/14/20 Unknown History Tamsulosin [Flomax] 0.4 mg PO QDAY 09/14/20 09/14/20 Unknown History Trazodone HCl 50 mg PO QDAY 09/14/20 09/14/20 Unknown History Active Medications: Generic Name Dose Route Start Last Admin Trade Name Freq PRN Reason Stop Dose Admin Acetaminophen 650 mg 09/14/20 22:00 Acetaminophen 325 Mg Tab PO Q4H PRN Pain MILD(1-3)/Fever >100.5/GUY Donepezil HCl 10 mg 09/14/20 22:00 09/19/20 09:25 Donepezil 10 Mg Tab PO 10 mg QDAY JEVON Administration Famotidine 20 mg 09/14/20 22:00 09/19/20 09:26 Famotidine 20 Mg/2 Ml Inj IV 20 mg QAM JEVON Administration Heparin Sodium (Porcine) 5,000 unit 09/14/20 22:00 09/19/20 09:26 Heparin 5,000 Unit/1 Ml Vial SUB-Q 5,000 unit Q12HR JEVON Administration Hydromorphone HCl 0.5 mg 09/14/20 22:00 Hydromorphone 1 Mg/1 Ml Inj IV Q3H PRN Pain , Severe (7-10) Sodium Bicarbonate 75 meq/ 1,075 mls @ 75 mls/hr 09/16/20 09:00 09/19/20 02:30 Sterile Water IV 75 mls/hr DIRECT JEVON Administration Metoclopramide HCl 5 mg 09/14/20 23:00 Metoclopramide 10 Mg/2 Ml Inj IV Q6H PRN Nausea And Vomiting Metronidazole 500 mg 09/17/20 11:00 09/19/20 06:59 Metronidazole 500 Mg Tab PO 500 mg Q8HR JEVON Administration Protocol Mirtazapine 15 mg 09/16/20 22:00 09/18/20 22:44 Mirtazapine 15 Mg Tab PO 15 mg QHS JEVON Administration Morphine Sulfate 2 mg 09/14/20 22:00 Morphine 2 Mg/1 Ml Inj IV Q4H PRN Pain, Moderate (4-6) Ondansetron HCl 4 mg 09/14/20 22:00 Ondansetron 4 Mg/2 Ml Inj IV Q8H PRN Nausea And Vomiting Potassium Chloride 40 meq 09/19/20 09:00 09/19/20 09:25 Potassium Chloride Er 20 Meq Tab PO 09/19/20 13:00 40 meq ONCE JEVON Administration Sodium Chloride 10 ml 09/14/20 22:00 09/19/20 09:26 Sodium Chloride 0.9% 10 Ml Flush Syringe IV 10 ml BID JEVON Administration Sodium Chloride 10 ml 09/14/20 22:00 Sodium Chloride 0.9% 10 Ml Flush Syringe IV PRN PRN LINE FLUSH Tamsulosin HCl 0.4 mg 09/14/20 22:00 09/19/20 09:25 Tamsulosin 0.4 Mg Cap PO 0.4 mg QDAY JEVON Administration Trazodone HCl 50 mg 09/14/20 22:00 09/19/20 09:25 Trazodone 50 Mg Tab PO 50 mg QDAY JEVON Administration Vancomycin HCl 500 mg 09/17/20 14:00 09/19/20 06:59 Vancomycin 250 Mg/10 Ml Oral Liqd PO 500 mg Q6HR JEVON Administration Protocol
--- NOTE | 2020-09-19 14:11 | Progress Note ---
Assessment and Plan Cultures: 09/14/2020 blood culture: No growth 09/16/2020 C. difficile PCR: Positive A/P: 84-year-old male with CKD, hypertension, dementia, skilled nursing resident was admitted to the hospital due to tachycardia and sepsis: #Severe sepsis secondary to severe C. difficile colitis: WBC improving. Diarrhea +. CT showed pancolitis. #Acute kidney injury: Likely secondary to above. improving. Recs: -Flagyl discontinued -continue PO vancomycin dose decreased to 125 mg QID x 10 more days -Avoid other systemic antimicrobials due to risk of worsening C. difficile ID will sign off. Please call with questions. Say Montes MD, FACP [facility] ([facility] O: [phone] F: [phone] Subjective Date of service: 09/19/20 Interval history: Diarrhe better per RN. No fever. WBC down. Poor historian, no complaints. Objective - Exam Narrative Exam: Physical Exam: Constitutional: Awake Head, Ears, Nose: Normocephalic, atraumatic. External ears, nose normal Eyes: Conjunctivae/corneas clear. No icterus. No ptosis. Neck: Supple, no meningeal signs Cardiovascular: S1, S2 + Respiratory: Good air entry, clear to auscultation bilaterally GI: Soft, non-tender; bowel sounds normal. No peritoneal signs Musculoskeletal: No pedal edema, no cyanosis. Skin: No rash or abscess Hem/Lymphatic: No palpable cervical or supraclavicular nodes. No lymphangitis Psych: No agitation Neurological: Awake, confused - Constitutional Vitals: Vital Signs Temp Pulse Resp BP Pulse Ox 98.3 F 67 16 105/62 100 09/19/20 11:08 09/19/20 11:08 09/19/20 11:08 09/19/20 11:08 09/19/20 13:00 Temperature -Last 24 Hours Temperature 98.3 F Temperature 97.5 F Temperature 97.4 F Temperature 97.4 F Temperature 97.4 F Temperature 99.1 F - Labs CBC & Chem 7: 09/19/20 04:19 09/19/20 04:19 Labs: Abnormal lab results 09/19/20 09/19/20 Range/Units 04:19 04:19 Plt Count 96 L (140-440) K/mm3 Potassium 3.5 L (3.6-5.0) mmol/L BUN 40 H (9-20) mg/dL Glucose 101 H (75-100) mg/dL Calcium 7.6 L (8.4-10.2) mg/dL
[2020-09-19] MEDS: MIRTAZAPINE 15 MG TAB PO SCH (21:32)
[2020-09-20] MEDS: VANCOMYCIN 250 MG/10 ML ORAL LIQD PO SCH ×4 (00:21→18:25)
[2020-09-20 05:06] LABS: Hematocrit 42.1 % (35.5-45.6); Hemoglobin 14.4 gm/dl (11.8-15.2); Mean Corpuscular HGB Conc 34 % (32-34); Mean Corpuscular Volume 94 fl (84-94); Red Blood Count 4.47 M/mm3 (3.65-5.03); Red Cell Distribution Width 14.3 % (13.2-15.2)
[2020-09-20 05:07] LABS: Platelet Count 86 K/mm3 (140-440)
[2020-09-20 05:14] LABS: Calcium 7.3 mg/dL (8.4-10.2)
[2020-09-20] MEDS: DONEPEZIL 10 MG TAB PO SCH ×2 (08:07→18:24)
[2020-09-20] MEDS: FAMOTIDINE 20 MG/2 ML INJ IV SCH ×2 (08:07→10:00)
[2020-09-20] MEDS: traZODone 50 MG TAB PO SCH ×2 (08:08→10:00)
[2020-09-20] MEDS: TAMSULOSIN 0.4 MG CAP PO SCH ×2 (08:08→10:00)
[2020-09-20] MEDS: HEPARIN 5,000 UNIT/1 ML VIAL SUB-Q SCH ×3 (08:08→22:17)
--- NOTE | 2020-09-20 09:02 | Progress Note ---
Assessment and Plan Assessment and plan: 84-year-old male sent from dialysis for rapid heart rate. Because of the fast heart rate dialysis was not done no chest pain no shortness of breath. Episode of palpitations are present. No exacerbating or relieving factors. Diffuse abdominal pain. No diarrhea. Constipation. (1) SIRS (systemic inflammatory response syndrome) Current Visit: Yes Status: Acute Plan to address problem: Patient has high white count and elevated lactic acid IV fluids and IV antibiotics for now (2) Colitis Current Visit: Yes Status: Acute Plan to address problem: Etiology unclear High white count Patient started on IV Zosyn GI consult requested To samples for culture sensitivity and C. difficile restaurant (3) Acute kidney injury Current Visit: Yes Status: Acute Plan to address problem: IV fluids for now There is apparently on dialysis Will call the [facility] to find out will order principal secretary and resume hemodialysis if necessary Creatinine is low 2.2 and not consistent with end-stage renal disease (4) Hypertension Current Visit: Yes Status: Acute (5) Hypertension Current Visit: Yes Status: Chronic Qualifiers: Hypertension type: primary hypertension Qualified Code(s): I10 - Essential (primary) hypertension Plan to address problem: Antihypertensives on hold (6) DVT prophylaxis Current Visit: Yes Status: Acute Plan to address problem: On heparin and GI prophylaxis Severe Malnutrition 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 Nephrology and GI consulted, Continue iv Zosyn creatinine improved 2.0 today from 2.2 yesterday 09/16/20 Patient with acute colitis, acute kidney injury. He is followed by GI and nephrology. Cr 1.9, very slight improvement 09/17/20 Patient diagnosed with c.diff colitis. Started on Flagyl, Cr 2.0 today 09/18/20 Patient with c.diff colitis and URMILA. Now on Vancomycin for c diff. ID Specialist, Nephrology and GI following. Cr improving 1.6 today. 09/19/20 Patient with c.diff colitis, acute kidney injury and severe malnutrit ion. Creatinine improving down to 1.6 today. He is on Vancomycin and Flagyl for c. diff colitis. Potassium low today. Give K- dur 40meq X 1 dose 09/20/20 Patient was sent in from dialysis unit because of rapid heart rate. He was seen here. Diagnosed with c.diff colitis, acute kidney injury and severe malnutrition. Creatinine was improving but higher today at 1.5. He is also on Bicarb drip for metabolic acidosis. Nephrology, Dr. Gonzalez following He is on po Vancomycin for c. diff colitis. Dr. Montes recommends vanco po X 10 more days from yesterday as per notes. Levaquin discontinued by ID. Not ready for discharge today because of rising Cr. Hopefully dc in 1-2 days if Cr normal History Interval history: Patient sent in for hypotension, found to have c.diff colitis and URMILA No fever Creatinine worse today 1.5 Hospitalist Physical - Physical exam Narrative exam: Gen: Not in acute distress, lying in bed,malnourished HEENT: Normocephalic, atraumatic Neck : supple, no JVD Heart:S1 and S2 reg, no murmurs, rubs or gallop Lungs: clear to auscultation bilaterally, no wheeze Abd: Soft , mild tenderness, non distended, normal bowel sounds Ext: No edema, no clubbing, no cyanosis Neuro: Awake, alert, - Constitutional Vitals: Temp Pulse Resp BP Pulse Ox 98.3 F 67 16 104/62 94 09/20/20 07:35 09/20/20 07:35 09/20/20 07:35 09/20/20 07:35 09/20/20 07:35 General appearance: Present: no acute distress Results - Labs CBC & Chem 7: 09/20/20 04:10 09/20/20 04:10 Labs: Laboratory Last Values WBC 6.7 K/mm3 (4.5-11.0) 09/20/20 04:10 RBC 4.47 M/mm3 (3.65-5.03) 09/20/20 04:10 Hgb 14.4 gm/dl (11.8-15.2) 09/20/20 04:10 Hct 42.1 % (35.5-45.6) 09/20/20 04:10 MCV 94 fl (84-94) 09/20/20 04:10 MCH 32 pg (28-32) 09/20/20 04:10 MCHC 34 % (32-34) 09/20/20 04:10 RDW 14.3 % (13.2-15.2) 09/20/20 04:10 Plt Count 86 K/mm3 (140-440) L 09/20/20 04:10 Add Manual Diff Complete 09/15/20 06:46 Total Counted 100 09/15/20 06:46 Seg Neutrophils % Multi Punch Operator 09/15/20 06:46 Seg Neuts % (Manual) 90.0 % (40.0-70.0) H 09/15/20 06:46 Band Neutrophils % 8.0 % 09/15/20 06:46 Lymphocytes % (Manual) 1.0 % (13.4-35.0) L 09/15/20 06:46 Monocytes % (Manual) 1.0 % (0.0-7.3) 09/14/20 12:28 Metamyelocytes % 1.0 % 09/15/20 06:46 Nucleated RBC % 1.0 % (0.0-0.9) H 09/15/20 06:46 Seg Neutrophils # Man 13.7 K/mm3 (1.8-7.7) H 09/15/20 06:46 Band Neutrophils # 1.2 K/mm3 09/15/20 06:46 Lymphocytes # (Manual) 0.2 K/mm3 (1.2-5.4) L 09/15/20 06:46 Abs React Lymphs (Man) 0.0 K/mm3 09/15/20 06:46 Monocytes # (Manual) 0.0 K/mm3 (0.0-0.8) 09/15/20 06:46 Eosinophils # (Manual) 0.0 K/mm3 (0.0-0.4) 09/15/20 06:46 Basophils # (Manual) 0.0 K/mm3 (0.0-0.1) 09/15/20 06:46 Metamyelocytes # 0.2 K/mm3 09/15/20 06:46 Myelocytes # 0.0 K/mm3 09/15/20 06:46 Promyelocytes # 0.0 K/mm3 09/15/20 06:46 Blast Cells # 0.0 K/mm3 09/15/20 06:46 WBC Morphology Not Reportable 09/15/20 06:46 Hypersegmented Neuts Not Reportable 09/15/20 06:46 Hyposegmented Neuts Not Reportable 09/15/20 06:46 Hypogranular Neuts Not Reportable 09/15/20 06:46 Smudge Cells Not Reportable 09/15/20 06:46 Toxic Granulation Not Reportable 09/15/20 06:46 Toxic Vacuolation Not Reportable 09/15/20 06:46 Dohle Bodies Not Reportable 09/15/20 06:46 Pelger-Huet Anomaly Not Reportable 09/15/20 06:46 Liliana Rods Not Reportable 09/15/20 06:46 Platelet Estimate Consistent w auto 09/15/20 06:46 Clumped Platelets Not Reportable 09/15/20 06:46 Plt Clumps, EDTA Not Reportable 09/15/20 06:46 Large Platelets Not Reportable 09/15/20 06:46 Giant Platelets Not Reportable 09/15/20 06:46 Platelet Satelliting Not Reportable 09/15/20 06:46 Plt Morphology Comment Not Reportable 09/15/20 06:46 RBC Morphology Normal 09/15/20 06:46 Dimorphic RBCs Not Reportable 09/15/20 06:46 Polychromasia Not Reportable 09/15/20 06:46 Hypochromasia Not Reportable 09/15/20 06:46 Poikilocytosis Not Reportable 09/15/20 06:46 Anisocytosis Not Reportable 09/15/20 06:46 Microcytosis Not Reportable 09/15/20 06:46 Macrocytosis Not Reportable 09/15/20 06:46 Spherocytes Not Reportable 09/15/20 06:46 Pappenheimer Bodies Not Reportable 09/15/20 06:46 Sickle Cells Not Reportable 09/15/20 06:46 Target Cells Not Reportable 09/15/20 06:46 Tear Drop Cells Not Reportable 09/15/20 06:46 Ovalocytes Not Reportable 09/15/20 06:46 Helmet Cells Not Reportable 09/15/20 06:46 Cee-[place]ow[place] Bodies Not Reportable 09/15/20 06:46 [place] Rings Not Reportable 09/15/20 06:46 Maggi Cells Not Reportable 09/15/20 06:46 Bite Cells Not Reportable 09/15/20 06:46 Crenated Cell Not Reportable 09/15/20 06:46 Elliptocytes Not Reportable 09/15/20 06:46 Acanthocytes (Spur) Not Reportable 09/15/20 06:46 Rouleaux Not Reportable 09/15/20 06:46 Hemoglobin C Crystals Not Reportable 09/15/20 06:46 Schistocytes Not Reportable 09/15/20 06:46 Malaria parasites Not Reportable 09/15/20 06:46 Juan Antonio Bodies Not Reportable 09/15/20 06:46 Hem Pathologist Commnt No 09/15/20 06:46 Sodium 135 mmol/L (137-145) L 09/20/20 04:10 Potassium 4.0 mmol/L (3.6-5.0) 09/20/20 04:10 Chloride 99.8 mmol/L (98-107) 09/20/20 04:10 Carbon Dioxide 27 mmol/L (22-30) 09/20/20 04:10 Anion Gap 12 mmol/L 09/20/20 04:10 BUN 40 mg/dL (9-20) H 09/20/20 04:10 Creatinine 1.5 mg/dL (0.8-1.3) H 09/20/20 04:10 Estimated GFR 54 ml/min 09/20/20 04:10 BUN/Creatinine Ratio 27 % 09/20/20 04:10 Glucose 107 mg/dL (75-100) H 09/20/20 04:10 POC Glucose 114 mg/dL (70-105) H 09/16/20 07:40 Hemoglobin A1c 5.4 % (4-6) 09/14/20 12:28 Lactic Acid 4.00 mmol/L (0.7-2.0) H* 09/14/20 18:31 Calcium 7.3 mg/dL (8.4-10.2) L 09/20/20 04:10 Phosphorus 2.60 mg/dL (2.5-4.5) 09/19/20 04:19 Magnesium 3.00 mg/dL (1.7-2.3) H 09/17/20 08:10 Total Bilirubin 0.50 mg/dL (0.1-1.2) 09/15/20 06:46 AST 31 units/L (5-40) 09/15/20 06:46 ALT 21 units/L (7-56) 09/15/20 06:46 Alkaline Phosphatase 92 units/L (35-129) 09/15/20 06:46 Total Protein 5.0 g/dL (6.3-8.2) L 09/15/20 06:46 Albumin 1.9 g/dL (3.9-5) L 09/15/20 06:46 Albumin/Globulin Ratio 0.6 % 09/15/20 06:46 Urine Color Martha (Yellow) 09/14/20 Unknown Urine Turbidity Cloudy (Clear) 09/14/20 Unknown Urine pH 5.0 (5.0-7.0) 09/14/20 Unknown Ur Specific [place] 1.019 (1.003-1.030) 09/14/20 Unknown Urine Protein 100 mg/dl mg/dL (Negative) 09/14/20 Unknown Urine Glucose (UA) 50 mg/dL (Negative) 09/14/20 Unknown Urine Ketones Tr mg/dL (Negative) 09/14/20 Unknown Urine Blood Lg (Negative) 09/14/20 Unknown Urine Nitrite Neg (Negative) 09/14/20 Unknown Urine Bilirubin Neg (Negative) 09/14/20 Unknown Urine Urobilinogen < 2.0 mg/dL (<2.0) 09/14/20 Unknown Ur Leukocyte Esterase Tr (Negative) 09/14/20 Unknown Urine WBC (Auto) < 1.0 /HPF (0.0-6.0) 09/14/20 Unknown Urine RBC (Auto) < 1.0 /HPF (0.0-6.0) 09/14/20 Unknown U Epithel Cells (Auto) 3.0 /HPF (0-13.0) 09/14/20 Unknown C. difficile Tox (PCR) Positive (Negative) 09/16/20 08:40 Microbiology: Microbiology 09/14/20 18:31 Peripheral/Venous Blood Culture - Final NO GROWTH AFTER 5 DAYS 09/14/20 18:31 Peripheral/Venous Blood Culture - Final NO GROWTH AFTER 5 DAYS [place]/IV: Voiding Method Condom Catheter Active Medications - Current Medications Current Medications: Generic Name Dose Route Start Last Admin Trade Name Freq PRN Reason Stop Dose Admin Acetaminophen 650 mg 09/14/20 22:00 Acetaminophen 325 Mg Tab PO Q4H PRN Pain MILD(1-3)/Fever >100.5/GUY Donepezil HCl 10 mg 09/14/20 22:00 09/20/20 08:07 Donepezil 10 Mg Tab PO 10 mg QDAY JEVON Administration Famotidine 20 mg 09/14/20 22:00 09/20/20 08:07 Famotidine 20 Mg/2 Ml Inj IV 20 mg QAM JEVON Administration Heparin Sodium (Porcine) 5,000 unit 09/14/20 22:00 09/20/20 08:08 Heparin 5,000 Unit/1 Ml Vial SUB-Q 5,000 unit Q12HR JEVON Administration Hydromorphone HCl 0.5 mg 09/14/20 22:00 Hydromorphone 1 Mg/1 Ml Inj IV Q3H PRN Pain , Severe (7-10) Sodium Bicarbonate 75 meq/ 1,075 mls @ 75 mls/hr 09/16/20 09:00 09/19/20 17:35 Sterile Water IV 75 mls/hr DIRECT JEVON Administration Metoclopramide HCl 5 mg 09/14/20 23:00 Metoclopramide 10 Mg/2 Ml Inj IV Q6H PRN Nausea And Vomiting Mirtazapine 15 mg 09/16/20 22:00 09/19/20 21:32 Mirtazapine 15 Mg Tab PO 15 mg QHS JEVON Administration Morphine Sulfate 2 mg 09/14/20 22:00 Morphine 2 Mg/1 Ml Inj IV Q4H PRN Pain, Moderate (4-6) Ondansetron HCl 4 mg 09/14/20 22:00 Ondansetron 4 Mg/2 Ml Inj IV Q8H PRN Nausea And Vomiting Sodium Chloride 10 ml 09/14/20 22:00 09/19/20 22:00 Sodium Chloride 0.9% 10 Ml Flush Syringe IV Not Given BID JEVON Sodium Chloride 10 ml 09/14/20 22:00 Sodium Chloride 0.9% 10 Ml Flush Syringe IV PRN PRN LINE FLUSH Tamsulosin HCl 0.4 mg 09/14/20 22:00 09/20/20 08:08 Tamsulosin 0.4 Mg Cap PO 0.4 mg QDAY JEVON Administration Trazodone HCl 50 mg 09/14/20 22:00 09/20/20 08:08 Trazodone 50 Mg Tab PO 50 mg QDAY JEVON Administration Vancomycin HCl 125 mg 09/19/20 14:01 09/20/20 05:48 Vancomycin 250 Mg/10 Ml Oral Liqd PO 125 mg Q6HR JEVON Administration Protocol Nutrition/Malnutrition Assess - Dietary Evaluation Nutrition/Malnutrition Findings: Nutrition Notes Start: 09/15/20 13: 27 Freq: Status: Active Protocol: Document 09/17/20 12:38 (Rec: 09/17/20 12:44 [email or web address]) Nutrition Notes Initial or Follow up Reassessment Current Diagnosis Acute Kidney Injury, Hypertension Other Pertinent Diagnosis SIRS, colitis Current Diet clear liquids Labs/Tests Na 148 BUN 70 Cr 2 Phos 2.4 Mg 3 Pertinent Medications reviewed Height 5 ft 6 in Weight 49 kg [place] Body Weight (kg) 64.54 BMI 17.4 Weight Status Underweight Subjective/Other Information Per RN, pt tolerating clear liquids and drank 1 ONS. Percent of energy/protein needs met: 62%/41% Burn Absent Trauma Absent GI Symptoms Diarrhea Current % PO Good (75-100%) Minimum of two criteria Yes Body Fat Depletion Mild depletion (non-severe) Muscle Mass Mild Depletion (non-severe) #1 Nutrition Diagnosis Malnutrition Diagnosis Progress(for reassessment Continues documentation) Is patient on ventilator? No Is Patient Ambulatory and/or Out of Bed No REE-([facility]-confined to bed) 1342.968 Calculation Used for Recommendations [facility] Additional Notes Protein: (1.2-1.5 g/kg) 58-73g Fluid: 1 ml/kcal Nutrition Intervention Change Diet Order: advance as able Add Supplement/Snack (indicate name/kcal Ensure Clear TID /protein ) Provides kCal: 720 Provides Protein (gm) 24 Goal #1 Meet needs as best as possible Goal #2 Weight gain/maintenance Anticipated Discharge Needs: cardiac with ONS daily Follow-Up By: 09/20/20 Additional Comments F/u: diet advancement and intakes
--- NOTE | 2020-09-20 13:56 | Progress Note ---
Assessment and Plan 1. Acute kidney injury: Vasomotor UMRILA in the setting of volume depletion and hypotension. CT abdomen negative for hydro. Urine studies ordered. Baseline renal function is unknown. Most likely background CKD. Monitor renal function. SLight increase in the Creatinine level since yesterday. Avoid nephrotoxic agents. Meds dosage based on GFR. 2. FEN: Metabolic acidosis, on bicarb drip, monitor. Hypernatremia, improved. Monitor lytes. 3. Severe sepsis secondary to severe C. difficile colitis On Vancomycin. Followed by ID. 4. Hypertension: BP is controlled. Adjust meds as needed. Monitor. 5. Dementia. Subjective: Patient was seen and examined at the bedside. D/w RN. Examination: General appearance: well-developed, emaciated, appears stated age, not in distress, restrains HEENT: ATNC, pupils equal Neck: Trachea midline Respiratory: ctab Cardiology: S1S2, no murmur Gastrointestinal: soft, bowel sounds heard, not tender Integumentary: warm and dry Neurologic: somnolent, able to move extremities Ext: no edema Subjective Date of service: 09/20/20 Objective - Vital Signs Vital signs: Vital Signs - 12hr 09/20/20 09/20/20 09/20/20 03:00 05:26 07:35 Temperature 97.5 F L 98.3 F Pulse Rate 66 67 Respiratory 18 16 Rate Blood Pressure 109/47 104/62 Blood Pressure [Left] O2 Sat by Pulse 100 93 94 Oximetry 09/20/20 11:50 Temperature 98.3 F Pulse Rate 67 Respiratory 16 Rate Blood Pressure Blood Pressure 104/62 [Left] O2 Sat by Pulse 95 Oximetry - Lab 09/20/20 04:10 09/20/20 04:10 Most recent lab results Calcium 7.3 mg/dL (8.4-10.2) L 09/20/20 04:10 Phosphorus 2.60 mg/dL (2.5-4.5) 09/19/20 04:19 Magnesium 3.00 mg/dL (1.7-2.3) H 09/17/20 08:10 Medications & Allergies - Medications Allergies/Adverse Reactions: Allergies No Known Allergies Allergy (Unverified 09/02/20 09:20) Home Medications: Home Medications Medication Instructions Recorded Confirmed Last Taken Type Donepezil HCl [Donepezil HCl Odt] 10 mg PO QDAY 09/14/20 09/14/20 Unknown History Mirtazapine [Remeron 15mg TAB] 15 mg PO QHS 09/14/20 09/14/20 Unknown History Tamsulosin [Flomax] 0.4 mg PO QDAY 09/14/20 09/14/20 Unknown History Trazodone HCl 50 mg PO QDAY 09/14/20 09/14/20 Unknown History Active Medications: Generic Name Dose Route Start Last Admin Trade Name Freq PRN Reason Stop Dose Admin Acetaminophen 650 mg 09/14/20 22:00 Acetaminophen 325 Mg Tab PO Q4H PRN Pain MILD(1-3)/Fever >100.5/GUY Donepezil HCl 10 mg 09/14/20 22:00 09/20/20 08:07 Donepezil 10 Mg Tab PO 10 mg QDAY JEVON Administration Famotidine 20 mg 09/14/20 22:00 09/20/20 08:07 Famotidine 20 Mg/2 Ml Inj IV 20 mg QAM JEVON Administration Heparin Sodium (Porcine) 5,000 unit 09/14/20 22:00 09/20/20 08:08 Heparin 5,000 Unit/1 Ml Vial SUB-Q 5,000 unit Q12HR JEVON Administration Hydromorphone HCl 0.5 mg 09/14/20 22:00 Hydromorphone 1 Mg/1 Ml Inj IV Q3H PRN Pain , Severe (7-10) Sodium Bicarbonate 75 meq/ 1,075 mls @ 75 mls/hr 09/16/20 09:00 09/19/20 17: 35 Sterile Water IV 75 mls/hr DIRECT JEVON Administration Metoclopramide HCl 5 mg 09/14/20 23:00 Metoclopramide 10 Mg/2 Ml Inj IV Q6H PRN Nausea And Vomiting Mirtazapine 15 mg 09/16/20 22:00 09/19/20 21:32 Mirtazapine 15 Mg Tab PO 15 mg QHS JEVON Administration Morphine Sulfate 2 mg 09/14/20 22:00 Morphine 2 Mg/1 Ml Inj IV Q4H PRN Pain, Moderate (4-6) Ondansetron HCl 4 mg 09/14/20 22:00 Ondansetron 4 Mg/2 Ml Inj IV Q8H PRN Nausea And Vomiting Sodium Chloride 10 ml 09/14/20 22:00 09/19/20 22:00 Sodium Chloride 0.9% 10 Ml Flush Syringe IV Not Given BID JEVON Sodium Chloride 10 ml 09/14/20 22:00 Sodium Chloride 0.9% 10 Ml Flush Syringe IV PRN PRN LINE FLUSH Tamsulosin HCl 0.4 mg 09/14/20 22:00 09/20/20 08:08 Tamsulosin 0.4 Mg Cap PO 0.4 mg QDAY JEVON Administration Trazodone HCl 50 mg 09/14/20 22:00 09/20/20 08:08 Trazodone 50 Mg Tab PO 50 mg QDAY JEVON Administration Vancomycin HCl 125 mg 09/19/20 14:01 09/20/20 05:48 Vancomycin 250 Mg/10 Ml Oral Liqd PO 125 mg Q6HR JEVON Administration Protocol
[2020-09-20] MEDS: MIRTAZAPINE 15 MG TAB PO SCH (22:17)
[2020-09-21] MEDS: VANCOMYCIN 250 MG/10 ML ORAL LIQD PO SCH ×5 (01:36→23:24)
[2020-09-21] MEDS: SODIUM BICARBONATE 75 MEQ in WATER FOR INJECTION (PF) 1,000 ML IV SCH (04:57)
[2020-09-21 06:34] LABS: Calcium 7.7 mg/dL (8.4-10.2)
--- NOTE | 2020-09-21 09:11 | Progress Note ---
Assessment and Plan 1. Acute kidney injury: Vasomotor URMILA in the setting of volume depletion and hypotension. CT abdomen negative for hydro. Urine studies ordered. Baseline renal function is unknown. Most likely background CKD. Monitor renal function. BUN level improving. Creatinine level same as yesterday. Avoid nephrotoxic agents. Meds dosage based on GFR. 2. FEN: Metabolic acidosis, improved, monitor. Hypernatremia, improved. Monitor lytes. 3. Severe sepsis secondary to severe C. difficile colitis On Vancomycin. Followed by ID. 4. Hypertension: BP is controlled. Adjust meds as needed. Monitor. 5. Dementia. Subjective: Patient was seen and examined at the bedside. Examination: General appearance: well-developed, emaciated, appears stated age, not in distress HEENT: ATNC, pupils equal Neck: Trachea midline Respiratory: ctab Cardiology: S1S2, no murmur Gastrointestinal: soft, bowel sounds heard, not tender Integumentary: warm and dry Neurologic: somnolent, able to move extremities Ext: no edema Subjective Date of service: 09/21/20 Objective - Vital Signs Vital signs: Vital Signs - 12hr 09/20/20 09/21/20 09/21/20 23:51 03:00 05:44 Temperature 97.5 F L 97.6 F Pulse Rate 73 71 Respiratory 20 18 Rate Blood Pressure 98/72 Blood Pressure 98/72 [Left] O2 Sat by Pulse 96 97 95 Oximetry 09/21/20 07:37 Temperature 97.7 F Pulse Rate 52 L Respiratory 16 Rate Blood Pressure 116/74 Blood Pressure [Left] O2 Sat by Pulse 97 Oximetry - Lab 09/20/20 04:10 09/21/20 05:48 Most recent lab results Calcium 7.7 mg/dL (8.4-10.2) L 09/21/20 05:48 Phosphorus 2.60 mg/dL (2.5-4.5) 09/19/20 04:19 Magnesium 3.00 mg/dL (1.7-2.3) H 09/17/20 08:10 Medications & Allergies - Medications Allergies/Adverse Reactions: Allergies No Known Allergies Allergy (Unverified 09/02/20 09:20) Home Medications: Home Medications Medication Instructions Recorded Confirmed Last Taken Type Donepezil HCl [Donepezil HCl Odt] 10 mg PO QDAY 09/14/20 09/14/20 Unknown History Mirtazapine [Remeron 15mg TAB] 15 mg PO QHS 09/14/20 09/14/20 Unknown History Tamsulosin [Flomax] 0.4 mg PO QDAY 09/14/20 09/14/20 Unknown History Trazodone HCl 50 mg PO QDAY 09/14/20 09/14/20 Unknown History Vancomycin HCl 125 mg PO Q6H #24 capsule 09/21/20 Unknown Rx Active Medications: Generic Name Dose Route Start Last Admin Trade Name Freq PRN Reason Stop Dose Admin Acetaminophen 650 mg 09/14/20 22:00 Acetaminophen 325 Mg Tab PO Q4H PRN Pain MILD(1-3)/Fever >100.5/GUY Donepezil HCl 10 mg 09/14/20 22:00 09/20/20 18:24 Donepezil 10 Mg Tab PO Not Given QDAY JEVON Famotidine 20 mg 09/14/20 22:00 09/20/20 10:00 Famotidine 20 Mg/2 Ml Inj IV Not Given QAM [facility] Heparin Sodium (Porcine) 5,000 unit 09/14/20 22:00 09/20/20 22:17 Heparin 5,000 Unit/1 Ml Vial SUB-Q 5,000 unit Q12HR JEVON Administration Hydromorphone HCl 0.5 mg 09/14/20 22:00 Hydromorphone 1 Mg/1 Ml Inj IV Q3H PRN Pain , Severe (7-10) Sodium Bicarbonate 75 meq/ 1,075 mls @ 75 mls/hr 09/16/20 09:00 09/21/20 04:57 Sterile Water IV 75 mls/hr DIRECT JEVON Administration Metoclopramide HCl 5 mg 09/14/20 23:00 Metoclopramide 10 Mg/2 Ml Inj IV Q6H PRN Nausea And Vomiting Mirtazapine 15 mg 09/16/20 22:00 09/20/20 22:17 Mirtazapine 15 Mg Tab PO 15 mg QHS JEVON Administration Morphine Sulfate 2 mg 09/14/20 22:00 Morphine 2 Mg/1 Ml Inj IV Q4H PRN Pain, Moderate (4-6) Ondansetron HCl 4 mg 09/14/20 22:00 Ondansetron 4 Mg/2 Ml Inj IV Q8H PRN Nausea And Vomiting Sodium Chloride 10 ml 09/14/20 22:00 09/20/20 22:17 Sodium Chloride 0.9% 10 Ml Flush Syringe IV 10 ml BID JEVON Administration Sodium Chloride 10 ml 09/14/20 22:00 Sodium Chloride 0.9% 10 Ml Flush Syringe IV PRN PRN LINE FLUSH Tamsulosin HCl 0.4 mg 09/14/20 22:00 09/20/20 10:00 Tamsulosin 0.4 Mg Cap PO Not Given QDAY JEVON Trazodone HCl 50 mg 09/14/20 22:00 09/20/20 10:00 Trazodone 50 Mg Tab PO Not Given QDAY JEVON Vancomycin HCl 125 mg 09/19/20 14:01 09/21/20 07:06 Vancomycin 250 Mg/10 Ml Oral Liqd PO 125 mg Q6HR JEVON Administration Protocol
[2020-09-21] MEDS: SODIUM CHLORIDE 0.9% 1000 ML 1,000 ML IV SCH ×2 (10:24→22:21)
--- NOTE | 2020-09-21 12:21 | Discharge Summary ---
Providers - Providers Date of Admission: 09/14/20 19:33 Attending physician: MADHU MATHUR MD 09/14/20 22:00 Consult to Physician [CONS] Routine Comment: Consulting Provider: JOVANY CONN Physician Instructions: Reason For Exam: Colitis 09/15/20 07:53 Consult to Physician [CONS] Routine Comment: Consulting Provider: MATTHEW SMILEY Physician Instructions: Reason For Exam: URMILA 09/16/20 13:43 Consult to Dietitian/Nutrition [CONS] Routine Physician Instructions: Reason For Exam: Reason for Consult: Malnutrition 09/17/20 12:48 Consult to Physician [CONS] Routine Comment: Consulting Provider: SILVIA YATES Physician Instructions: Reason For Exam: C diff colitis 09/20/20 09:16 Physical Therapy Evaluation and Treat [CONS] Urgent Comment: Reason For Exam: To assess mobility status: PT to eval & treat 09/20/20 09:19 Occupational Therapy Evaluate and Treat [CONS] Urgent Comment: Reason For Exam: To assess level of ADL status: OT to eval & treat Hospitalization Reason for admission: Hypotension Condition: Fair Hospital course: 84-year-old male sent from dialysis for rapid heart rate. Patient sent in for hypotension, found to have c.diff colitis and URMILA, Because of the fast heart rate dialysis was not done no chest pain no shortness of breath. Episode of palpitations are present. No exacerbating or relieving factors. Diffuse abdominal pain. No diarrhea. Constipation. (1) SIRS (systemic inflammatory response syndrome) Current Visit: Yes Status: Acute Plan to address problem: Patient has high white count and elevated lactic acid IV fluids and IV antibiotics for now (2) Colitis Current Visit: Yes Status: Acute Plan to address problem: Etiology unclear High white count Patient started on IV Zosyn GI consult requested To samples for culture sensitivity and C. difficile restaurant (3) Acute kidney injury Current Visit: Yes Status: Acute Plan to address problem: IV fluids for now There is apparently on dialysis Will call the shelter to find out will order professional engineer and resume hemodialysis if necessary Creatinine is low 2.2 and not consistent with end-stage renal disease (4)Hypertension Current Visit: Yes Status: Chronic Qualifiers: Hypertension type: primary hypertension Qualified Code(s): I10 - Essential (primary) hypertension Plan to address problem: Antihypertensives on hold (5) Severe Malnutrition 09/15/20 Patient with acute colitis, acute kidney injury. Nephrology and GI consulted, Continue iv Zosyn creatinine improved 2.0 today from 2.2 yesterday 09/16/20 Patient with acute colitis, acute kidney injury. He is followed by GI and nephrology. Cr 1.9, very slight improvement 09/17/20 Patient diagnosed with c.diff colitis. Started on Flagyl, Cr 2.0 today 09/18/20 Patient with c.diff colitis and URMILA. Now on Vancomycin for c diff. ID Specialist, Nephrology and GI following. Cr improving 1.6 today. 09/19/20 Patient with c.diff colitis, acute kidney injury and severe malnutrition. Creatinine improving down to 1.6 today. He is on Vancomycin and Flagyl for c. diff colitis. Potassium low today. Give K- dur 40meq X 1 dose 09/20/20 Patient was sent in from dialysis unit because of rapid heart rate. He was seen here. Diagnosed with c.diff colitis, acute kidney injury and severe malnutrition. Creatinine was improving but higher today at 1.5. He is also on Bicarb drip for metabolic acidosis. Nephrology, Dr. Smiley following He is on po Vancomycin for c. diff colitis. Dr. Yates recommends vanco po X 10 more days from yesterday as per notes. Levaquin discontinued by ID. Not ready for discharge today because of rising Cr. Hopefully dc in 1-2 days if Cr normal 09/21: Patient remains clinically stable this morning. Discussed with professional engineer stable for patient to be discharged. Patient will complete vancomycin for 10 days. From my understanding patient is going to have hospice at the facility where is going. Disposition: DC-50 TO HOSPICE (HOME) Final Discharge Diagnosis (Prints w/discharge instructions): C. difficile colitis Time spent for discharge: 35 mins Core Measure Documentation - Palliative Care Palliative Care/ Comfort Measures: Palliative Care/Comfort Measures - Core Measures Any of the following diagnoses?: none Exam - Physical Exam Narrative exam: Gen: Not in acute distress, lying in bed,malnourished HEENT: Normocephalic, atraumatic Neck : supple, no JVD Heart:S1 and S2 reg, no murmurs, rubs or gallop Lungs: clear to auscultation bilaterally, no wheeze Abd: Soft , mild tenderness, non distended, normal bowel sounds Ext: No edema, no clubbing, no cyanosis Neuro: Awake, alert, - Constitutional Vitals: Temp Pulse Resp BP Pulse Ox 97.7 F 52 L 16 116/74 97 09/21/20 07:37 09/21/20 07:37 09/21/20 07:37 09/21/20 07:37 09/21/20 07:37 Plan Activity: advance as tolerated, fall precautions Diet: renal Special Instructions: record daily weights, record daily BP diary Follow up with: JAVY HECTOR [Other] - 3-5 Days MATTHEW SMILEY MD [Staff Physician] - 7 Days SILVIA YATES MD [Staff Physician] - 7 Days Prescriptions: Vancomycin HCl 125 mg PO Q6H #24 capsule
[2020-09-21] MEDS: HEPARIN 5,000 UNIT/1 ML VIAL SUB-Q SCH ×2 (12:58→22:22)
[2020-09-21] MEDS: traZODone 50 MG TAB PO SCH (12:59)
[2020-09-21] MEDS: TAMSULOSIN 0.4 MG CAP PO SCH (12:59)
[2020-09-21] MEDS: DONEPEZIL 10 MG TAB PO SCH (13:00)
[2020-09-21] MEDS: MIRTAZAPINE 15 MG TAB PO SCH (22:22)
[2020-09-21] MEDS: FAMOTIDINE 20 MG/2 ML INJ IV SCH (23:20)
[2020-09-22] MEDS: VANCOMYCIN 250 MG/10 ML ORAL LIQD PO SCH ×2 (06:19→12:52)
--- NOTE | 2020-09-22 08:55 | Progress Note ---
Assessment and Plan 1. Acute kidney injury: Vasomotor URMILA in the setting of volume depletion and hypotension. CT abdomen negative for hydro. Urine studies ordered. Baseline renal function is unknown. Most likely background CKD. Monitor renal function. BUN level improving. Creatinine level better. Avoid nephrotoxic agents. Meds dosage based on GFR. 2. FEN: Metabolic acidosis, improved, monitor. Hypernatremia, improved. Monitor lytes. 3. Severe sepsis secondary to severe C. difficile colitis On Vancomycin. Followed by ID. 4. Hypertension: BP is controlled. Adjust meds as needed. Monitor. 5. Dementia. Subjective: Patient was seen and examined at the bedside. Examination: General appearance: well-developed, emaciated, appears stated age, not in distress HEENT: ATNC, pupils equal Neck: Trachea midline Respiratory: ctab Cardiology: S1S2, no murmur Gastrointestinal: soft, bowel sounds heard, not tender Integumentary: warm and dry Neurologic: somnolent, able to move extremities Ext: no edema Subjective Date of service: 09/22/20 Objective - Vital Signs Vital signs: Vital Signs - 12hr 09/22/20 09/22/20 09/22/20 00:23 04:41 05:04 Temperature 97.4 F L 97.6 F Pulse Rate 56 L 56 L Respiratory 18 18 16 Rate Blood Pressure 114/68 Blood Pressure 113/86 [Left] O2 Sat by Pulse 94 98 Oximetry - Lab 09/20/20 04:10 09/21/20 05:48 Most recent lab results Calcium 7.7 mg/dL (8.4-10.2) L 09/21/20 05:48 Phosphorus 2.60 mg/dL (2.5-4.5) 09/19/20 04:19 Magnesium 3.00 mg/dL (1.7-2.3) H 09/17/20 08:10 Medications & Allergies - Medications Allergies/Adverse Reactions: Allergies No Known Allergies Allergy (Unverified 09/02/20 09:20) Home Medications: Home Medications Medication Instructions Recorded Confirmed Last Taken Type Donepezil HCl [Donepezil HCl Odt] 10 mg PO QDAY 09/14/20 09/14/20 Unknown History Mirtazapine [Remeron 15mg TAB] 15 mg PO QHS 09/14/20 09/14/20 Unknown History Tamsulosin [Flomax] 0.4 mg PO QDAY 09/14/20 09/14/20 Unknown History Trazodone HCl 50 mg PO QDAY 09/14/20 09/14/20 Unknown History Vancomycin HCl 125 mg PO Q6H #24 capsule 09/21/20 Unknown Rx Active Medications: Generic Name Dose Route Start Last Admin Trade Name Freq PRN Reason Stop Dose Admin Acetaminophen 650 mg 09/14/20 22:00 Acetaminophen 325 Mg Tab PO Q4H PRN Pain MILD(1-3)/Fever >100.5/GUY Donepezil HCl 10 mg 09/14/20 22:00 09/21/20 13:00 Donepezil 10 Mg Tab PO 10 mg QDAY JEVON Administration Famotidine 20 mg 09/22/20 10:00 Famotidine 20 Mg Tab PO DAILY JEVON Heparin Sodium (Porcine) 5,000 unit 09/14/20 22:00 09/21/20 22:22 Heparin 5,000 Unit/1 Ml Vial SUB-Q 5,000 unit Q12HR JEVON Administration Hydromorphone HCl 0.5 mg 09/14/20 22:00 Hydromorphone 1 Mg/1 Ml Inj IV Q3H PRN Pain , Severe (7-10) Sodium Chloride 1,000 mls @ 75 mls/hr 09/21/20 09:30 09/21/20 22:21 Nacl 0.9% 1000 Ml IV 75 mls/hr DIRECT JEVON Administration Metoclopramide HCl 5 mg 09/14/20 23:00 09/21/20 12:58 Metoclopramide 10 Mg/2 Ml Inj IV 5 mg Q6H PRN Administration Nausea And Vomiting Mirtazapine 15 mg 09/16/20 22:00 09/21/20 22:22 Mirtazapine 15 Mg Tab PO 15 mg QHS JEVON Administration Morphine Sulfate 2 mg 09/14/20 22:00 Morphine 2 Mg/1 Ml Inj IV Q4H PRN Pain, Moderate (4-6) Ondansetron HCl 4 mg 09/14/20 22:00 Ondansetron 4 Mg/2 Ml Inj IV Q8H PRN Nausea And Vomiting Sodium Chloride 10 ml 09/14/20 22:00 09/21/20 23:21 Sodium Chloride 0.9% 10 Ml Flush Syringe IV 10 ml BID JEVON Administration Sodium Chloride 10 ml 09/14/20 22:00 Sodium Chloride 0.9% 10 Ml Flush Syringe IV PRN PRN LINE FLUSH Tamsulosin HCl 0.4 mg 09/14/20 22:00 09/21/20 12:59 Tamsulosin 0.4 Mg Cap PO 0.4 mg QDAY JEVON Administration Trazodone HCl 50 mg 09/14/20 22:00 09/21/20 12:59 Trazodone 50 Mg Tab PO 50 mg QDAY JEVON Administration Vancomycin HCl 125 mg 09/19/20 14:01 09/22/20 06:19 Vancomycin 250 Mg/10 Ml Oral Liqd PO 09/29/20 12:01 125 mg Q6HR JEVON Administration Protocol
[2020-09-22] MEDS ORDERED: FAMOTIDINE 20 MG TAB PO SCH (10:00)
[2020-09-22] MEDS: TAMSULOSIN 0.4 MG CAP PO SCH (10:46)
[2020-09-22] MEDS: DONEPEZIL 10 MG TAB PO SCH (10:46)
[2020-09-22] MEDS: HEPARIN 5,000 UNIT/1 ML VIAL SUB-Q SCH (10:46)
[2020-09-22] MEDS: traZODone 50 MG TAB PO SCH (10:46)
[2020-09-22] MEDS: SODIUM CHLORIDE 0.9% 1000 ML 1,000 ML IV SCH (10:46)
[2020-09-22 12:57] VITALS: BP 107/72
--- NOTE | 2020-09-22 14:19 | Progress Note ---
Assessment and Plan Assessment and plan: 84-year-old male sent from dialysis for rapid heart rate. Patient sent in for hypotension, found to have c.diff colitis and URMILA, Because of the fast heart rate dialysis was not done no chest pain no shortness of breath. Episode of palpitations are present. No exacerbating or relieving factors. Diffuse abdominal pain. No diarrhea. Constipation. (1) SIRS (systemic inflammatory response syndrome) Current Visit: Yes Status: Acute Plan to address problem: Patient has high white count and elevated lactic acid IV fluids and IV antibiotics for now (2) Colitis Current Visit: Yes Status: Acute Plan to address problem: Etiology unclear High white count Patient started on IV Zosyn GI consult requested To samples for culture sensitivity and C. difficile restaurant (3) Acute kidney injury Current Visit: Yes Status: Acute Plan to address problem: IV fluids for now There is apparently on dialysis Will call the group home to find out will order rn radiation oncology and resume hemodialysis if necessary Creatinine is low 2.2 and not consistent with end-stage renal disease (4)Hypertension Current Visit: Yes Status: Chronic Qualifiers: Hypertension type: primary hypertension Qualified Code(s): I10 - Essential (primary) hypertension Plan to address problem: Antihypertensives on hold (5) Severe Malnutrition 09/15/20 Patient with acute colitis, acute kidney injury. Nephrology and GI consulted, Continue iv Zosyn creatinine improved 2.0 today from 2.2 yesterday 09/16/20 Patient with acute colitis, acute kidney injury. He is followed by GI and nephrology. Cr 1.9, very slight improvement 09/17/20 Patient diagnosed with c.diff colitis. Started on Flagyl, Cr 2.0 today 09/18/20 Patient with c.diff colitis and URMILA. Now on Vancomycin for c diff. ID Specialist, Nephrology and GI following. Cr improving 1.6 today. 09/19/20 Patient with c.diff colitis, acute kidney injury and severe malnutrition. Creatinine improving down to 1.6 today. He is on Vancomycin and Flagyl for c. diff colitis. Potassium low today. Give K- dur 40meq X 1 dose 09/20/20 Patient was sent in from dialysis unit because of rapid heart rate. He was seen here. Diagnosed with c.diff colitis, acute kidney injury and severe malnutrition. Creatinine was improving but higher today at 1.5. He is also on Bicarb drip for metabolic acidosis. Nephrology, Dr. Gonzalez following He is on po Vancomycin for c. diff colitis. Dr. Montes recommends vanco po X 10 more days from yesterday as per notes. Levaquin discontinued by ID. Not ready for discharge today because of rising Cr. Hopefully dc in 1-2 days if Cr normal 09/21: Patient remains clinically stable this morning. Discussed with rn radiation oncology stable for patient to be discharged. Patient will complete vancomycin for 10 days. From my understanding patient is going to have hospice at the facility where is going. 09/22: Patient discharged yesterdat but facility required covid test. Awaiting result. On restriants due to dementia which is his baseline,. Continue to monitor. Discharge when facility able to accept History Interval history: Patient seen and examined, no acute distress, still with dementia Hospitalist Physical - Physical exam Narrative exam: Gen: Not in acute distress, lying in bed,malnourished HEENT: Normocephalic, atraumatic Neck : supple, no JVD Heart:S1 and S2 reg, no murmurs, rubs or gallop Lungs: clear to auscultation bilaterally, no wheeze Abd: Soft , mild tenderness, non distended, normal bowel sounds Ext: No edema, no clubbing, no cyanosis Neuro: Awake, alert, - Constitutional Vitals: Temp Pulse Resp BP Pulse Ox 97.8 F 52 L 20 107/72 100 09/22/20 11:49 09/22/20 11:49 09/22/20 11:49 09/22/20 11:49 09/22/20 11:49 General appearance: Present: no acute distress Results - Labs CBC & Chem 7: 09/20/20 04:10 09/21/20 05:48 Labs: Laboratory Last Values WBC 6.7 K/mm3 (4.5-11.0) 09/20/20 04:10 RBC 4.47 M/mm3 (3.65-5.03) 09/20/20 04:10 Hgb 14.4 gm/dl (11.8-15.2) 09/20/20 04:10 Hct 42.1 % (35.5-45.6) 09/20/20 04:10 MCV 94 fl (84-94) 09/20/20 04:10 MCH 32 pg (28-32) 09/20/20 04:10 MCHC 34 % (32-34) 09/20/20 04:10 RDW 14.3 % (13.2-15.2) 09/20/20 04:10 Plt Count 86 K/mm3 (140-440) L 09/20/20 04:10 Add Manual Diff Complete 09/15/20 06:46 Total Counted 100 09/15/20 06:46 Seg Neutrophils % Automation Developer 09/15/20 06:46 Seg Neuts % (Manual) 90.0 % (40.0-70.0) H 09/15/20 06:46 Band Neutrophils % 8.0 % 09/15/20 06:46 Lymphocytes % (Manual) 1.0 % (13.4-35.0) L 09/15/20 06:46 Monocytes % (Manual) 1.0 % (0.0-7.3) 09/14/20 12:28 Metamyelocytes % 1.0 % 09/15/20 06:46 Nucleated RBC % 1.0 % (0.0-0.9) H 09/15/20 06:46 Seg Neutrophils # Man 13.7 K/mm3 (1.8-7.7) H 09/15/20 06:46 Band Neutrophils # 1.2 K/mm3 09/15/20 06:46 Lymphocytes # (Manual) 0.2 K/mm3 (1.2-5.4) L 09/15/20 06:46 Abs React Lymphs (Man) 0.0 K/mm3 09/15/20 06:46 Monocytes # (Manual) 0.0 K/mm3 (0.0-0.8) 09/15/20 06:46 Eosinophils # (Manual) 0.0 K/mm3 (0.0-0.4) 09/15/20 06:46 Basophils # (Manual) 0.0 K/mm3 (0.0-0.1) 09/15/20 06:46 Metamyelocytes # 0.2 K/mm3 09/15/20 06:46 Myelocytes # 0.0 K/mm3 09/15/20 06:46 Promyelocytes # 0.0 K/mm3 09/15/20 06:46 Blast Cells # 0.0 K/mm3 09/15/20 06:46 WBC Morphology Not Reportable 09/15/20 06:46 Hypersegmented Neuts Not Reportable 09/15/20 06:46 Hyposegmented Neuts Not Reportable 09/15/20 06:46 Hypogranular Neuts Not Reportable 09/15/20 06:46 Smudge Cells Not Reportable 09/15/20 06:46 Toxic Granulation Not Reportable 09/15/20 06:46 Toxic Vacuolation Not Reportable 09/15/20 06:46 Dohle Bodies Not Reportable 09/15/20 06:46 Pelger-Huet Anomaly Not Reportable 09/15/20 06:46 Liliana Rods Not Reportable 09/15/20 06:46 Platelet Estimate Consistent w auto 09/15/20 06:46 Clumped Platelets Not Reportable 09/15/20 06:46 Plt Clumps, EDTA Not Reportable 09/15/20 06:46 Large Platelets Not Reportable 09/15/20 06:46 Giant Platelets Not Reportable 09/15/20 06:46 Platelet Satelliting Not Reportable 09/15/20 06:46 Plt Morphology Comment Not Reportable 09/15/20 06:46 RBC Morphology Normal 09/15/20 06:46 Dimorphic RBCs Not Reportable 09/15/20 06:46 Polychromasia Not Reportable 09/15/20 06:46 Hypochromasia Not Reportable 09/15/20 06:46 Poikilocytosis Not Reportable 09/15/20 06:46 Anisocytosis Not Reportable 09/15/20 06:46 Microcytosis Not Reportable 09/15/20 06:46 Macrocytosis Not Reportable 09/15/20 06:46 Spherocytes Not Reportable 09/15/20 06:46 Pappenheimer Bodies Not Reportable 09/15/20 06:46 Sickle Cells Not Reportable 09/15/20 06:46 Target Cells Not Reportable 09/15/20 06:46 Tear Drop Cells Not Reportable 09/15/20 06:46 Ovalocytes Not Reportable 09/15/20 06:46 Helmet Cells Not Reportable 09/15/20 06:46 [place] Bodies Not Reportable 09/15/20 06:46 [place] Rings Not Reportable 09/15/20 06:46 [place] Cells Not Reportable 09/15/20 06:46 Bite Cells Not Reportable 09/15/20 06:46 Crenated Cell Not Reportable 09/15/20 06:46 Elliptocytes Not Reportable 09/15/20 06:46 Acanthocytes (Spur) Not Reportable 09/15/20 06:46 Rouleaux Not Reportable 09/15/20 06:46 Hemoglobin C Crystals Not Reportable 09/15/20 06:46 Schistocytes Not Reportable 09/15/20 06:46 Malaria parasites Not Reportable 09/15/20 06:46 [place] Bodies Not Reportable 09/15/20 06:46 Hem Pathologist Commnt No 09/15/20 06:46 Sodium 134 mmol/L (137-145) L 09/21/20 05:48 Potassium 4.1 mmol/L (3.6-5.0) 09/21/20 05:48 Chloride 95.3 mmol/L (98-107) L 09/21/20 05:48 Carbon Dioxide 33 mmol/L (22-30) H 09/21/20 05:48 Anion Gap 10 mmol/L 09/21/20 05:48 BUN 36 mg/dL (9-20) H 09/21/20 05:48 Creatinine 1.5 mg/dL (0.8-1.3) H 09/21/20 05:48 Estimated GFR 54 ml/min 09/21/20 05:48 BUN/Creatinine Ratio 24 % 09/21/20 05:48 Glucose 132 mg/dL (75-100) H 09/21/20 05:48 POC Glucose 97 mg/dL (70-105) 09/20/20 13:56 Hemoglobin A1c 5.4 % (4-6) 09/14/20 12:28 Lactic Acid 4.00 mmol/L (0.7-2.0) H* 09/14/20 18:31 Calcium 7.7 mg/dL (8.4-10.2) L 09/21/20 05:48 Phosphorus 2.60 mg/dL (2.5-4.5) 09/19/20 04:19 Magnesium 3.00 mg/dL (1.7-2.3) H 09/17/20 08:10 Total Bilirubin 0.50 mg/dL (0.1-1.2) 09/15/20 06:46 AST 31 units/L (5-40) 09/15/20 06:46 ALT 21 units/L (7-56) 09/15/20 06:46 Alkaline Phosphatase 92 units/L (35-129) 09/15/20 06:46 Total Protein 5.0 g/dL (6.3-8.2) L 09/15/20 06:46 Albumin 1.9 g/dL (3.9-5) L 09/15/20 06:46 Albumin/Globulin Ratio 0.6 % 09/15/20 06:46 Urine Color Martha (Yellow) 09/14/20 Unknown Urine Turbidity Cloudy (Clear) 09/14/20 Unknown Urine pH 5.0 (5.0-7.0) 09/14/20 Unknown Ur Specific [place] 1.019 (1.003-1.030) 09/14/20 Unknown Urine Protein 100 mg/dl mg/dL (Negative) 09/14/20 Unknown Urine Glucose (UA) 50 mg/dL (Negative) 09/14/20 Unknown Urine Ketones Tr mg/dL (Negative) 09/14/20 Unknown Urine Blood Lg (Negative) 09/14/20 Unknown Urine Nitrite Neg (Negative) 09/14/20 Unknown Urine Bilirubin Neg (Negative) 09/14/20 Unknown Urine Urobilinogen < 2.0 mg/dL (<2.0) 09/14/20 Unknown Ur Leukocyte Esterase Tr (Negative) 09/14/20 Unknown Urine WBC (Auto) < 1.0 /HPF (0.0-6.0) 09/14/20 Unknown Urine RBC (Auto) < 1.0 /HPF (0.0-6.0) 09/14/20 Unknown U Epithel Cells (Auto) 3.0 /HPF (0-13.0) 09/14/20 Unknown C. difficile Tox (PCR) Positive (Negative) 09/16/20 08:40 [place]/IV: Voiding Method Diaper Active Medications - Current Medications Current Medications: Generic Name Dose Route Start Last Admin Trade Name Freq PRN Reason Stop Dose Admin Acetaminophen 650 mg 09/14/20 22:00 Acetaminophen 325 Mg Tab PO Q4H PRN Pain MILD(1-3)/Fever >100.5/GUY Donepezil HCl 10 mg 09/14/20 22:00 09/22/20 10:46 Donepezil 10 Mg Tab PO 10 mg QDAY JEVON Administration Famotidine 20 mg 09/22/20 10:00 09/22/20 10:46 Famotidine 20 Mg Tab PO 20 mg DAILY JEVON Administration Heparin Sodium (Porcine) 5,000 unit 09/14/20 22:00 09/22/20 10:46 Heparin 5,000 Unit/1 Ml Vial SUB-Q 5,000 unit Q12HR JEVON Administration Hydromorphone HCl 0.5 mg 09/14/20 22:00 Hydromorphone 1 Mg/1 Ml Inj IV Q3H PRN Pain , Severe (7-10) Sodium Chloride 1,000 mls @ 75 mls/hr 09/21/20 09:30 09/22/20 10:46 Nacl 0.9% 1000 Ml IV 75 mls/hr DIRECT JEVON Administration Metoclopramide HCl 5 mg 09/14/20 23:00 09/21/20 12:58 Metoclopramide 10 Mg/2 Ml Inj IV 5 mg Q6H PRN Administration Nausea And Vomiting Mirtazapine 15 mg 09/16/20 22:00 09/21/20 22:22 Mirtazapine 15 Mg Tab PO 15 mg QHS JEVON Administration Morphine Sulfate 2 mg 09/14/20 22:00 Morphine 2 Mg/1 Ml Inj IV Q4H PRN Pain, Moderate (4-6) Ondansetron HCl 4 mg 09/14/20 22:00 Ondansetron 4 Mg/2 Ml Inj IV Q8H PRN Nausea And Vomiting Sodium Chloride 10 ml 09/14/20 22:00 09/22/20 10:47 Sodium Chloride 0.9% 10 Ml Flush Syringe IV Not Given BID JEVON Sodium Chloride 10 ml 09/14/20 22:00 Sodium Chloride 0.9% 10 Ml Flush Syringe IV PRN PRN LINE FLUSH Tamsulosin HCl 0.4 mg 09/14/20 22:00 09/22/20 10:46 Tamsulosin 0.4 Mg Cap PO 0.4 mg QDAY JEVON Administration Trazodone HCl 50 mg 09/14/20 22:00 09/22/20 10:46 Trazodone 50 Mg Tab PO 50 mg QDAY JEVON Administration Vancomycin HCl 125 mg 09/19/20 14:01 09/22/20 12:52 Vancomycin 250 Mg/10 Ml Oral Liqd PO 09/29/20 12:01 125 mg Q6HR JEVON Administration Protocol Nutrition/Malnutrition Assess - Dietary Evaluation Nutrition/Malnutrition Findings: Nutrition Notes Start: 09/15/20 13:27 Freq: Status: Active Protocol: Document 09/20/20 12:52 (Rec: 09/20/20 12:57 MK [id number]) Nutrition Notes Initial or Follow up Reassessment Current Diagnosis Acute Kidney Injury, Hypertension Other Pertinent Diagnosis SIRS, colitis Current Diet clear liquids Labs/Tests Na 135 BUN 40 Cr 1.5 Pertinent Medications reviewed Height 5 ft 6 in Weight 49 kg [place] Body Weight (kg) 64.54 BMI 17.4 Weight Status Underweight Subjective/Other Information Per RN, pt tolerating clear liquids and drinking 100%. He did not drink breakfast this AM. RN unsure of ONS intakes. Percent of energy/protein needs met: 29%/18% Burn Absent Trauma Absent GI Symptoms Diarrhea Current % PO Good (75-100%) Minimum of two criteria Yes Body Fat Depletion Mild depletion (non-severe) Muscle Mass Mild Depletion (non-severe) #2 Nutrition Diagnosis Inadequate energy intake Etiology colitis As Evidenced by Signs and Symptoms pt on clear liquid diet and unable to meet needs #1 Nutrition Diagnosis Malnutrition Diagnosis Progress(for reassessment Continues documentation) Is patient on ventilator? No Is Patient Ambulatory and/or Out of Bed No REE-([facility]-confined to bed) 1342.968 Calculation Used for Recommendations [facility] Additional Notes Protein: (1.2-1.5 g/kg) 58-73g Fluid: 1 ml/kcal Nutrition Intervention Change Diet Order: advance as able Add Supplement/Snack (indicate name/kcal Ensure Clear TID /protein ) Provides kCal: 720 Provides Protein (gm) 24 Goal #1 Meet needs as best as possible Goal #2 Weight gain/maintenance Anticipated Discharge Needs: cardiac with ONS daily Follow-Up By: 09/22/20 Additional Comments F/u: diet advancement and intakes
== END 2020-09-22 17:24 | disposition hospice, home (50) | DRG 871 ==
LOC: ED 11:11 → 3A 19:33 → 3B-SURG 21:44
PROVIDERS: ADMIT Internal Medicine; ATTEND Internal Medicine
DX: A41.9 Sepsis, unspecified organism (principal); N17.0 Acute kidney failure with tubular necrosis; E43 Unspecified severe protein-calorie malnutrition; A04.72 Enterocolitis due to Clostridium difficile, not specified as recurrent; E87.0 Hyperosmolality and hypernatremia; I12.0 Hypertensive chronic kidney disease with stage 5 chronic kidney disease or end stage renal disease; R65.20 Severe sepsis without septic shock; Z20.822 Contact with and (suspected) exposure to COVID-19; G30.9 Alzheimer's disease, unspecified; F02.80 Dementia in other diseases classified elsewhere, unspecified severity, without behavioral disturbance, psychotic disturbance, mood disturbance, and anxiety; K21.9 Gastro-esophageal reflux disease without esophagitis; Z87.891 Personal history of nicotine dependence; Z79.82 Long term (current) use of aspirin; N18.9 Chronic kidney disease, unspecified
CPT/HCPCS: 36415; 71045; 74177; 80048; 80053; 81001; 82140; 82962; 83036; 83735; 84100; 85007; 85025; 85027; 87040; 87493; 96374; 96375; G0378; J1644; J2543; J2765; J3370; J7030; J7050; Q9967; U0003

== ENCOUNTER 2020-09-23 11:25 | Inpatient (IN) | payer MEDICARE ==
[2020-09-23] MEDS ORDERED: SODIUM CHLORIDE 0.9% 1000 ML 1,000 ML IV ONE (11:48)
--- NOTE | 2020-09-23 11:54 | Emergency Department Report ---
ED General Adult HPI - General Stated complaint: WEAKNESS Time Seen by Provider: 09/23/20 11:45 Source: patient, EMS - History of Present Illness Initial comments: Mr. Duron is an 84-year-old, [facility] patient with history of advanced dementia and chronic kidney disease. Patient was discharged from the hospital yesterday after patient was admitted for acute colitis found to be C. difficile. Patient was also found to be in acute renal failure secondary to dehydration. Patient brought to the emergency room via EMS from his local [facility] for evaluation of generalized weakness and altered mental status according to the EMS report. Patient also found to have a difficulty in breathing. EMS also reported that patient was tachycardic and EKG showed atrial flutter with RVR. Patient found to have a blood pressure of 80 over palpable. Upon arrival to the ER, patient is alert however is not oriented in time place or person. Sepsis protocol initiated and patient started on IV fluids. - Related Data Home Medications Medication Instructions Recorded Confirmed Last Taken Donepezil HCl [Donepezil HCl Odt] 10 mg PO QDAY 09/14/20 09/14/20 Unknown Mirtazapine [Remeron 15mg TAB] 15 mg PO QHS 09/14/20 09/14/20 Unknown Tamsulosin [Flomax] 0.4 mg PO QDAY 09/14/20 09/14/20 Unknown Trazodone HCl 50 mg PO QDAY 09/14/20 09/14/20 Unknown Previous Rx's Medication Instructions Recorded Last Taken Type Vancomycin HCl 125 mg PO Q6H #24 capsule 09/21/20 Unknown Rx Allergies Allergy/AdvReac Type Severity Reaction Status Date / Time No Known Allergies Allergy Unverified 09/02/20 09:20 ED Review of Systems ROS: Stated complaint: WEAKNESS Other details as noted in HPI Comment: All other systems reviewed and negative Constitutional: denies: chills, fever Respiratory: shortness of breath, SOB with exertion Cardiovascular: denies: chest pain Gastrointestinal: diarrhea. denies: abdominal pain Musculoskeletal: denies: back pain Neurological: weakness, confusion. denies: headache, numbness, paresthesias ED Past Medical Hx - Past Medical History Hx CVA: No Hx Congestive Heart Failure: No Hx Deep Vein Thrombosis: No Hx Arthritis: No Hx Asthma: No Hx COPD: No Additional medical history: ALzhiemers - Social History Smoking Status: Never Smoker - Medications Home Medications: Home Medications Medication Instructions Recorded Confirmed Last Taken Type Donepezil HCl [Donepezil HCl Odt] 10 mg PO QDAY 09/14/20 09/14/20 Unknown History Mirtazapine [Remeron 15mg TAB] 15 mg PO QHS 09/14/20 09/14/20 Unknown History Tamsulosin [Flomax] 0.4 mg PO QDAY 09/14/20 09/14/20 Unknown History Trazodone HCl 50 mg PO QDAY 09/14/20 09/14/20 Unknown History Vancomycin HCl 125 mg PO Q6H #24 capsule 09/21/20 Unknown Rx ED Physical Exam - General General appearance: alert, in distress - Head Head exam: Present: atraumatic, normocephalic, normal inspection - ENT ENT exam: Present: mucous membranes dry - Neck Neck exam: Present: normal inspection. Absent: tenderness - Respiratory Respiratory exam: Present: respiratory distress, wheezes, decreased breath sounds - Cardiovascular Cardiovascular Exam: Present: tachycardia, irregular rhythm - GI/Abdominal GI/Abdominal exam: Present: soft, normal bowel sounds. Absent: distended, tenderness, guarding, rebound, rigid, pulsatile mass - Extremities Exam Extremities exam: Present: normal inspection - Back Exam Back exam: Absent: CVA tenderness (R), CVA tenderness (L) - Neurological Exam Neurological exam: Present: alert, altered, CN II-XII intact - Psychiatric Psychiatric exam: Present: flat affect - Skin Skin exam: Present: warm, dry, normal color ED Course Vital Signs 09/23/20 13:27 Pulse Rate 50 L Respiratory 14 Rate Blood Pressure 118/58 [Right] O2 Sat by Pulse 100 Oximetry ED Medical Decision Making - Lab Data Result diagrams: 09/23/20 11:55 09/23/20 11:55 - EKG Data -: EKG Interpreted by Nv EKG shows normal: sinus rhythm Rate: bradycardia - EKG Data Interpretation: no acute changes - Radiology Data Radiology results: report reviewed - Medical Decision Making Mr. Duron is an 84-year-old, [facility] patient with history of advanced dementia and chronic kidney disease. Patient was discharged from the hospital yesterday after patient was admitted for acute colitis found to be C. difficile. Patient was also found to be in acute renal failure secondary to dehydration. Patient brought to the emergency room via EMS from his local [facility] for evaluation of generalized weakness and altered mental status according to the EMS report. Patient also found to have a difficulty in breathing. EMS also reported that patient was tachycardic and EKG showed atrial flutter with RVR. Patient found to have a blood pressure of 80 over palpable. Upon arrival to the ER, patient is alert however is not oriented in time place or person. Sepsis protocol initiated and patient started on IV fluids. Patient blood pressure significantly improved after 1 L of fluids with his current blood pressure now is 118/58. Patient heart rate is 50. EKG showed atrial flutter with RVR however when I looked at the EKG carefully there is a lot of artifact. Labs reviewed and is unremarkable. Chest x-ray showed no acute abnormalities. I discussed the patient with Dr. Olson from [facility] and he stated that he will talk to the patient daughter and then will go from there. Dr. Olson from [place] called back and stated that patient can be admitted to [facility] for further management. She stated that she discussed with his daughter and she agreed. I discussed the patient with Dr. Magana, he agreed to admit the patient to medical service for further management. Critical Care Time: Yes Critical care time in (mins) excluding proc time.: 30 Critical care attestation.: If time is entered above; I have spent that time in minutes in the direct care of this critically ill patient, excluding procedure time. ED Disposition Clinical Impression: Acute hypotension Disposition: OP ADMIT IP TO THIS HOSP Is pt being admited?: Yes Condition: Stable Referrals: JAVY MANUEL [Other] - 3-5 Days
[2020-09-23 12:29] LABS: Hematocrit 34.3 % (35.5-45.6); Hemoglobin 11.6 gm/dl (11.8-15.2); Mean Corpuscular HGB Conc 34 % (32-34); Mean Corpuscular Volume 95 fl (84-94); Red Blood Count 3.62 M/mm3 (3.65-5.03); Red Cell Distribution Width 14.3 % (13.2-15.2)
--- NOTE | 2020-09-23 12:29 | XRay Report ---
CHEST 1 VIEW 09/23/2020 11:20 AM INDICATION / CLINICAL INFORMATION: Dyspnea. COMPARISON: 09/14/2020 FINDINGS: SUPPORT DEVICES: None. HEART / MEDIASTINUM: No significant abnormality. LUNGS / PLEURA: Underexpanded exam without appreciable focal abnormality. No pneumothorax. ADDITIONAL FINDINGS: No significant additional findings. IMPRESSION: 1. Underexpanded portable exam without appreciable focal abnormality. Signer Name: Emerson Rowell MD Signed: 09/23/2020 12:24 PM Workstation Name: [employer]
[2020-09-23 12:32] LABS: Platelet Count 62 K/mm3 (140-440)
[2020-09-23 12:39] LABS: INR 1.2 (0.87-1.13)
[2020-09-23 12:40] LABS: Partial Thromboplastin Time 41.3 Sec. (24.2-36.6)
[2020-09-23 12:42] LABS: BUN/Creatinine Ratio 23; Blood Urea Nitrogen 30 mg/dL (9-20); Calcium 7.4 mg/dL (8.4-10.2); Hemolysis Index 2
[2020-09-23 12:46] LABS: Alanine Aminotransferase 26 units/L (7-56); Albumin 1.9 g/dL (3.9-5)
[2020-09-23 14:11] LABS: Bilirubin,Direct < 0.2 mg/dL (0-0.2)
[2020-09-23] MEDS ORDERED: ALBUTEROL 2.5 MG/3 ML NEBU IH ONE (14:14)
[2020-09-23 15:38] LABS: Total Cells Counted 100
[2020-09-23 15:39] LABS: RBC Morphology Normal
--- NOTE | 2020-09-23 15:42 | History and Physical Report ---
History of Present Illness Chief complaint: He is just getting worse History of present illness: 84 [facility] resident with Alzheimers Dementia, CKD, BPH presents to ED for evaluation. Pt is confused, lethargic and with diminished cognition and is unable to provide history as the time of my evaluation. Pt history taken from EMS staff, ED staff, [facility] Facility Staff, as well as patient daughter who made herself available via telephone for interview. As per staff, the patient was found to have worsening weakness, confusion, as well as hypotension with systolic blood pressure in the 80's. EMS was notified and upon arrival the patient was found to be hypotensive and in distress. Pt transported to [facility] for further care and evaluation of the aforementioned symptoms. Pt found to have volume depletion, as well as end stage Alzheimers Dementia. Pt placed in observation status and due to increased risk of worsening symptoms. No further history obtainable. Advanced care planning conducted in ED. Past History Past Medical History: renal failure, other (see HPI) Past Surgical History: No surgical history, Other (reviewed) Social history: single. denies: smoking, alcohol abuse, prescription drug abuse Family history: hypertension Medications and Allergies Allergies Allergy/AdvReac Type Severity Reaction Status Date / Time No Known Allergies Allergy Unverified 09/02/20 09:20 Home Medications Medication Instructions Recorded Confirmed Last Taken Type Donepezil HCl [Donepezil HCl Odt] 10 mg PO QDAY 09/14/20 09/14/20 Unknown History Mirtazapine [Remeron 15mg TAB] 15 mg PO QHS 09/14/20 09/14/20 Unknown History Tamsulosin [Flomax] 0.4 mg PO QDAY 09/14/20 09/14/20 Unknown History Trazodone HCl 50 mg PO QDAY 09/14/20 09/14/20 Unknown History Vancomycin HCl 125 mg PO Q6H #24 capsule 09/21/20 Unknown Rx Review of Systems ROS unobtainable: due to mental status Exam - Constitutional Vitals: Temp Pulse Resp BP Pulse Ox 50 L 14 118/58 100 09/23/20 13:27 09/23/20 13:27 09/23/20 13:27 09/23/20 13:27 General appearance: Present: mild distress, cachectic - EENT Eyes: Present: PERRL ENT: clear oral mucosa, hearing decreased - Neck Neck: Present: supple, normal ROM - Respiratory Respiratory effort: normal Respiratory: bilateral: CTA - Cardiovascular Rhythm: regular Heart Sounds: Present: S1 & S2. Absent: rub, click - Extremities Extremities: pulses symmetrical, No edema Peripheral Pulses: within normal limits - Abdominal General gastrointestinal: Present: soft, non-tender, non-distended, normal bowel sounds Male genitourinary: Present: normal - Integumentary Integumentary: Present: clear, dry, clammy, decreased turgor - Musculoskeletal Musculoskeletal: generalized weakness - Psychiatric Psychiatric: no appropriate mood/affect, no intact judgment & insight, no memory intact, agitated - Neurologic Neurologic: CNII-XII intact, no focal deficits, moves all extremities, no gait normal HEART Score - HEART Score Troponin: Troponin T < 0.010 ng/mL (0.00-0.029) 09/23/20 14:59 Results - Labs CBC & Chem 7: 09/23/20 11:55 09/23/20 11:55 Labs: Abnormal lab results 09/23/20 09/23/20 09/23/20 Range/Units 11:55 11:55 11:55 RBC 3.62 L (3.65-5.03) M/mm3 Hgb 11.6 L (11.8-15.2) gm/dl Hct 34.3 L (35.5-45.6) % MCV 95 H (84-94) fl Plt Count 62 L (140-440) K/mm3 Lymphocytes % (Manual) 5.0 L (13.4-35.0) % Seg Neutrophils # Man 8.2 H (1.8-7.7) K/mm3 Lymphocytes # (Manual) 0.5 L (1.2-5.4) K/mm3 PT 15.7 H (12.2-14.9) Sec. INR 1.20 H (0.87-1.13) APTT 41.3 H (24.2-36.6) Sec. Sodium 135 L (137-145) mmol/L BUN 30 H (9-20) mg/dL Calcium 7.4 L (8.4-10.2) mg/dL AST (5-40) units/L Total Protein (6.3-8.2) g/dL Albumin (3.9-5) g/dL Lipase 98 H (13-60) units/L 09/23/20 Range/Units 11:55 RBC (3.65-5.03) M/mm3 Hgb (11.8-15.2) gm/dl Hct (35.5-45.6) % MCV (84-94) fl Plt Count (140-440) K/mm3 Lymphocytes % (Manual) (13.4-35.0) % Seg Neutrophils # Man (1.8-7.7) K/mm3 Lymphocytes # (Manual) (1.2-5.4) K/mm3 PT (12.2-14.9) Sec. INR (0.87-1.13) APTT (24.2-36.6) Sec. Sodium (137-145) mmol/L BUN (9-20) mg/dL Calcium (8.4-10.2) mg/dL AST 42 H (5-40) units/L Total Protein 4.2 L (6.3-8.2) g/dL Albumin 1.9 L (3.9-5) g/dL Lipase (13-60) units/L Assessment and Plan - Patient Problems (1) Volume depletion Current Visit: Yes Status: Acute Plan to address problem: IVF resuscitation therapy, monitor uop q shift, continue medical management. (2) Acute hypotension Current Visit: Yes Status: Acute Plan to address problem: IVF resuscitation therapy, monitor bp q shift. (3) Alzheimer's dementia Current Visit: Yes Status: Acute Plan to address problem: Continue medical management. (4) DVT prophylaxis Current Visit: No Status: Acute Plan to address problem: SCD to BLE while in bed. (5) Advance care planning Current Visit: Yes Status: Acute Plan to address problem: Disease education conducted, Pt family elects to make patient DNR. Pt diagnosis, prognosis, and care plan discussed. +30 minutes.
[2020-09-23] MEDS ORDERED: ALBUTEROL 2.5 MG/3 ML NEBU IH PRN (16:23)
[2020-09-23] MEDS ORDERED: HYDROmorphone 1 MG/1 ML INJ IV PRN (16:23)
[2020-09-23] MEDS ORDERED: ACETAMINOPHEN 325 MG TAB PO PRN (16:23)
[2020-09-23] MEDS ORDERED: oxyCODONE /ACETAMINOPHEN 5-325MG TAB PO PRN (16:23)
[2020-09-23] MEDS ORDERED: ONDANSETRON 4 MG/2 ML INJ IV PRN (16:23)
--- NOTE | 2020-09-23 16:29 | Cat Scan Report ---
CT head/brain wo con INDICATION: AMS. TECHNIQUE: All CT scans at this location are performed using CT dose reduction for ALARA by means of automated e xposure control. COMPARISON: Head CT on 09/02/2020 FINDINGS: There is no evidence of hemorrhage, hydrocephalus, brain edema, or mass effect/mass lesion. There is stable moderate gallbladder the and moderate chronic small vessel ischemic change in the cerebral whi te matter. 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 The included paranasal sinuses and mastoid air cells are clear. The orbits appear unremarkable. IMPRESSION: 1. No acute findings or adverse change from prior. Signer Name: Emerson Rowell MD Signed: 09/23/2020 4:24 PM Workstation Name: [employer]
[2020-09-23 16:37] LABS: Bacteria,Urine 1+ /HPF (Negative); Bilirubin,Urine NEG (Negative); Blood,Urine LG (Negative); Color,Urine Amber (Yellow); Hyaline Casts,Urine 1 /LPF; Mucus,Urine FEW /HPF; Protein,Urine <15 mg/dL mg/dL (Negative); Urobilinogen,Urine < 2.0 mg/dL (<2.0)
[2020-09-23] MEDS ORDERED: VANCOMYCIN HCL 125 MG PO SCH (16:45)
[2020-09-23] MEDS: VANCOMYCIN 250 MG/10 ML ORAL LIQD PO SCH (18:28)
[2020-09-23] MEDS: DONEPEZIL 10 MG TAB PO SCH (22:47)
[2020-09-23] MEDS: MIRTAZAPINE 15 MG TAB PO SCH (22:47)
[2020-09-24] MEDS: SODIUM CHLORIDE 0.9% 1000 ML 1,000 ML IV SCH (06:32)
[2020-09-24] MEDS: VANCOMYCIN 250 MG/10 ML ORAL LIQD PO SCH ×4 (08:38→23:15)
[2020-09-24] MEDS ORDERED: NON-FORMULARY EACH (Donepezil Hcl [Donepezil Hcl Odt] 10 MG Tab.Rapdis) PO SCH (10:00)
--- NOTE | 2020-09-24 10:08 | Progress Note ---
Assessment and Plan Assessment and plan: Sepsis with hypotension. Patient meets criteria given the altered mentation, tachypnea, diagnosis of UTI and hypotension UTI. Toxic metabolic encephalopathy. Acute renal failure secondary to vasomotor nephropathy +/-ATN/sepsis/hypotension 09/24/2020. Patient remains confused and somnolent. Initiate IV antibiotics of Rocephin. Follow-up blood and urine cultures. Sepsis pathway. Continue IV fluid hydration and follow-up BMP. History Interval history: Patient remains confused. No new issues overnight Hospitalist Physical - Constitutional Vitals: Temp Pulse Resp BP Pulse Ox 97.2 F L 40 L 20 92/39 100 09/24/20 07:47 09/24/20 07:47 09/24/20 07:47 09/24/20 07:47 09/24/20 07:47 General appearance: Present: mild distress, cachectic - EENT Eyes: Present: PERRL, EOM intact ENT: hearing intact, clear oral mucosa, dentition normal - Neck Neck: Present: supple, normal ROM - Respiratory Respiratory effort: normal Respiratory: bilateral: CTA - Cardiovascular Rhythm: regular Heart Sounds: Present: S1 & S2. Absent: gallop, rub - Extremities Extremities: no ischemia, No edema, Full ROM - Abdominal General gastrointestinal: soft, non-tender, non-distended, normal bowel sounds - Integumentary Integumentary: Present: clear, warm, dry - Neurologic Neurologic: CNII-XII intact, moves all extremities HEART Score - HEART Score Troponin: Troponin T < 0.010 ng/mL (0.00-0.029) 09/23/20 14:59 Results - Labs CBC & Chem 7: 09/23/20 11:55 09/23/20 11:55 Labs: Laboratory Last Values WBC 9.0 K/mm3 (4.5-11.0) 09/23/20 11:55 RBC 3.62 M/mm3 (3.65-5.03) L 09/23/20 11:55 Hgb 11.6 gm/dl (11.8-15.2) L 09/23/20 11:55 Hct 34.3 % (35.5-45.6) L 09/23/20 11:55 MCV 95 fl (84-94) H 09/23/20 11:55 MCH 32 pg (28-32) 09/23/20 11:55 MCHC 34 % (32-34) 09/23/20 11:55 RDW 14.3 % (13.2-15.2) 09/23/20 11:55 Plt Count 62 K/mm3 (140-440) L 09/23/20 11:55 Add Manual Diff Complete 09/23/20 11:55 Total Counted 100 09/23/20 11:55 Seg Neutrophils % Machine [employer] 09/23/20 11:55 Lymphocytes % (Manual) 5.0 % (13.4-35.0) L 09/23/20 11:55 Monocytes % (Manual) 4.0 % (0.0-7.3) 09/23/20 11:55 Nucleated RBC % Not Reportable 09/23/20 11:55 Seg Neutrophils # Man 8.2 K/mm3 (1.8-7.7) H 09/23/20 11:55 Band Neutrophils # 0.0 K/mm3 09/23/20 11:55 Lymphocytes # (Manual) 0.5 K/mm3 (1.2-5.4) L 09/23/20 11:55 Abs React Lymphs (Man) 0.0 K/mm3 09/23/20 11:55 Monocytes # (Manual) 0.4 K/mm3 (0.0-0.8) 09/23/20 11:55 Eosinophils # (Manual) 0.0 K/mm3 (0.0-0.4) 09/23/20 11:55 Basophils # (Manual) 0.0 K/mm3 (0.0-0.1) 09/23/20 11:55 Metamyelocytes # 0.0 K/mm3 09/23/20 11:55 Myelocytes # 0.0 K/mm3 09/23/20 11:55 Promyelocytes # 0.0 K/mm3 09/23/20 11:55 Blast Cells # 0.0 K/mm3 09/23/20 11:55 WBC Morphology Not Reportable 09/23/20 11:55 Hypersegmented Neuts Not Reportable 09/23/20 11:55 Hyposegmented Neuts Not Reportable 09/23/20 11:55 Hypogranular Neuts Not Reportable 09/23/20 11:55 Smudge Cells Not Reportable 09/23/20 11:55 Toxic Granulation Not Reportable 09/23/20 11:55 Toxic Vacuolation Not Reportable 09/23/20 11:55 Dohle Bodies Not Reportable 09/23/20 11:55 Pelger-Huet Anomaly Not Reportable 09/23/20 11:55 Liliana Rods Not Reportable 09/23/20 11:55 Platelet Estimate Not Reportable 09/23/20 11:55 Clumped Platelets Not Reportable 09/23/20 11:55 Plt Clumps, EDTA Not Reportable 09/23/20 11:55 Large Platelets Not Reportable 09/23/20 11:55 Giant Platelets Not Reportable 09/23/20 11:55 Platelet Satelliting Not Reportable 09/23/20 11:55 Plt Morphology Comment Not Reportable 09/23/20 11:55 RBC Morphology Normal 09/23/20 11:55 Dimorphic RBCs Not Reportable 09/23/20 11:55 Polychromasia Not Reportable 09/23/20 11:55 Hypochromasia Not Reportable 09/23/20 11:55 Poikilocytosis Not Reportable 09/23/20 11:55 Anisocytosis Not Reportable 09/23/20 11:55 Microcytosis Not Reportable 09/23/20 11:55 Macrocytosis Not Reportable 09/23/20 11:55 Spherocytes Not Reportable 09/23/20 11:55 Pappenheimer Bodies Not Reportable 09/23/20 11:55 Sickle Cells Not Reportable 09/23/20 11:55 Target Cells Not Reportable 09/23/20 11:55 Tear Drop Cells Not Reportable 09/23/20 11:55 Ovalocytes Not Reportable 09/23/20 11:55 Helmet Cells Not Reportable 09/23/20 11:55 Cee-Dooling Bodies Not Reportable 09/23/20 11:55 Maynard Rings Not Reportable 09/23/20 11:55 Maggi Cells Not Reportable 09/23/20 11:55 Bite Cells Not Reportable 09/23/20 11:55 Crenated Cell Not Reportable 09/23/20 11:55 Elliptocytes Not Reportable 09/23/20 11:55 Acanthocytes (Spur) Not Reportable 09/23/20 11:55 Rouleaux Not Reportable 09/23/20 11:55 Hemoglobin C Crystals Not Reportable 09/23/20 11:55 Schistocytes Not Reportable 09/23/20 11:55 Malaria parasites Not Reportable 09/23/20 11:55 Juan Antonio Bodies Not Reportable 09/23/20 11:55 Hem Pathologist Commnt No 09/23/20 11:55 PT 15.7 Sec. (12.2-14.9) H 09/23/20 11:55 INR 1.20 (0.87-1.13) H 09/23/20 11:55 APTT 41.3 Sec. (24.2-36.6) H 09/23/20 11:55 Sodium 135 mmol/L (137-145) L 09/23/20 11:55 Potassium 3.7 mmol/L (3.6-5.0) 09/23/20 11:55 Chloride 99.9 mmol/L (98-107) 09/23/20 11:55 Carbon Dioxide 26 mmol/L (22-30) D 09/23/20 11:55 Anion Gap 13 mmol/L 09/23/20 11:55 BUN 30 mg/dL (9-20) H 09/23/20 11:55 Creatinine 1.3 mg/dL (0.8-1.3) 09/23/20 11:55 Estimated GFR > 60 ml/min 09/23/20 11:55 BUN/Creatinine Ratio 23 % 09/23/20 11:55 Glucose 99 mg/dL (75-100) 09/23/20 11:55 Lactic Acid 1.90 mmol/L (0.7-2.0) 09/23/20 11:55 Calcium 7.4 mg/dL (8.4-10.2) L 09/23/20 11:55 Total Bilirubin 0.40 mg/dL (0.1-1.2) 09/23/20 11:55 Direct Bilirubin < 0.2 mg/dL (0-0.2) 09/23/20 11:55 Indirect Bilirubin 0.2 mg/dL 09/23/20 11:55 AST 42 units/L (5-40) H 09/23/20 11:55 ALT 26 units/L (7-56) 09/23/20 11:55 Alkaline Phosphatase 71 units/L (35-129) 09/23/20 11:55 Troponin T < 0.010 ng/mL (0.00-0.029) 09/23/20 14:59 NT-Pro-B Natriuret Pep 339.9 pg/mL (0-900) 09/23/20 11:55 Total Protein 4.2 g/dL (6.3-8.2) L 09/23/20 11:55 Albumin 1.9 g/dL (3.9-5) L 09/23/20 11:55 Albumin/Globulin Ratio 0.8 % 09/23/20 11:55 Lipase 98 units/L (13-60) H 09/23/20 11:55 Urine Color Martha (Yellow) 09/23/20 Unknown Urine Turbidity Slightly-cloudy (Clear) 09/23/20 Unknown Urine pH 5.0 (5.0-7.0) 09/23/20 Unknown Ur Specific [place] 1.019 (1.003-1.030) 09/23/20 Unknown Urine Protein <15 mg/dl mg/dL (Negative) 09/23/20 Unknown Urine Glucose (UA) Neg mg/dL (Negative) 09/23/20 Unknown Urine Ketones Neg mg/dL (Negative) 09/23/20 Unknown Urine Blood Lg (Negative) 09/23/20 Unknown Urine Nitrite Neg (Negative) 09/23/20 Unknown Urine Bilirubin Neg (Negative) 09/23/20 Unknown Urine Urobilinogen < 2.0 mg/dL (<2.0) 09/23/20 Unknown Ur Leukocyte Esterase Neg (Negative) 09/23/20 Unknown Urine WBC (Auto) 64.0 /HPF (0.0-6.0) H 09/23/20 Unknown Urine RBC (Auto) 63.0 /HPF (0.0-6.0) 09/23/20 Unknown U Epithel Cells (Auto) 1.0 /HPF (0-13.0) 09/23/20 Unknown Urine Bacteria (Auto) 1+ /HPF (Negative) 09/23/20 Unknown Hyaline Casts 1 /LPF 09/23/20 Unknown Urine Mucus Few /HPF 09/23/20 Unknown Urine Yeast (Budding) 1+ /HPF 09/23/20 Unknown Microbiology: Microbiology 09/23/20 12:02 Peripheral/Venous Blood Culture - Preliminary Culture in Progress 09/23/20 11:55 Peripheral/Venous Blood Culture - Preliminary Culture in Progress [place]/IV: Voiding Method Urinal Active Medications - Current Medications Current Medications: Generic Name Dose Route Start Last Admin Trade Name Freq PRN Reason Stop Dose Admin Acetaminophen 650 mg 09/23/20 16:23 Acetaminophen 325 Mg Tab PO Q4H PRN Pain MILD(1-3)/Fever >100.5/GUY Albuterol 2.5 mg 09/23/20 16:23 Albuterol 2.5 Mg/3 Ml Nebu IH Q4HRT PRN Shortness Of Breath Donepezil HCl 10 mg 09/23/20 22:00 09/23/20 22:47 Donepezil 10 Mg Tab PO 10 mg QHS JEVON Administration Hydromorphone HCl 0.5 mg 09/23/20 16:23 Hydromorphone 1 Mg/1 Ml Inj IV Q12H PRN Pain , Severe (7-10) Sodium Chloride 1,000 mls @ 75 mls/hr 09/23/20 16:30 09/24/20 06:32 Nacl 0.9% 1000 Ml IV 75 mls/hr DIRECT JEVON Administration Mirtazapine 15 mg 09/23/20 22:00 09/23/20 22:47 Mirtazapine 15 Mg Tab PO 15 mg QHS JEVON Administration Ondansetron HCl 4 mg 09/23/20 16:23 Ondansetron 4 Mg/2 Ml Inj IV Q8H PRN Nausea And Vomiting Oxycodone/Acetaminophen 1 tab 09/23/20 16:23 Oxycodone /Acetaminophen 5-325mg Tab PO Q12H PRN Pain, Moderate (4-6) Sodium Chloride 10 ml 09/23/20 22:00 09/23/20 22:47 Sodium Chloride 0.9% 10 Ml Flush Syringe IV 10 ml BID JEVON Administration Sodium Chloride 10 ml 09/23/20 16:23 Sodium Chloride 0.9% 10 Ml Flush Syringe IV PRN PRN LINE FLUSH Tamsulosin HCl 0.4 mg 09/24/20 10:00 Tamsulosin 0.4 Mg Cap PO QDAY JEVON Trazodone HCl 50 mg 09/24/20 10:00 Trazodone 50 Mg Tab PO QDAY JEVON Vancomycin HCl 125 mg 09/23/20 18:00 09/24/20 08:38 Vancomycin 250 Mg/10 Ml Oral Liqd PO Not Given Q6HR JEVON
[2020-09-24] MEDS: traZODone 50 MG TAB PO SCH (10:23)
[2020-09-24] MEDS: TAMSULOSIN 0.4 MG CAP PO SCH (10:23)
[2020-09-24] MEDS: cefTRIAXone/NS 1 GM/50 ML 1 GM/50 ML BAG IV SCH (12:43)
--- NOTE | 2020-09-24 12:58 | Electrocardiograph Report ---
[facility] Test Date: 2020-09-23 Test Time: 11:31:32 Pat Name: RUDDY OCONNOR Department: Room: A459 Gender: M [place]ace [place]razer: CITLALY : 1935 Requested By: JOSE CAMPOVERDE Order Number: [id number] Reading MD: Abilio Ritchie Measurements Intervals [place] Rate: 119 P: MD: QRS: 174 QRSD: 120 T: QT: 144 QTc: 203 Interpretive Statements Marked baseline artifact precludes optimal rhythm interpretation, recommend ECG to be repeated Compared to ECG 09/02/2020 19:04:11 Current ECG is not interpretable Electronically Signed On 09-24-2020 12:58:00 EDT by Abilio Ritchie
[2020-09-24] MEDS: MIRTAZAPINE 15 MG TAB PO SCH (22:02)
[2020-09-24] MEDS: DONEPEZIL 10 MG TAB PO SCH (22:02)
[2020-09-25] MEDS: SODIUM CHLORIDE 0.9% 1000 ML 1,000 ML IV SCH ×2 (05:42→18:19)
[2020-09-25] MEDS: VANCOMYCIN 250 MG/10 ML ORAL LIQD PO SCH ×3 (05:43→17:25)
--- NOTE | 2020-09-25 08:32 | Progress Note ---
Assessment and Plan Assessment and plan: Sepsis with hypotension. Patient meets criteria given the altered mentation, tachypnea, diagnosis of UTI and hypotension UTI. Toxic metabolic encephalopathy. Acute renal failure secondary to vasomotor nephropathy +/-ATN/sepsis/hypotension 09/24/2020. Patient remains confused and somnolent. Initiate IV antibiotics of Rocephin. Follow-up blood and urine cultures. Sepsis pathway. Continue IV fluid hydration and follow-up BMP. 09/25/2020. Patient remains confused and somnolent. Continue IV antibiotics of Rocephin. Follow-up blood and urine cultures. Currently no growth x24 hours. Continue sepsis pathway. Continue IV fluid hydration and follow-up BMP. History Interval history: Patient remains confused. No new issues overnight Hospitalist Physical - Constitutional Vitals: Temp Pulse Resp BP Pulse Ox 98.4 F 43 L 18 153/120 97 09/25/20 08:13 09/25/20 08:13 09/25/20 08:13 09/25/20 08:13 09/25/20 08:17 General appearance: Present: mild distress, cachectic - EENT Eyes: Present: PERRL, EOM intact ENT: hearing intact, clear oral mucosa, dentition normal - Neck Neck: Present: supple, normal ROM - Respiratory Respiratory effort: normal Respiratory: bilateral: CTA - Cardiovascular Rhythm: regular Heart Sounds: Present: S1 & S2. Absent: gallop, rub - Extremities Extremities: no ischemia, No edema, Full ROM - Abdominal General gastrointestinal: soft, non-tender, non-distended, normal bowel sounds - Integumentary Integumentary: Present: clear, warm, dry - Neurologic Neurologic: CNII-XII intact, moves all extremities HEART Score - HEART Score Troponin: Troponin T < 0.010 ng/mL (0.00-0.029) 09/23/20 14:59 Results - Labs CBC & Chem 7: 09/23/20 11:55 09/23/20 11:55 Labs: Laboratory Last Values WBC 9.0 K/mm3 (4.5-11.0) 09/23/20 11:55 RBC 3.62 M/mm3 (3.65-5.03) L 09/23/20 11:55 Hgb 11.6 gm/dl (11.8-15.2) L 09/23/20 11:55 Hct 34.3 % (35.5-45.6) L 09/23/20 11:55 MCV 95 fl (84-94) H 09/23/20 11:55 MCH 32 pg (28-32) 09/23/20 11:55 MCHC 34 % (32-34) 09/23/20 11:55 RDW 14.3 % (13.2-15.2) 09/23/20 11:55 Plt Count 62 K/mm3 (140-440) L 09/23/20 11:55 Add Manual Diff Complete 09/23/20 11:55 Total Counted 100 09/23/20 11:55 Seg Neutrophils % Contract Administrative Assistant 09/23/20 11:55 Lymphocytes % (Manual) 5.0 % (13.4-35.0) L 09/23/20 11:55 Monocytes % (Manual) 4.0 % (0.0-7.3) 09/23/20 11:55 Nucleated RBC % Not Reportable 09/23/20 11:55 Seg Neutrophils # Man 8.2 K/mm3 (1.8-7.7) H 09/23/20 11:55 Band Neutrophils # 0.0 K/mm3 09/23/20 11:55 Lymphocytes # (Manual) 0.5 K/mm3 (1.2-5.4) L 09/23/20 11:55 Abs React Lymphs (Man) 0.0 K/mm3 09/23/20 11:55 Monocytes # (Manual) 0.4 K/mm3 (0.0-0.8) 09/23/20 11:55 Eosinophils # (Manual) 0.0 K/mm3 (0.0-0.4) 09/23/20 11:55 Basophils # (Manual) 0.0 K/mm3 (0.0-0.1) 09/23/20 11:55 Metamyelocytes # 0.0 K/mm3 09/23/20 11:55 Myelocytes # 0.0 K/mm3 09/23/20 11:55 Promyelocytes # 0.0 K/mm3 09/23/20 11:55 Blast Cells # 0.0 K/mm3 09/23/20 11:55 WBC Morphology Not Reportable 09/23/20 11:55 Hypersegmented Neuts Not Reportable 09/23/20 11:55 Hyposegmented Neuts Not Reportable 09/23/20 11:55 Hypogranular Neuts Not Reportable 09/23/20 11:55 Smudge Cells Not Reportable 09/23/20 11:55 Toxic Granulation Not Reportable 09/23/20 11:55 Toxic Vacuolation Not Reportable 09/23/20 11:55 Dohle Bodies Not Reportable 09/23/20 11:55 Pelger-Huet Anomaly Not Reportable 09/23/20 11:55 Liliana Rods Not Reportable 09/23/20 11:55 Platelet Estimate Not Reportable 09/23/20 11:55 Clumped Platelets Not Reportable 09/23/20 11:55 Plt Clumps, EDTA Not Reportable 09/23/20 11:55 Large Platelets Not Reportable 09/23/20 11:55 Giant Platelets Not Reportable 09/23/20 11:55 Platelet Satelliting Not Reportable 09/23/20 11:55 Plt Morphology Comment Not Reportable 09/23/20 11:55 RBC Morphology Normal 09/23/20 11:55 Dimorphic RBCs Not Reportable 09/23/20 11:55 Polychromasia Not Reportable 09/23/20 11:55 Hypochromasia Not Reportable 09/23/20 11:55 Poikilocytosis Not Reportable 09/23/20 11:55 Anisocytosis Not Reportable 09/23/20 11:55 Microcytosis Not Reportable 09/23/20 11:55 Macrocytosis Not Reportable 09/23/20 11:55 Spherocytes Not Reportable 09/23/20 11:55 Pappenheimer Bodies Not Reportable 09/23/20 11:55 Sickle Cells Not Reportable 09/23/20 11:55 Target Cells Not Reportable 09/23/20 11:55 Tear Drop Cells Not Reportable 09/23/20 11:55 Ovalocytes Not Reportable 09/23/20 11:55 Helmet Cells Not Reportable 09/23/20 11:55 Cee-[place] Bodies Not Reportable 09/23/20 11:55 [place] Rings Not Reportable 09/23/20 11:55 [place] Cells Not Reportable 09/23/20 11:55 Bite Cells Not Reportable 09/23/20 11:55 Crenated Cell Not Reportable 09/23/20 11:55 Elliptocytes Not Reportable 09/23/20 11:55 Acanthocytes (Spur) Not Reportable 09/23/20 11:55 Rouleaux Not Reportable 09/23/20 11:55 Hemoglobin C Crystals Not Reportable 09/23/20 11:55 Schistocytes Not Reportable 09/23/20 11:55 Malaria parasites Not Reportable 09/23/20 11:55 Juan Antonio Bodies Not Reportable 09/23/20 11:55 Hem Pathologist Commnt No 09/23/20 11:55 PT 15.7 Sec. (12.2-14.9) H 09/23/20 11:55 INR 1.20 (0.87-1.13) H 09/23/20 11:55 APTT 41.3 Sec. (24.2-36.6) H 09/23/20 11:55 Sodium 135 mmol/L (137-145) L 09/23/20 11:55 Potassium 3.7 mmol/L (3.6-5.0) 09/23/20 11:55 Chloride 99.9 mmol/L (98-107) 09/23/20 11:55 Carbon Dioxide 26 mmol/L (22-30) D 09/23/20 11:55 Anion Gap 13 mmol/L 09/23/20 11:55 BUN 30 mg/dL (9-20) H 09/23/20 11:55 Creatinine 1.3 mg/dL (0.8-1.3) 09/23/20 11:55 Estimated GFR > 60 ml/min 09/23/20 11:55 BUN/Creatinine Ratio 23 % 09/23/20 11:55 Glucose 99 mg/dL (75-100) 09/23/20 11:55 Lactic Acid 1.90 mmol/L (0.7-2.0) 09/23/20 11:55 Calcium 7.4 mg/dL (8.4-10.2) L 09/23/20 11:55 Total Bilirubin 0.40 mg/dL (0.1-1.2) 09/23/20 11:55 Direct Bilirubin < 0.2 mg/dL (0-0.2) 09/23/20 11:55 Indirect Bilirubin 0.2 mg/dL 09/23/20 11:55 AST 42 units/L (5-40) H 09/23/20 11:55 ALT 26 units/L (7-56) 09/23/20 11:55 Alkaline Phosphatase 71 units/L (35-129) 09/23/20 11:55 Troponin T < 0.010 ng/mL (0.00-0.029) 09/23/20 14:59 NT-Pro-B Natriuret Pep 339.9 pg/mL (0-900) 09/23/20 11:55 Total Protein 4.2 g/dL (6.3-8.2) L 09/23/20 11:55 Albumin 1.9 g/dL (3.9-5) L 09/23/20 11:55 Albumin/Globulin Ratio 0.8 % 09/23/20 11:55 Lipase 98 units/L (13-60) H 09/23/20 11:55 Urine Color Martha (Yellow) 09/23/20 Unknown Urine Turbidity Slightly-cloudy (Clear) 09/23/20 Unknown Urine pH 5.0 (5.0-7.0) 09/23/20 Unknown Ur Specific [place] 1.019 (1.003-1.030) 09/23/20 Unknown Urine Protein <15 mg/dl mg/dL (Negative) 09/23/20 Unknown Urine Glucose (UA) Neg mg/dL (Negative) 09/23/20 Unknown Urine Ketones Neg mg/dL (Negative) 09/23/20 Unknown Urine Blood Lg (Negative) 09/23/20 Unknown Urine Nitrite Neg (Negative) 09/23/20 Unknown Urine Bilirubin Neg (Negative) 09/23/20 Unknown Urine Urobilinogen < 2.0 mg/dL (<2.0) 09/23/20 Unknown Ur Leukocyte Esterase Neg (Negative) 09/23/20 Unknown Urine WBC (Auto) 64.0 /HPF (0.0-6.0) H 09/23/20 Unknown Urine RBC (Auto) 63.0 /HPF (0.0-6.0) 09/23/20 Unknown U Epithel Cells (Auto) 1.0 /HPF (0-13.0) 09/23/20 Unknown Urine Bacteria (Auto) 1+ /HPF (Negative) 09/23/20 Unknown Hyaline Casts 1 /LPF 09/23/20 Unknown Urine Mucus Few /HPF 09/23/20 Unknown Urine Yeast (Budding) 1+ /HPF 09/23/20 Unknown Coronavirus (PCR) (Negative) 09/24/20 10:41 Microbiology: Microbiology 09/23/20 12:02 Peripheral/Venous Blood Culture - Preliminary NO GROWTH AFTER 24 HOURS 09/23/20 11:55 Peripheral/Venous Blood Culture - Preliminary NO GROWTH AFTER 24 HOURS 09/23/20 Unknown Urine,Clean Catch Urine Culture - Preliminary NO GROWTH AFTER 24 HOURS [place]/IV: Voiding Method Toilet Active Medications - Current Medications Current Medications: Generic Name Dose Route Start Last Admin Trade Name Freq PRN Reason Stop Dose Admin Acetaminophen 650 mg 09/23/20 16:23 Acetaminophen 325 Mg Tab PO Q4H PRN Pain MILD(1-3)/Fever >100.5/GUY Albuterol 2.5 mg 09/23/20 16:23 Albuterol 2.5 Mg/3 Ml Nebu IH Q4HRT PRN Shortness Of Breath Donepezil HCl 10 mg 09/23/20 22:00 09/24/20 22:02 Donepezil 10 Mg Tab PO 10 mg QHS JEVON Administration Hydromorphone HCl 0.5 mg 09/23/20 16:23 Hydromorphone 1 Mg/1 Ml Inj IV Q12H PRN Pain , Severe (7-10) Sodium Chloride 1,000 mls @ 75 mls/hr 09/23/20 16:30 09/25/20 05:42 Nacl 0.9% 1000 Ml IV 75 mls/hr DIRECT JEVON Administration Ceftriaxone Sodium 1 gm in 50 mls @ 100 mls/hr 09/24/20 11:00 09/24/20 12:43 Rocephin/Ns 1 Gm/50 Ml IV 100 mls/hr Q24H JEVON Administration Protocol Mirtazapine 15 mg 09/23/20 22:00 09/24/20 22:02 Mirtazapine 15 Mg Tab PO 15 mg QHS JEVON Administration Ondansetron HCl 4 mg 09/23/20 16:23 Ondansetron 4 Mg/2 Ml Inj IV Q8H PRN Nausea And Vomiting Oxycodone/Acetaminophen 1 tab 09/23/20 16:23 Oxycodone /Acetaminophen 5-325mg Tab PO Q12H PRN Pain, Moderate (4-6) Sodium Chloride 10 ml 09/23/20 22:00 09/24/20 22:03 Sodium Chloride 0.9% 10 Ml Flush Syringe IV 10 ml BID JEVON Administration Sodium Chloride 10 ml 09/23/20 16:23 Sodium Chloride 0.9% 10 Ml Flush Syringe IV PRN PRN LINE FLUSH Tamsulosin HCl 0.4 mg 09/24/20 10:00 09/24/20 10:23 Tamsulosin 0.4 Mg Cap PO 0.4 mg QDAY JEVON Administration Trazodone HCl 50 mg 09/24/20 10:00 09/24/20 10:23 Trazodone 50 Mg Tab PO 50 mg QDAY JEVON Administration Vancomycin HCl 125 mg 09/23/20 18:00 09/25/20 05:43 Vancomycin 250 Mg/10 Ml Oral Liqd PO 09/29/20 01:59 125 mg Q6HR JEVON Administration
[2020-09-25 10:13] LABS: BUN/Creatinine Ratio 26; Blood Urea Nitrogen 29 mg/dL (9-20); Calcium 7.4 mg/dL (8.4-10.2); Hemolysis Index 17
[2020-09-25 10:28] LABS: Hemoglobin 10.4 gm/dl (11.8-15.2); Mean Corpuscular HGB Conc 34 % (32-34); Mean Corpuscular Volume 94 fl (84-94); Red Blood Count 3.29 M/mm3 (3.65-5.03); Red Cell Distribution Width 14.2 % (13.2-15.2)
[2020-09-25] MEDS: TAMSULOSIN 0.4 MG CAP PO SCH ×2 (10:28→10:36)
[2020-09-25] MEDS: traZODone 50 MG TAB PO SCH ×2 (10:28→10:36)
[2020-09-25] MEDS: cefTRIAXone/NS 1 GM/50 ML 1 GM/50 ML BAG IV SCH (10:33)
[2020-09-25 10:43] LABS: Platelet Count 45 K/mm3 (140-440)
[2020-09-25 12:08] LABS: Band Neutrophils # (Manual) 0.1 K/mm3; Total Cells Counted 100
[2020-09-25 12:11] LABS: Platelet Estimate Consistent w Auto; Target Cells 1+; Tear Drop Cells Few
[2020-09-25] MEDS: MIRTAZAPINE 15 MG TAB PO SCH (21:21)
[2020-09-25] MEDS: DONEPEZIL 10 MG TAB PO SCH (21:21)
[2020-09-26] MEDS: VANCOMYCIN 250 MG/10 ML ORAL LIQD PO SCH ×4 (05:06→17:32)
[2020-09-26] MEDS: SODIUM CHLORIDE 0.9% 1000 ML 1,000 ML IV SCH (05:15)
[2020-09-26 07:14] LABS: Hematocrit 32.1 % (35.5-45.6); Hemoglobin 10.8 gm/dl (11.8-15.2); Mean Corpuscular HGB Conc 34 % (32-34); Mean Corpuscular Volume 96 fl (84-94); Red Blood Count 3.36 M/mm3 (3.65-5.03); Red Cell Distribution Width 14.1 % (13.2-15.2)
[2020-09-26 07:31] LABS: Platelet Count 40 K/mm3 (140-440)
[2020-09-26 07:32] LABS: Calcium 6.9 mg/dL (8.4-10.2)
--- NOTE | 2020-09-26 09:03 | Progress Note ---
Assessment and Plan Assessment and plan: Sepsis with hypotension. Patient meets criteria given the altered mentation, tachypnea, diagnosis of UTI and hypotension UTI. Toxic metabolic encephalopathy. Acute renal failure secondary to vasomotor nephropathy +/-ATN/sepsis/hypotension 09/24/2020. Patient remains confused and somnolent. Initiate IV antibiotics of Rocephin. Follow-up blood and urine cultures. Sepsis pathway. Continue IV fluid hydration and follow-up BMP. 09/25/2020. Patient remains confused and somnolent. Continue IV antibiotics of Rocephin. Follow-up blood and urine cultures. Currently no growth x24 hours. Continue sepsis pathway. Continue IV fluid hydration and follow-up BMP. 09/26/2020. Patient remains confused and somnolent. Unsure of patient's baseline. Will attempt to contact family again today. Urine and blood cultures negative x48 hours. Continue IV antibiotics and IV fluid hydration History Interval history: Patient remains confused. No new issues overnight Hospitalist Physical - Constitutional Vitals: Temp Pulse Resp BP Pulse Ox 98.4 F 75 18 127/95 96 09/26/20 08:22 09/26/20 08:14 09/26/20 04:25 09/26/20 08:22 09/26/20 08:14 General appearance: Present: mild distress, cachectic - EENT Eyes: Present: PERRL, EOM intact ENT: hearing intact, clear oral mucosa, dentition normal - Neck Neck: Present: supple, normal ROM - Respiratory Respiratory effort: normal Respiratory: bilateral: CTA - Cardiovascular Rhythm: regular Heart Sounds: Present: S1 & S2. Absent: gallop, rub - Extremities Extremities: no ischemia, No edema, Full ROM - Abdominal General gastrointestinal: soft, non-tender, non-distended, normal bowel sounds - Integumentary Integumentary: Present: clear, warm, dry - Neurologic Neurologic: CNII-XII intact, moves all extremities HEART Score - HEART Score Troponin: Troponin T < 0.010 ng/mL (0.00-0.029) 09/23/20 14:59 Results - Labs CBC & Chem 7: 09/26/20 05:19 09/26/20 05:19 Labs: Laboratory Last Values WBC 13.0 K/mm3 (4.5-11.0) H 09/26/20 05:19 RBC 3.36 M/mm3 (3.65-5.03) L 09/26/20 05:19 Hgb 10.8 gm/dl (11.8-15.2) L 09/26/20 05:19 Hct 32.1 % (35.5-45.6) L 09/26/20 05:19 MCV 96 fl (84-94) H 09/26/20 05:19 MCH 32 pg (28-32) 09/26/20 05:19 MCHC 34 % (32-34) 09/26/20 05:19 RDW 14.1 % (13.2-15.2) 09/26/20 05:19 Plt Count 40 K/mm3 (140-440) L 09/26/20 05:19 Add Manual Diff Complete 09/25/20 09:45 Total Counted 100 09/25/20 09:45 Seg Neutrophils % Power Tool Repairer 09/26/20 05:19 Seg Neuts % (Manual) 97.0 % (40.0-70.0) H 09/25/20 09:45 Band Neutrophils % 1.0 % 09/25/20 09:45 Lymphocytes % (Manual) 5.0 % (13.4-35.0) L 09/23/20 11:55 Monocytes % (Manual) 2.0 % (0.0-7.3) 09/25/20 09:45 Nucleated RBC % Not Reportable 09/25/20 09:45 Seg Neutrophils # Man 11.0 K/mm3 (1.8-7.7) H 09/25/20 09:45 Band Neutrophils # 0.1 K/mm3 09/25/20 09:45 Lymphocytes # (Manual) 0.0 K/mm3 (1.2-5.4) L 09/25/20 09:45 Abs React Lymphs (Man) 0.0 K/mm3 09/25/20 09:45 Monocytes # (Manual) 0.2 K/mm3 (0.0-0.8) 09/25/20 09:45 Eosinophils # (Manual) 0.0 K/mm3 (0.0-0.4) 09/25/20 09:45 Basophils # (Manual) 0.0 K/mm3 (0.0-0.1) 09/25/20 09:45 Metamyelocytes # 0.0 K/mm3 09/25/20 09:45 Myelocytes # 0.0 K/mm3 09/25/20 09:45 Promyelocytes # 0.0 K/mm3 09/25/20 09:45 Blast Cells # 0.0 K/mm3 09/25/20 09:45 WBC Morphology Not Reportable 09/25/20 09:45 WBC Morphology TNR 09/25/20 09:45 Hypersegmented Neuts Not Reportable 09/25/20 09:45 Hyposegmented Neuts Not Reportable 09/25/20 09:45 Hypogranular Neuts Not Reportable 09/25/20 09:45 Smudge Cells Not Reportable 09/25/20 09:45 Toxic Granulation Not Reportable 09/25/20 09:45 Toxic Vacuolation Not Reportable 09/25/20 09:45 Dohle Bodies Not Reportable 09/25/20 09:45 Pelger-Huet Anomaly Not Reportable 09/25/20 09:45 Liliana Rods Not Reportable 09/25/20 09:45 Platelet Estimate Consistent w auto 09/25/20 09:45 Clumped Platelets Not Reportable 09/25/20 09:45 Plt Clumps, EDTA Not Reportable 09/25/20 09:45 Large Platelets Not Reportable 09/25/20 09:45 Giant Platelets Not Reportable 09/25/20 09:45 Platelet Satelliting Not Reportable 09/25/20 09:45 Plt Morphology Comment Not Reportable 09/25/20 09:45 RBC Morphology Not Reportable 09/25/20 09:45 Dimorphic RBCs Not Reportable 09/25/20 09:45 Polychromasia Not Reportable 09/25/20 09:45 Hypochromasia Not Reportable 09/25/20 09:45 Poikilocytosis Not Reportable 09/25/20 09:45 Anisocytosis Not Reportable 09/25/20 09:45 Microcytosis Not Reportable 09/25/20 09:45 Macrocytosis Not Reportable 09/25/20 09:45 Spherocytes Not Reportable 09/25/20 09:45 Pappenheimer Bodies Not Reportable 09/25/20 09:45 Sickle Cells Not Reportable 09/25/20 09:45 Target Cells 1+ 09/25/20 09:45 Tear Drop Cells Few 09/25/20 09:45 Ovalocytes Not Reportable 09/25/20 09:45 Helmet Cells Not Reportable 09/25/20 09:45 Cee-[place] Bodies Not Reportable 09/25/20 09:45 [place] Rings Not Reportable 09/25/20 09:45 [place] Cells Not Reportable 09/25/20 09:45 Bite Cells Not Reportable 09/25/20 09:45 Crenated Cell Not Reportable 09/25/20 09:45 Elliptocytes Not Reportable 09/25/20 09:45 Acanthocytes (Spur) Not Reportable 09/25/20 09:45 Rouleaux Not Reportable 09/25/20 09:45 Hemoglobin C Crystals Not Reportable 09/25/20 09:45 Schistocytes Not Reportable 09/25/20 09:45 Malaria parasites Not Reportable 09/25/20 09:45 Juan Antonio Bodies Not Reportable 09/25/20 09:45 Hem Pathologist Commnt No 09/25/20 09:45 PT 15.7 Sec. (12.2-14.9) H 09/23/20 11:55 INR 1.20 (0.87-1.13) H 09/23/20 11:55 APTT 41.3 Sec. (24.2-36.6) H 09/23/20 11:55 Sodium 140 mmol/L (137-145) 09/26/20 05:19 Potassium 3.5 mmol/L (3.6-5.0) L 09/26/20 05:19 Chloride 108.2 mmol/L (98-107) H 09/26/20 05:19 Carbon Dioxide 23 mmol/L (22-30) 09/26/20 05:19 Anion Gap 12 mmol/L 09/26/20 05:19 BUN 33 mg/dL (9-20) H 09/26/20 05:19 Creatinine 1.4 mg/dL (0.8-1.3) H 09/26/20 05:19 Estimated GFR 58 ml/min 09/26/20 05:19 BUN/Creatinine Ratio 24 % 09/26/20 05:19 Glucose 40 mg/dL (75-100) L 09/26/20 05:19 Lactic Acid 1.90 mmol/L (0.7-2.0) 09/23/20 11:55 Calcium 6.9 mg/dL (8.4-10.2) L 09/26/20 05:19 Total Bilirubin 0.40 mg/dL (0.1-1.2) 09/23/20 11:55 Direct Bilirubin < 0.2 mg/dL (0-0.2) 09/23/20 11:55 Indirect Bilirubin 0.2 mg/dL 09/23/20 11:55 AST 42 units/L (5-40) H 09/23/20 11:55 ALT 26 units/L (7-56) 09/23/20 11:55 Alkaline Phosphatase 71 units/L (35-129) 09/23/20 11:55 Troponin T < 0.010 ng/mL (0.00-0.029) 09/23/20 14:59 NT-Pro-B Natriuret Pep 339.9 pg/mL (0-900) 09/23/20 11:55 Total Protein 4.2 g/dL (6.3-8.2) L 09/23/20 11:55 Albumin 1.9 g/dL (3.9-5) L 09/23/20 11:55 Albumin/Globulin Ratio 0.8 % 09/23/20 11:55 Lipase 98 units/L (13-60) H 09/23/20 11:55 Urine Color Martha (Yellow) 09/23/20 Unknown Urine Turbidity Slightly-cloudy (Clear) 09/23/20 Unknown Urine pH 5.0 (5.0-7.0) 09/23/20 Unknown Ur Specific [place] 1.019 (1.003-1.030) 09/23/20 Unknown Urine Protein <15 mg/dl mg/dL (Negative) 09/23/20 Unknown Urine Glucose (UA) Neg mg/dL (Negative) 09/23/20 Unknown Urine Ketones Neg mg/dL (Negative) 09/23/20 Unknown Urine Blood Lg (Negative) 09/23/20 Unknown Urine Nitrite Neg (Negative) 09/23/20 Unknown Urine Bilirubin Neg (Negative) 09/23/20 Unknown Urine Urobilinogen < 2.0 mg/dL (<2.0) 09/23/20 Unknown Ur Leukocyte Esterase Neg (Negative) 09/23/20 Unknown Urine WBC (Auto) 64.0 /HPF (0.0-6.0) H 09/23/20 Unknown Urine RBC (Auto) 63.0 /HPF (0.0-6.0) 09/23/20 Unknown U Epithel Cells (Auto) 1.0 /HPF (0-13.0) 09/23/20 Unknown Urine Bacteria (Auto) 1+ /HPF (Negative) 09/23/20 Unknown Hyaline Casts 1 /LPF 09/23/20 Unknown Urine Mucus Few /HPF 09/23/20 Unknown Urine Yeast (Budding) 1+ /HPF 09/23/20 Unknown Coronavirus (PCR) Negative (Negative) 09/24/20 10:41 Microbiology: Microbiology 09/23/20 12:02 Peripheral/Venous Blood Culture - Preliminary NO GROWTH AFTER 48 HOURS 09/23/20 11:55 Peripheral/Venous Blood Culture - Preliminary NO GROWTH AFTER 48 HOURS 09/23/20 Unknown Urine,Clean Catch Urine Culture - Final NO GROWTH AFTER 48 HOURS [place]/IV: Voiding Method Condom Catheter Active Medications - Current Medications Current Medications: Generic Name Dose Route Start Last Admin Trade Name Freq PRN Reason Stop Dose Admin Acetaminophen 650 mg 09/23/20 16:23 Acetaminophen 325 Mg Tab PO Q4H PRN Pain MILD(1-3)/Fever >100.5/GUY Albuterol 2.5 mg 09/23/20 16:23 Albuterol 2.5 Mg/3 Ml Nebu IH Q4HRT PRN Shortness Of Breath Donepezil HCl 10 mg 09/23/20 22:00 09/25/20 21:21 Donepezil 10 Mg Tab PO 10 mg QHS JEVON Administration Hydromorphone HCl 0.5 mg 09/23/20 16:23 Hydromorphone 1 Mg/1 Ml Inj IV Q12H PRN Pain , Severe (7-10) Sodium Chloride 1,000 mls @ 75 mls/hr 09/23/20 16:30 09/26/20 05:15 Nacl 0.9% 1000 Ml IV 75 mls/hr DIRECT JEVON Administration Ceftriaxone Sodium 1 gm in 50 mls @ 100 mls/hr 09/24/20 11:00 09/25/20 10:33 Rocephin/Ns 1 Gm/50 Ml IV 100 mls/hr Q24H JEVON Administration Protocol Mirtazapine 15 mg 09/23/20 22:00 09/25/20 21:21 Mirtazapine 15 Mg Tab PO 15 mg QHS JEVON Administration Ondansetron HCl 4 mg 09/23/20 16:23 Ondansetron 4 Mg/2 Ml Inj IV Q8H PRN Nausea And Vomiting Oxycodone/Acetaminophen 1 tab 09/23/20 16:23 Oxycodone /Acetaminophen 5-325mg Tab PO Q12H PRN Pain, Moderate (4-6) Sodium Chloride 10 ml 09/23/20 22:00 09/25/20 21:21 Sodium Chloride 0.9% 10 Ml Flush Syringe IV 10 ml BID JEVON Administration Sodium Chloride 10 ml 09/23/20 16:23 Sodium Chloride 0.9% 10 Ml Flush Syringe IV PRN PRN LINE FLUSH Tamsulosin HCl 0.4 mg 09/24/20 10:00 09/25/20 10:36 Tamsulosin 0.4 Mg Cap PO Not Given QDAY JEVON Trazodone HCl 50 mg 09/24/20 10:00 09/25/20 10:36 Trazodone 50 Mg Tab PO Not Given QDAY JEVON Vancomycin HCl 125 mg 09/23/20 18:00 09/26/20 05:06 Vancomycin 250 Mg/10 Ml Oral Liqd PO 09/29/20 01:59 125 mg Q6HR JEVON Administration
[2020-09-26] MEDS: traZODone 50 MG TAB PO SCH (10:50)
[2020-09-26] MEDS: cefTRIAXone/NS 1 GM/50 ML 1 GM/50 ML BAG IV SCH (10:50)
[2020-09-26] MEDS: TAMSULOSIN 0.4 MG CAP PO SCH (10:50)
[2020-09-26 11:26] LABS: Total Cells Counted 100
[2020-09-26 11:27] LABS: Crenated RBC Rare; Schistocytes Rare
[2020-09-26 11:28] LABS: Platelet Estimate Consistent w Auto; Target Cells Rare
--- NOTE | 2020-09-26 16:11 | Ultrasound Report ---
ULTRASOUND RENAL INDICATION: ARF, UTI. COMPARISON: No relevant prior imaging study available. FINDINGS: RIGHT KIDNEY: Size: 7.2 cm. Echogenicity: Echogenic. Cortical thickness: 1.1 cm. Hydronephrosis: None. Cyst or mass: None. Stones: None. LEFT KIDNEY: Size: 8.2 cm. Echogenicity: Echogenic. Cortical thickness: 0.6 cm. Hydronephrosis: None. Cyst or mass: None. Stones: None. Urinary Bladder: Enlarged prostate with intravesicular protrusion. Free Fluid: Moderate ascites. Additional Findings: None. IMPRESSION 1. Small echogenic kidneys characteristic for medical renal disease. No hydronephrosis. 2. Moderate ascites 3. Enlarged prostate with intravesicular protrusion Signer Name: Herbie Murillo MD Signed: 09/26/2020 4:07 PM Workstation Name: [id number]
[2020-09-26] MEDS ORDERED: DEXTROSE 50% IN WATER (25GM) 50 ML SYRINGE IV ONE (17:03)
[2020-09-26] MEDS: D5W/0.45% NACL 1,000 ML IV SCH (17:32)
[2020-09-26] MEDS: DONEPEZIL 10 MG TAB PO SCH (22:07)
[2020-09-26] MEDS: MIRTAZAPINE 15 MG TAB PO SCH (22:08)
[2020-09-27] MEDS: VANCOMYCIN 250 MG/10 ML ORAL LIQD PO SCH ×4 (00:19→18:31)
[2020-09-27] MEDS ORDERED: SODIUM CHLORIDE 0.9% 250ML 250 ML IV ONE (04:29)
[2020-09-27 05:14] LABS: Hematocrit 34.1 % (35.5-45.6); Hemoglobin 11.3 gm/dl (11.8-15.2); Mean Corpuscular HGB Conc 33 % (32-34); Mean Corpuscular Volume 97 fl (84-94); Red Blood Count 3.53 M/mm3 (3.65-5.03); Red Cell Distribution Width 14.6 % (13.2-15.2)
[2020-09-27 05:25] LABS: Calcium 6.7 mg/dL (8.4-10.2)
[2020-09-27 07:09] LABS: Band Neutrophils # (Manual) 1.5 K/mm3; Platelet Estimate Consistent w Auto; Schistocytes Rare; Total Cells Counted 100
[2020-09-27 07:10] LABS: Platelet Count 38 K/mm3 (140-440)
[2020-09-27] MEDS: D5W/0.45% NACL 1,000 ML IV SCH ×2 (08:16→22:48)
--- NOTE | 2020-09-27 08:32 | Progress Note ---
Assessment and Plan Assessment and plan: Sepsis with hypotension. Patient meets criteria given the altered mentation, tachypnea, diagnosis of UTI and hypotension UTI. Toxic metabolic encephalopathy. Acute renal failure secondary to vasomotor nephropathy +/-ATN/sepsis/hypotension Alzheimers Dementia recent Cdiff Colitis 09/24/2020. Patient remains confused and somnolent. Initiate IV antibiotics of Rocephin. Follow-up blood and urine cultures. Sepsis pathway. Continue IV fluid hydration and follow-up BMP. 09/25/2020. Patient remains confused and somnolent. Continue IV antibiotics of Rocephin. Follow-up blood and urine cultures. Currently no growth x24 hours. Continue sepsis pathway. Continue IV fluid hydration and follow-up BMP. 09/26/2020. Patient remains confused and somnolent. Unsure of patient's baseline. Will attempt to contact family again today. Urine and blood cultures negative x48 hours. Continue IV antibiotics and IV fluid hydration 09/27/2020. Patient apparently had an episode of hypotension and respiratory distress last evening. Nurse practitioner reportedly started the patient on BiPAP. Patient also received IV bolus. We will check chest x-ray and ABG stat. I discussed the patient's baseline mental status with the daughter, Kellee Smith who informed me that the patient is essentially nonverbal and only responds occasionally with yes or no answers. I recalled Ms. Smith to update her with change of condition but no answer. Blood and urine cultures remain negative. I suspect patient is near baseline mental status. Patient still with some mild renal insufficiency. Continue IV fluid hydration. Anticipate discharge in the next 1 to 2 days if continues to remain stable History Interval history: Patient remains confused. No new issues overnight Hospitalist Physical - Constitutional Vitals: Temp Pulse Resp BP Pulse Ox 98.3 F 56 L 22 86/45 97 09/26/20 21:04 09/27/20 05:58 09/27/20 05:58 09/27/20 05:58 09/27/20 05:58 General appearance: Present: mild distress, cachectic - EENT Eyes: Present: PERRL, EOM intact ENT: hearing intact, clear oral mucosa, dentition normal - Neck Neck: Present: supple, normal ROM - Respiratory Respiratory effort: normal Respiratory: bilateral: CTA - Cardiovascular Rhythm: regular Heart Sounds: Present: S1 & S2. Absent: gallop, rub - Extremities Extremities: no ischemia, No edema, Full ROM - Abdominal General gastrointestinal: soft, non-tender, non-distended, normal bowel sounds - Integumentary Integumentary: Present: clear, warm, dry - Neurologic Neurologic: CNII-XII intact, moves all extremities HEART Score - HEART Score Troponin: Troponin T < 0.010 ng/mL (0.00-0.029) 09/23/20 14:59 Results - Labs CBC & Chem 7: 09/27/20 04:07 09/27/20 04:07 Labs: Laboratory Last Values WBC 10.6 K/mm3 (4.5-11.0) 09/27/20 04:07 RBC 3.53 M/mm3 (3.65-5.03) L 09/27/20 04:07 Hgb 11.3 gm/dl (11.8-15.2) L 09/27/20 04:07 Hct 34.1 % (35.5-45.6) L 09/27/20 04:07 MCV 97 fl (84-94) H 09/27/20 04:07 MCH 32 pg (28-32) 09/27/20 04:07 MCHC 33 % (32-34) 09/27/20 04:07 RDW 14.6 % (13.2-15.2) 09/27/20 04:07 Plt Count 38 K/mm3 (140-440) L 09/27/20 04:07 Add Manual Diff Complete 09/27/20 04:07 Total Counted 100 09/27/20 04:07 Seg Neutrophils % Account Processor 09/27/20 04:07 Seg Neuts % (Manual) 86.0 % (40.0-70.0) H 09/27/20 04:07 Band Neutrophils % 14.0 % 09/27/20 04:07 Lymphocytes % (Manual) 1.0 % (13.4-35.0) L 09/26/20 05:19 Monocytes % (Manual) 2.0 % (0.0-7.3) 09/25/20 09:45 Nucleated RBC % 1.0 % (0.0-0.9) H 09/27/20 04:07 Seg Neutrophils # Man 9.1 K/mm3 (1.8-7.7) H 09/27/20 04:07 Band Neutrophils # 1.5 K/mm3 09/27/20 04:07 Lymphocytes # (Manual) 0.0 K/mm3 (1.2-5.4) L 09/27/20 04:07 Abs React Lymphs (Man) 0.0 K/mm3 09/27/20 04:07 Monocytes # (Manual) 0.0 K/mm3 (0.0-0.8) 09/27/20 04:07 Eosinophils # (Manual) 0.0 K/mm3 (0.0-0.4) 09/27/20 04:07 Basophils # (Manual) 0.0 K/mm3 (0.0-0.1) 09/27/20 04:07 Metamyelocytes # 0.0 K/mm3 09/27/20 04:07 Myelocytes # 0.0 K/mm3 09/27/20 04:07 Promyelocytes # 0.0 K/mm3 09/27/20 04:07 Blast Cells # 0.0 K/mm3 09/27/20 04:07 WBC Morphology Not Reportable 09/27/20 04:07 Hypersegmented Neuts Not Reportable 09/27/20 04:07 Hyposegmented Neuts Not Reportable 09/27/20 04:07 Hypogranular Neuts Not Reportable 09/27/20 04:07 Smudge Cells Not Reportable 09/27/20 04:07 Toxic Granulation Not Reportable 09/27/20 04:07 Toxic Vacuolation Not Reportable 09/27/20 04:07 Dohle Bodies Not Reportable 09/27/20 04:07 Pelger-Huet Anomaly Not Reportable 09/27/20 04:07 Liliana Rods Not Reportable 09/27/20 04:07 Platelet Estimate Consistent w auto 09/27/20 04:07 Clumped Platelets Not Reportable 09/27/20 04:07 Plt Clumps, EDTA Not Reportable 09/27/20 04:07 Large Platelets Not Reportable 09/27/20 04:07 Giant Platelets Not Reportable 09/27/20 04:07 Platelet Satelliting Not Reportable 09/27/20 04:07 Plt Morphology Comment Not Reportable 09/27/20 04:07 RBC Morphology Not Reportable 09/27/20 04:07 Dimorphic RBCs Not Reportable 09/27/20 04:07 Polychromasia Not Reportable 09/27/20 04:07 Hypochromasia Not Reportable 09/27/20 04:07 Poikilocytosis Not Reportable 09/27/20 04:07 Anisocytosis Not Reportable 09/27/20 04:07 Microcytosis Not Reportable 09/27/20 04:07 Macrocytosis Not Reportable 09/27/20 04:07 Spherocytes Not Reportable 09/27/20 04:07 Pappenheimer Bodies Not Reportable 09/27/20 04:07 Sickle Cells Not Reportable 09/27/20 04:07 Target Cells Not Reportable 09/27/20 04:07 Tear Drop Cells Not Reportable 09/27/20 04:07 Ovalocytes Not Reportable 09/27/20 04:07 Helmet Cells Not Reportable 09/27/20 04:07 [place] Bodies Not Reportable 09/27/20 04:07 [place] Rings Not Reportable 09/27/20 04:07 Maggi Cells Not Reportable 09/27/20 04:07 Bite Cells Not Reportable 09/27/20 04:07 Crenated Cell Not Reportable 09/27/20 04:07 Elliptocytes Not Reportable 09/27/20 04:07 Acanthocytes (Spur) Not Reportable 09/27/20 04:07 Rouleaux Not Reportable 09/27/20 04:07 Hemoglobin C Crystals Not Reportable 09/27/20 04:07 Schistocytes Rare 09/27/20 04:07 Malaria parasites Not Reportable 09/27/20 04:07 Juan Antonio Bodies Not Reportable 09/27/20 04:07 Hem Pathologist Commnt No 09/27/20 04:07 PT 15.7 Sec. (12.2-14.9) H 09/23/20 11:55 INR 1.20 (0.87-1.13) H 09/23/20 11:55 APTT 41.3 Sec. (24.2-36.6) H 09/23/20 11:55 Sodium 140 mmol/L (137-145) 09/27/20 04:07 Potassium 3.4 mmol/L (3.6-5.0) L 09/27/20 04:07 Chloride 109.0 mmol/L (98-107) H 09/27/20 04:07 Carbon Dioxide 19 mmol/L (22-30) L 09/27/20 04:07 Anion Gap 15 mmol/L 09/27/20 04:07 BUN 35 mg/dL (9-20) H 09/27/20 04:07 Creatinine 1.6 mg/dL (0.8-1.3) H 09/27/20 04:07 Estimated GFR 50 ml/min 09/27/20 04:07 BUN/Creatinine Ratio 22 % 09/27/20 04:07 Glucose 141 mg/dL (75-100) H 09/27/20 04:07 POC Glucose 129 mg/dL (70-105) H 09/26/20 20:58 Lactic Acid 1.90 mmol/L (0.7-2.0) 09/23/20 11:55 Calcium 6.7 mg/dL (8.4-10.2) L 09/27/20 04:07 Total Bilirubin 0.40 mg/dL (0.1-1.2) 09/23/20 11:55 Direct Bilirubin < 0.2 mg/dL (0-0.2) 09/23/20 11:55 Indirect Bilirubin 0.2 mg/dL 09/23/20 11:55 AST 42 units/L (5-40) H 09/23/20 11:55 ALT 26 units/L (7-56) 09/23/20 11:55 Alkaline Phosphatase 71 units/L (35-129) 09/23/20 11:55 Troponin T < 0.010 ng/mL (0.00-0.029) 09/23/20 14:59 NT-Pro-B Natriuret Pep 339.9 pg/mL (0-900) 09/23/20 11:55 Total Protein 4.2 g/dL (6.3-8.2) L 09/23/20 11:55 Albumin 1.9 g/dL (3.9-5) L 09/23/20 11:55 Albumin/Globulin Ratio 0.8 % 09/23/20 11:55 Lipase 98 units/L (13-60) H 09/23/20 11:55 Urine Color Martha (Yellow) 09/23/20 Unknown Urine Turbidity Slightly-cloudy (Clear) 09/23/20 Unknown Urine pH 5.0 (5.0-7.0) 09/23/20 Unknown Ur Specific [place] 1.019 (1.003-1.030) 09/23/20 Unknown Urine Protein <15 mg/dl mg/dL (Negative) 09/23/20 Unknown Urine Glucose (UA) Neg mg/dL (Negative) 09/23/20 Unknown Urine Ketones Neg mg/dL (Negative) 09/23/20 Unknown Urine Blood Lg (Negative) 09/23/20 Unknown Urine Nitrite Neg (Negative) 09/23/20 Unknown Urine Bilirubin Neg (Negative) 09/23/20 Unknown Urine Urobilinogen < 2.0 mg/dL (<2.0) 09/23/20 Unknown Ur Leukocyte Esterase Neg (Negative) 09/23/20 Unknown Urine WBC (Auto) 64.0 /HPF (0.0-6.0) H 09/23/20 Unknown Urine RBC (Auto) 63.0 /HPF (0.0-6.0) 09/23/20 Unknown U Epithel Cells (Auto) 1.0 /HPF (0-13.0) 09/23/20 Unknown Urine Bacteria (Auto) 1+ /HPF (Negative) 09/23/20 Unknown Hyaline Casts 1 /LPF 09/23/20 Unknown Urine Mucus Few /HPF 09/23/20 Unknown Urine Yeast (Budding) 1+ /HPF 09/23/20 Unknown Coronavirus (PCR) Negative (Negative) 09/24/20 10:41 Microbiology: Microbiology 09/23/20 12:02 Peripheral/Venous Blood Culture - Preliminary NO GROWTH AFTER 72 HOURS 09/23/20 11:55 Peripheral/Venous Blood Culture - Preliminary NO GROWTH AFTER 72 HOURS [place]/IV: Voiding Method Condom Catheter Active Medications - Current Medications Current Medications: Generic Name Dose Route Start Last Admin Trade Name Freq PRN Reason Stop Dose Admin Acetaminophen 650 mg 09/23/20 16:23 Acetaminophen 325 Mg Tab PO Q4H PRN Pain MILD(1-3)/Fever >100.5/GUY Albuterol 2.5 mg 09/23/20 16:23 Albuterol 2.5 Mg/3 Ml Nebu IH Q4HRT PRN Shortness Of Breath Donepezil HCl 10 mg 09/23/20 22:00 09/26/20 22:07 Donepezil 10 Mg Tab PO Not Given QHS JEVON Hydromorphone HCl 0.5 mg 09/23/20 16:23 Hydromorphone 1 Mg/1 Ml Inj IV Q12H PRN Pain , Severe (7-10) Ceftriaxone Sodium 1 gm in 50 mls @ 100 mls/hr 09/24/20 11:00 09/26/20 10:50 Rocephin/Ns 1 Gm/50 Ml IV 100 mls/hr Q24H JEVON Administration Protocol Dextrose/Sodium Chloride 1,000 mls @ 75 mls/hr 09/26/20 18:00 09/27/20 08:16 D5/0.45ns IV 75 mls/hr DIRECT JEVON Administration Mirtazapine 15 mg 09/23/20 22:00 09/26/20 22:08 Mirtazapine 15 Mg Tab PO Not Given QHS JEVON Ondansetron HCl 4 mg 09/23/20 16:23 Ondansetron 4 Mg/2 Ml Inj IV Q8H PRN Nausea And Vomiting Oxycodone/Acetaminophen 1 tab 09/23/20 16:23 Oxycodone /Acetaminophen 5-325mg Tab PO Q12H PRN Pain, Moderate (4-6) Sodium Chloride 10 ml 09/23/20 22:00 09/26/20 22:11 Sodium Chloride 0.9% 10 Ml Flush Syringe IV 10 ml BID JEVON Administration Sodium Chloride 10 ml 09/23/20 16:23 Sodium Chloride 0.9% 10 Ml Flush Syringe IV PRN PRN LINE FLUSH Tamsulosin HCl 0.4 mg 09/24/20 10:00 09/26/20 10:50 Tamsulosin 0.4 Mg Cap PO 0.4 mg QDAY JEVON Administration Trazodone HCl 50 mg 09/24/20 10:00 09/26/20 10:50 Trazodone 50 Mg Tab PO 50 mg QDAY JEVON Administration Vancomycin HCl 125 mg 09/23/20 18:00 09/27/20 05:22 Vancomycin 250 Mg/10 Ml Oral Liqd PO 09/29/20 01:59 Not Given Q6HR JEVON
--- NOTE | 2020-09-27 10:43 | XRay Report ---
CHEST 1 VIEW 09/27/2020 9:36 AM INDICATION / CLINICAL INFORMATION: dyspnea. COMPARISON: September 23, 2020 FINDINGS: SUPPORT DEVICES: None. HEART / MEDIASTINUM: No significant abnormality. LUNGS / PLEURA: Increased opacities in bilateral lungs most significant in the right lower lung. No p neumothorax ADDITIONAL FINDINGS: No significant additional findings. IMPRESSION: 1. Increased opacity in the right lower lung. Signer Name: Jonathan Dietz MD Signed: 09/27/2020 10:39 AM Workstation Name: [id number]
[2020-09-27] MEDS: cefTRIAXone/NS 1 GM/50 ML 1 GM/50 ML BAG IV SCH (12:16)
[2020-09-27] MEDS: TAMSULOSIN 0.4 MG CAP PO SCH (12:23)
[2020-09-27] MEDS: traZODone 50 MG TAB PO SCH (12:23)
[2020-09-27] MEDS: DONEPEZIL 10 MG TAB PO SCH (22:00)
[2020-09-27] MEDS: MIRTAZAPINE 15 MG TAB PO SCH (22:00)
[2020-09-28] MEDS: VANCOMYCIN 250 MG/10 ML ORAL LIQD PO SCH ×3 (07:03→11:20)
[2020-09-28 10:20] VITALS: BP 70/27
[2020-09-28] MEDS: TAMSULOSIN 0.4 MG CAP PO SCH (11:19)
[2020-09-28] MEDS: traZODone 50 MG TAB PO SCH (11:19)
--- NOTE | 2020-09-28 11:40 | Death Summary ---
Summary - Providers Date of service: 09/28/20 Consults: 09/24/20 13:52 Physical Therapy Evaluation and Treat [CONS] Routine Comment: Reason For Exam: decond Speech Therapy Evaluation and Treat [CONS] Routine Reason For Exam: swallow eval Attending: MABEL LOPEZ MD - summary Date of admission: 09/24/20 13:51 Date of : 09/28/20 Significant findings: HPI: 84 YO Male Care [facility] resident with Alzheimers Dementia, CKD, BPH presents to ED for evaluation. Pt is confused, lethargic and with diminished cognition and is unable to provide history as the time of my evaluation. Pt history taken from EMS staff, ED staff, Care Home Facility Staff, as well as patient daughter who made herself available via telephone for interview. As per staff, the patient was found to have worsening weakness, confusion, as well as hypotension with systolic blood pressure in the 80's. EMS was notified and upon arrival the patient was found to be hypotensive and in distress. Pt transported to [facility] for further care and evaluation of the aforementioned symptoms. Pt found to have volume depletion, as well as end stage Alzheimers Dementia. Pt placed in observation status and due to increased risk of worsening symptoms. No further history obtainable. Advanced care planning conducted in ED. UTI. Toxic metabolic encephalopathy. Acute renal failure secondary to vasomotor nephropathy +/-ATN/sepsis/hypotension Alzheimers Dementia recent Cdiff Colitis 09/24/2020. Patient remains confused and somnolent. Initiate IV antibiotics of Rocephin. Follow-up blood and urine cultures. Sepsis pathway. Continue IV fluid hydration and follow-up BMP. 09/25/2020. Patient remains confused and somnolent. Continue IV antibiotics of Rocephin. Follow-up blood and urine cultures. Currently no growth x24 hours. Continue sepsis pathway. Continue IV fluid hydration and follow-up BMP. 09/26/2020. Patient remains confused and somnolent. Unsure of patient's baseline. Will attempt to contact family again today. Urine and blood cultures negative x48 hours. Continue IV antibiotics and IV fluid hydration 09/27/2020. Patient apparently had an episode of hypotension and respiratory distress last evening. Nurse practitioner reportedly started the patient on BiPAP. Patient also received IV bolus. We will check chest x-ray and ABG stat. I discussed the patient's baseline mental status with the daughter, Kellee Smith who informed me that the patient is essentially nonverbal and only responds occasionally with yes or no answers. I recalled Ms. Smith to update her with change of condition but no answer. Blood and urine cultures remain negative. I suspect patient is near baseline mental status. Patient still with some mild renal insufficiency. Continue IV fluid hydration. Anticipate discharge in the next 1 to 2 days if continues to remain stable 09/28/2020: Patient this morning was hypotensive with systolic blood pressure in 50s, bradycardic with pulse in 30s, and saturations in 60s. Per chart review he is a DNR/DNI. Evaluated patient at bedside. He remains encephalopathic and was on BiPAP. Call made to daughter this morning regarding patient's poor clinical condition and deterioration. We discussed plans for hospice placement however I stated to her that he may not make it to hospice facility. She stated she would be coming to hospital to see her father. On subsequent encounter, patient daughter was present. During our encounter it was noted that patient heart rhythm was asystole. Examination was completed and no heart beat was auscultated. Pupils were fixed and dilated. BiPAP mask was removed and machine was turned off. Time of was declared at 11:30 AM. Patient daughter was supported at bedside. cotton broker, patient RN, outpatient case manager present during this encounter. - Final diagnosis (1) Respiratory failure Note: Final diagnosis: (2) Toxic encephalopathy Note: Final diagnosis: (3) Acute hypotension Note: Final diagnosis: (4) Alzheimer's dementia Note: Final diagnosis: (5) Acute kidney injury Note: Final diagnosis: (6) SIRS (systemic inflammatory response syndrome) Note: Final diagnosis:
--- NOTE | 2020-09-28 11:46 | Death Note ---
Note Date of : 09/28/20 Time of : 11:30 Time Pronounced: 11:30 - Preliminary Cause of (problem) (1) Respiratory failure Qualifiers: Respiratory failure complication: unspecified whether with hypoxia or hypercapnia Preliminary cause of (2) Toxic encephalopathy Preliminary cause of (3) Acute hypotension Preliminary cause of (4) Alzheimer's dementia Preliminary cause of (5) Acute kidney injury Preliminary cause of (6) SIRS (systemic inflammatory response syndrome) Preliminary cause of
== END 2020-09-28 16:33 | DRG 871 ==
LOC: ED 11:25 → 3A 16:25 → 4A 23:47 → OBSVTOIN 09-24 13:51
PROVIDERS: ADMIT Internal Medicine; ATTEND Internal Medicine
PROC: 4A033R1 Measurement of Arterial Saturation, Peripheral, Percutaneous Approach (ICD-10-PCS; principal; 2020-09-27)
PROC: 5A09357 Assistance with Respiratory Ventilation, Less than 24 Consecutive Hours, Continuous Positive Airway Pressure (ICD-10-PCS; 2020-09-27)
DX: A41.9 Sepsis, unspecified organism (principal); G92 Toxic encephalopathy; N17.0 Acute kidney failure with tubular necrosis; J69.0 Pneumonitis due to inhalation of food and vomit; J96.00 Acute respiratory failure, unspecified whether with hypoxia or hypercapnia; N39.0 Urinary tract infection, site not specified; R64 Cachexia; E86.9 Volume depletion, unspecified; G30.9 Alzheimer's disease, unspecified; F02.80 Dementia in other diseases classified elsewhere, unspecified severity, without behavioral disturbance, psychotic disturbance, mood disturbance, and anxiety; N18.9 Chronic kidney disease, unspecified; N40.0 Benign prostatic hyperplasia without lower urinary tract symptoms; Z82.49 Family history of ischemic heart disease and other diseases of the circulatory system; Z68.22 Body mass index [BMI] 22.0-22.9, adult; Z79.899 Other long term (current) drug therapy
CPT/HCPCS: 36415; 36600; 70450; 71045; 76770; 80048; 80076; 81001; 82140; 82805; 82962; 83690; 83880; 84484; 85007; 85025; 85610; 85730; 87040; 87086; 93005; 94640; 94660; 94760; 96374; G0378; J0696; J3370; J7030; J7050; U0003